=== PATIENT | female | born 1945 | race Caucasian/White ===

== ENCOUNTER → 2022-09-28 | Outpatient (CLI) | payer MEDICARE, MEDICAID ==
[2022-09-28 10:31] LABS: Basophils # (auto) 0 10 ^3/uL (0-0.2); Eosinophils # (auto) 0.2 10 ^3/uL (0-0.8); Eosinophils % (auto) 4.1 % (0.0-7.0); Hematocrit 36.9 % (36.0-46.0); Hemoglobin 12.2 g/dL (12.2-16.2); Lymphocytes # (auto) 1.6 10 ^3/uL (0.4-5.4); Lymphocytes % (auto) 33.6 % (10.0-50.0); Mean Corpuscular Hemoglobin 32.1 pg (28.0-32.0); Mean Corpuscular Volume 97.2 fL (80.0-100.0); Monocytes # (auto) 0.5 10 ^3/uL (0-1.3); Monocytes % (auto) 10.5 % (0.0-12.0); Neutrophils # (auto) 2.4 10 ^3/uL (1.6-8.6); Neutrophils % (auto) 50.8 % (37.0-80.0); Nucleated Red Blood Cells % 0.1 %; Red Cell Distribution Width 13.5 % (11.8-14.3); White Blood Cell 4.7 10^3/uL (4.4-10.8)
[2022-09-28 10:51] LABS: Urine Bacteria FEW /hpf (None Seen); Urine Blood Negative /uL (Negative); Urine Specific Gravity 1.021 (1.001-1.035); Urine WBC 10 /hpf (0 - 5)
[2022-09-28 11:02] LABS: Albumin 3.6 g/dL (3.4-5.0); Calcium 9.1 mg/dL (8.5-10.1); Potassium 3.6 mmol/L (3.5-5.1)
[2022-09-28 11:07] LABS: BUN/Creatinine Ratio 19.4 (10.0-20.0); Bilirubin, Total 0.4 mg/dL (0.2-1.0); Total Protein 7.6 g/dL (6.4-8.2)
== END | disposition home or self-care (01) ==
LOC: LAB 10:05
PROVIDERS: ATTEND Student in an Organized Health Care Education/Training Program
DX: I10 Essential (primary) hypertension (principal); E03.8 Other specified hypothyroidism; R06.02 Shortness of breath; Z79.899 Other long term (current) drug therapy
CPT/HCPCS: 36415; 80053; 80061; 81001; 83036; 83880; 84439; 84443; 85025

== ENCOUNTER 2023-05-27 17:38 | Inpatient (IN) | payer MEDICARE, MEDICAID ==
[~2023-05-27] VITALS: Ht 157.5 cm; Wt 69.2 kg
[2023-05-27 18:29] LABS: Basophils # (auto) 0 10 ^3/uL (0-0.2); Basophils % (auto) 0.1 % (0.0-2.0); Eosinophils # (auto) 0 10 ^3/uL (0-0.8); Hematocrit 35.3 % (36.0-46.0); Hemoglobin 11.7 g/dL (12.2-16.2); Lymphocytes # (auto) 0.9 10 ^3/uL (0.4-5.4); Lymphocytes % (auto) 12.2 % (10.0-50.0); Mean Corpuscular Hemoglobin 31.5 pg (28.0-32.0); Mean Corpuscular Hgb Conc. 33.1 g/dL (32.0-36.0); Monocytes # (auto) 0.7 10 ^3/uL (0-1.3); Monocytes % (auto) 9.4 % (0.0-12.0); Neutrophils % (auto) 78.3 % (37.0-80.0); Red Blood Cells 3.72 10^6/uL (4.0-5.20); White Blood Cell 7.6 10^3/uL (4.4-10.8)
[2023-05-27 18:30] VITALS: PULSE 110; RESP 15; O2SAT 94
[2023-05-27 18:43] LABS: Prothrombin Time 10.5 sec (9.3-11.8)
[2023-05-27 18:46] LABS: Alanine Aminotransferase 47 U/L (7-40); Albumin 3.9 g/dL (3.2-4.8); Alkaline Phosphatase 99 U/L (46-116); Anion Gap 12 (5-15); Aspartate Aminotransferase 66 U/L (13-40); BUN/Creatinine Ratio 17.7 (10.0-20.0); Blood Urea Nitrogen 11 mg/dL (9-23); Calcium 8.5 mg/dL (8.7-10.4); Carbon Dioxide 18 mmol/L (20-30); Chloride 106 mmol/L (98-107); Glucose 113 mg/dL (74-106); Magnesium 1.6 mg/dL (1.6-2.6); Potassium 3.3 mmol/L (3.5-5.1); Sodium 136 mmol/L (136-145)
[2023-05-27 18:47] LABS: Bilirubin, Total 0.7 mg/dL (0.2-1.0); Total Protein 6.6 g/dL (5.7-8.2)
[2023-05-27] MEDS ORDERED: MORPHINE SULFATE INJ 2 MG/ml SYRG IV ONE ×2 (19:30→20:00)
[2023-05-27] MEDS ORDERED: ONDANSETRON HCL 4 MG/2 ML VIAL IV ONE (19:30)
[2023-05-27] MEDS ORDERED: NITROGLYCERIN 0.4 MG SL TAB SL ONE (20:30)
[2023-05-27] MEDS ORDERED: ASPirin 81 mg TAB PO ONE (20:30)
[2023-05-27 21:25] LABS: Rapid Influenza A Negative (Negative); Rapid Influenza B Negative (Negative)
[2023-05-27 21:26] LABS: COVID19 ANTIGEN SOFIA FIA POSITIVE (NEGATIVE)
[2023-05-27 23:10] VITALS: PULSE 92; RESP 22; O2SAT 97
[2023-05-28] VITALS (9 sets, daily range): BP systolic 119–145; BP diastolic 72–95; PULSE 71–100; RESP 16–20; TEMP 36.9; O2SAT 96–99
[2023-05-28] MEDS ORDERED: ONDANSETRON HCL 4 MG/2 ML VIAL IV ONE (00:15)
[2023-05-28] MEDS ORDERED: NITROGLYCERIN 0.4 MG SL TAB SL ONE (00:15)
[2023-05-28] MEDS ORDERED: MORPHINE SULFATE INJ 2 MG/ml SYRG IV ONE (00:15)
[2023-05-28] MEDS ORDERED: LORazepam 2MG/ML-1ML VIAL IV ONE (01:45)
[2023-05-28] MEDS ORDERED: ENOXAPARIN SOD 60 MG/0.6 ML SYRINGE SC ONE (02:15)
[2023-05-28] MEDS ORDERED: PANTOPRAZOLE 40 MG/10 ML VIAL INJ IV ONE (02:15)
[2023-05-28] MEDS ORDERED: ACETAMINOPHEN 500 MG TAB PO PRN (02:15)
[2023-05-28] MEDS ORDERED: guaiFENesin-DM 100/10mg/5ml SYR PO ONE (02:15)
[2023-05-28] MEDS ORDERED: REMDESIVIR PER PHARMACY 0 ML IV SCH (02:15)
[2023-05-28] MEDS ORDERED: DOXYCYCLINE 100MG/250ML 250 ML IV SCH (02:19)
[2023-05-28 02:26] LABS: Base Excess -2.9 mmol/L (-2.0-2.0)
[2023-05-28] MEDS ORDERED: NITROGLYCERIN 0.4 MG SL TAB SL PRN (02:30)
[2023-05-28] MEDS ORDERED: ONDANSETRON HCL 4 MG/2 ML VIAL IV PRN (02:30)
[2023-05-28] MEDS ORDERED: MORPHINE SULFATE INJ 2 MG/ml SYRG IV PRN (02:30)
[2023-05-28] MEDS ORDERED: ENOXAPARIN SOD 80 MG/0.8ML SYRINGE SC ONE (02:45)
[2023-05-28] MEDS ORDERED: ENOXAPARIN SOD 80 MG/0.8ML SYRINGE SC SCH (03:00)
[2023-05-28 03:13] LABS: Magnesium 1.8 mg/dL (1.6-2.6)
[2023-05-28] MEDS: AZITHROMYCIN 500MG/ 250ML 250 ML IV SCH ×2 (03:36→22:28)
[2023-05-28 03:37] LABS: CRP High Sensitivity 11.98 mg/dL (<1.0)
[2023-05-28 03:40] LABS: Thyroid Stimulating Hormone 0.57 uIU/mL (0.358-3.74)
[2023-05-28] MEDS: IOHEXOL 350 MG/ML 100ML IJ ONE ×2 (03:53→06:11)
[2023-05-28 09:20] LABS: Urine Bacteria MOD /hpf (None Seen); Urine Blood 1+ /uL (Negative); Urine Clarity Clear (Clear); Urine Color Yellow (Yellow); Urine Mucus FEW (None Seen); Urine Protein, UAD 3+ (Negative); Urine WBC 11 /hpf (0 - 5); Urine pH 6.5 (5.0-8.0)
[2023-05-28 09:26] LABS: Urine Specific Gravity > 1.050 (1.001-1.035)
[2023-05-28] MEDS: DexAMETHasone SOD PHOS 10MG/1ML VIAL INJ IV SCH (09:36)
[2023-05-28] MEDS: ASCORBIC ACID 1,000 MG TAB PO SCH (09:37)
[2023-05-28] MEDS: CHOLECALCIFEROL (VITD3) 2,000 UNIT CAP/TAB PO SCH (09:37)
[2023-05-28] MEDS ORDERED: REMDESIVIR 200 MG in NS 210ml LOADING DOSE ADULT IV ONE (10:00)
[2023-05-28] MEDS ORDERED: ENOXAPARIN SOD 60 MG/0.6 ML SYRINGE SC SCH (10:00)
[2023-05-28 11:07] LABS: Basophils # (auto) 0 10 ^3/uL (0-0.2); Basophils % (auto) 0.2 % (0.0-2.0); Eosinophils # (auto) 0 10 ^3/uL (0-0.8); Eosinophils % (auto) 0.3 % (0.0-7.0); Hematocrit 33.7 % (36.0-46.0); Hemoglobin 10.8 g/dL (12.2-16.2); Lymphocytes # (auto) 0.5 10 ^3/uL (0.4-5.4); Mean Corpuscular Hemoglobin 31.3 pg (28.0-32.0); Mean Corpuscular Hgb Conc. 32.2 g/dL (32.0-36.0); Mean Corpuscular Volume 97.5 fL (80.0-100.0); Monocytes # (auto) 0.4 10 ^3/uL (0-1.3); Monocytes % (auto) 8.4 % (0.0-12.0); Neutrophils # (auto) 3.9 10 ^3/uL (1.6-8.6); Neutrophils % (auto) 80.1 % (37.0-80.0); Nucleated Red Blood Cells % 0.1 %; Red Blood Cells 3.45 10^6/uL (4.0-5.20); Red Cell Distribution Width 14.2 % (11.8-14.3); White Blood Cell 4.9 10^3/uL (4.4-10.8)
[2023-05-28] MEDS ORDERED: PRAV20TA3 PO (11:09)
[2023-05-28] MEDS ORDERED: LEVO-177 PO (11:09)
[2023-05-28] MEDS ORDERED: TOPI50TA53 PO (11:09)
[2023-05-28] MEDS ORDERED: PRIM50TA5 PO (11:09)
[2023-05-28] MEDS ORDERED: CELE1CAP8 PO (11:09)
[2023-05-28] MEDS ORDERED: CLON0.1T PO (11:09)
[2023-05-28] MEDS ORDERED: MIRA50TA PO (11:09)
[2023-05-28] MEDS ORDERED: SUL500T PO (11:09)
[2023-05-28] MEDS ORDERED: FLUT230A2 (11:09)
[2023-05-28] MEDS ORDERED: ISOS1TAB28 PO (11:09)
[2023-05-28] MEDS ORDERED: LABE200T6 PO (11:09)
[2023-05-28] MEDS ORDERED: LOSA100T58 PO (11:09)
[2023-05-28] MEDS: BUDESONIDE (INHALATION) 180 MCG IH IN SCH ×2 (11:10→22:30)
[2023-05-28 11:26] LABS: Alanine Aminotransferase 66 U/L (7-40); Albumin 3.7 g/dL (3.2-4.8); Alkaline Phosphatase 113 U/L (46-116); Anion Gap 10 (5-15); Aspartate Aminotransferase 84 U/L (13-40); BUN/Creatinine Ratio 16.1 (10.0-20.0); Blood Urea Nitrogen 10 mg/dL (9-23); Calcium 9.2 mg/dL (8.5-10.1); Carbon Dioxide 21 mmol/L (20-30); Chloride 108 mmol/L (98-107); Glucose 133 mg/dL (74-106); LDL Cholesterol 57 mg/dL (< 100); Potassium 3.2 mmol/L (3.5-5.1); Sodium 139 mmol/L (136-145); Triglycerides 144 mg/dL (< 150)
[2023-05-28 11:27] LABS: Bilirubin, Total 0.6 mg/dL (0.2-1.0); Cholesterol 121 mg/dL (< 200); HDL Cholesterol 43 mg/dL (40-59); Total Protein 6.6 g/dL (5.7-8.2)
[2023-05-28 11:47] LABS: Amphetamine Screen, Urine Neg (NEGATIVE); Barbiturate Scree,Urine Neg (NEGATIVE); Benzodiazephine Screen, Urine Neg (NEGATIVE); Cannabinoid Screen, Urine Neg (NEGATIVE); Cocaine Screen, Urine Neg (NEGATIVE); Opiate Scree,Urine Pos (NEGATIVE); Phencyclidine Screen, Urine Neg (NEGATIVE)
[2023-05-28] MEDS ORDERED: POTASSIUM CHL 20 Meq TABLET PO ONE (12:30)
[2023-05-28] MEDS ORDERED: BACL20TA PO (13:09)
[2023-05-28] MEDS ORDERED: ASPI81CH59 PO (13:09)
[2023-05-28] MEDS ORDERED: DENO60SO SC (13:09)
[2023-05-28] MEDS ORDERED: HYDR25TA5 GT (13:09)
[2023-05-28] MEDS ORDERED: ESOM20CA PO (13:09)
[2023-05-28] MEDS ORDERED: CALCTAB50 OR (13:09)
[2023-05-28] MEDS: PRIMIDONE 50 MG TAB PO SCH (22:27)
[2023-05-28] MEDS: LABETALOL HCL 200 MG TAB PO SCH (22:28)
[2023-05-28] MEDS: TOPIRAMATE 25 MG TAB PO SCH (22:28)
[2023-05-29] VITALS (11 sets, daily range): BP systolic 115–156; BP diastolic 55–95; PULSE 60–82; RESP 16–22; TEMP 97.5–98.4; O2SAT 95–99
[2023-05-29] MEDS: LEVOTHYROXINE SODIUM 88 MCG TAB PO SCH (05:51)
[2023-05-29 06:05] LABS: Basophils # (auto) 0 10 ^3/uL (0-0.2); Basophils % (auto) 0.2 % (0.0-2.0); Eosinophils # (auto) 0 10 ^3/uL (0-0.8); Hematocrit 33.6 % (36.0-46.0); Hemoglobin 11.1 g/dL (12.2-16.2); Lymphocytes # (auto) 0.5 10 ^3/uL (0.4-5.4); Lymphocytes % (auto) 15.1 % (10.0-50.0); Mean Corpuscular Hemoglobin 31.6 pg (28.0-32.0); Mean Corpuscular Volume 95.6 fL (80.0-100.0); Monocytes # (auto) 0.6 10 ^3/uL (0-1.3); Monocytes % (auto) 17.8 % (0.0-12.0); Neutrophils # (auto) 2.2 10 ^3/uL (1.6-8.6); Neutrophils % (auto) 66.9 % (37.0-80.0); Nucleated Red Blood Cells % 0.2 %; Red Blood Cells 3.51 10^6/uL (4.0-5.20); Red Cell Distribution Width 14.1 % (11.8-14.3); White Blood Cell 3.3 10^3/uL (4.4-10.8)
[2023-05-29 06:30] LABS: Alanine Aminotransferase 51 U/L (7-40); Albumin 3.8 g/dL (3.2-4.8); Alkaline Phosphatase 95 U/L (46-116); Anion Gap 7 (5-15); Aspartate Aminotransferase 53 U/L (13-40); BUN/Creatinine Ratio 21.9 (10.0-20.0); Blood Urea Nitrogen 14 mg/dL (9-23); Calcium 9.2 mg/dL (8.7-10.4); Carbon Dioxide 22 mmol/L (20-30); Chloride 111 mmol/L (98-107); Glucose 120 mg/dL (74-106); Magnesium 1.9 mg/dL (1.6-2.6); Potassium 4.2 mmol/L (3.5-5.1); Sodium 140 mmol/L (136-145)
[2023-05-29 06:31] LABS: Bilirubin, Total 0.4 mg/dL (0.2-1.0); Total Protein 6.8 g/dL (5.7-8.2)
[2023-05-29 07:15] LABS: CRP High Sensitivity 8.59 mg/dL (<1.0)
[2023-05-29] MEDS: BUDESONIDE (INHALATION) 180 MCG IH IN SCH ×2 (10:20→19:29)
[2023-05-29] MEDS: DexAMETHasone SOD PHOS 10MG/1ML VIAL INJ IV SCH (10:41)
[2023-05-29] MEDS: LABETALOL HCL 200 MG TAB PO SCH ×2 (10:41→20:44)
[2023-05-29] MEDS: hydroCHLOROthiazide 25 MG TAB PO SCH (10:42)
[2023-05-29] MEDS: TOPIRAMATE 25 MG TAB PO SCH ×2 (10:42→20:44)
[2023-05-29] MEDS: CHOLECALCIFEROL (VITD3) 2,000 UNIT CAP/TAB PO SCH (10:42)
[2023-05-29] MEDS: ASCORBIC ACID 1,000 MG TAB PO SCH (10:42)
[2023-05-29] MEDS: PRIMIDONE 50 MG TAB PO SCH ×2 (10:43→20:45)
[2023-05-29] MEDS: ENOXAPARIN SOD 40 MG/0.4 ML SYRINGE SC SCH (10:45)
[2023-05-29] MEDS: ALBUTEROL SULF HFA 90MCG INH 200DOSE IN PRN (12:03)
[2023-05-29] MEDS: ACETAMINOPHEN 325 MG TAB PO PRN (13:16)
[2023-05-29] MEDS: REMDESIVIR 100mg 100 MG in SODIUM CHL 0.9% 230 ML IV SCH (15:29)
[2023-05-29] MEDS: LEVALBUTEROL HCL 1.25 MG/3 ML NEB HHN SCH (19:28)
[2023-05-29] MEDS: AZITHROMYCIN 500MG/ 250ML 250 ML IV SCH (20:45)
[2023-05-29] MEDS ORDERED: ACETYLCYSTEINE 20%(200MG/ML) SOL 4ML NEB SCH (22:00)
[2023-05-30] VITALS (17 sets, daily range): BP systolic 103–157; BP diastolic 53–79; PULSE 62–90; RESP 18–20; TEMP 97.6–98.5; O2SAT 95–100
[2023-05-30] MEDS: ACETYLCYSTEINE 20%(200MG/ML) SOL 4ML NEB SCH ×4 (01:22→20:02)
[2023-05-30] MEDS: LEVALBUTEROL HCL 1.25 MG/3 ML NEB HHN SCH ×4 (01:22→20:02)
[2023-05-30] MEDS: LEVOTHYROXINE SODIUM 88 MCG TAB PO SCH (06:27)
[2023-05-30 06:50] LABS: Basophils # (auto) 0 10 ^3/uL (0-0.2); Basophils % (auto) 0.2 % (0.0-2.0); Eosinophils # (auto) 0 10 ^3/uL (0-0.8); Hematocrit 32.4 % (36.0-46.0); Hemoglobin 10.8 g/dL (12.2-16.2); Lymphocytes # (auto) 0.7 10 ^3/uL (0.4-5.4); Lymphocytes % (auto) 16.1 % (10.0-50.0); Mean Corpuscular Hemoglobin 31.6 pg (28.0-32.0); Mean Corpuscular Hgb Conc. 33.2 g/dL (32.0-36.0); Mean Corpuscular Volume 95.2 fL (80.0-100.0); Monocytes # (auto) 0.8 10 ^3/uL (0-1.3); Monocytes % (auto) 17.8 % (0.0-12.0); Neutrophils # (auto) 2.9 10 ^3/uL (1.6-8.6); Neutrophils % (auto) 65.9 % (37.0-80.0); Nucleated Red Blood Cells % 0.1 %; Red Cell Distribution Width 13.7 % (11.8-14.3); White Blood Cell 4.3 10^3/uL (4.4-10.8)
[2023-05-30 06:59] LABS: Alanine Aminotransferase 38 U/L (7-40); Alkaline Phosphatase 86 U/L (46-116); Anion Gap 7 (5-15); BUN/Creatinine Ratio 27.1 (10.0-20.0); Blood Urea Nitrogen 16 mg/dL (9-23); Calcium 9.1 mg/dL (8.7-10.4); Carbon Dioxide 24 mmol/L (20-30); Chloride 106 mmol/L (98-107); Glucose 107 mg/dL (74-106); Potassium 3.5 mmol/L (3.5-5.1); Sodium 137 mmol/L (136-145)
[2023-05-30 07:01] LABS: Albumin 3.7 g/dL (3.2-4.8); Aspartate Aminotransferase 27 U/L (13-40); Bilirubin, Total 0.4 mg/dL (0.2-1.0); Total Protein 6.6 g/dL (5.7-8.2)
[2023-05-30] MEDS: BUDESONIDE (INHALATION) 180 MCG IH IN SCH ×2 (07:55→20:03)
[2023-05-30] MEDS: CHOLECALCIFEROL (VITD3) 2,000 UNIT CAP/TAB PO SCH (08:40)
[2023-05-30] MEDS: hydroCHLOROthiazide 25 MG TAB PO SCH (08:40)
[2023-05-30] MEDS: ASCORBIC ACID 1,000 MG TAB PO SCH (08:40)
[2023-05-30] MEDS: PRIMIDONE 50 MG TAB PO SCH ×2 (08:40→22:21)
[2023-05-30] MEDS: DexAMETHasone SOD PHOS 10MG/1ML VIAL INJ IV SCH (08:40)
[2023-05-30] MEDS: TOPIRAMATE 25 MG TAB PO SCH ×2 (08:40→22:21)
[2023-05-30] MEDS: LABETALOL HCL 200 MG TAB PO SCH ×2 (08:41→22:25)
[2023-05-30] MEDS: ENOXAPARIN SOD 40 MG/0.4 ML SYRINGE SC SCH (08:41)
[2023-05-30] MEDS ORDERED: POTASSIUM EFFERVESENT TAB 25 MEQ PO ONE (08:45)
[2023-05-30 12:02] LABS: Bilirubin, Direct 0.2 mg/dL (<0.3)
[2023-05-30 12:10] LABS: CRP High Sensitivity 3.33 mg/dL (<1.0)
[2023-05-30] MEDS: REMDESIVIR 100mg 100 MG in SODIUM CHL 0.9% 230 ML IV SCH (16:00)
[2023-05-30] MEDS: ALBUTEROL SULF HFA 90MCG INH 200DOSE IN PRN (16:53)
[2023-05-30] MEDS: FUROSEMIDE 20 MG/2 ML VIAL IV SCH (18:02)
[2023-05-30] MEDS: AZITHROMYCIN 500MG/ 250ML 250 ML IV SCH (22:20)
[2023-05-30] MEDS: ACETAMINOPHEN 325 MG TAB PO PRN (22:21)
[2023-05-31] VITALS (17 sets, daily range): BP systolic 109–145; BP diastolic 44–85; PULSE 67–89; RESP 16–20; TEMP 97.6–98.7; O2SAT 94–100
[2023-05-31] MEDS: ACETYLCYSTEINE 20%(200MG/ML) SOL 4ML NEB SCH ×4 (00:50→18:00)
[2023-05-31] MEDS: LEVALBUTEROL HCL 1.25 MG/3 ML NEB HHN SCH ×4 (00:50→18:44)
[2023-05-31] MEDS: FUROSEMIDE 20 MG/2 ML VIAL IV SCH ×3 (05:56→18:06)
[2023-05-31] MEDS: LEVOTHYROXINE SODIUM 88 MCG TAB PO SCH (05:56)
[2023-05-31 06:55] LABS: Alanine Aminotransferase 33 U/L (7-40); Albumin 3.8 g/dL (3.2-4.8); Alkaline Phosphatase 79 U/L (46-116); Anion Gap 10 (5-15); Aspartate Aminotransferase 28 U/L (13-40); BUN/Creatinine Ratio 22.4 (10.0-20.0); Bilirubin, Direct 0.2 mg/dL (<0.3); Blood Urea Nitrogen 15 mg/dL (9-23); Calcium 9.5 mg/dL (8.5-10.1); Carbon Dioxide 25 mmol/L (20-30); Chloride 102 mmol/L (98-107); Glucose 88 mg/dL (74-106); Potassium 3.3 mmol/L (3.5-5.1); Sodium 137 mmol/L (136-145)
[2023-05-31 06:56] LABS: Bilirubin, Total 0.4 mg/dL (0.2-1.0); Hematocrit 33.4 % (36.0-46.0); Hemoglobin 11.3 g/dL (12.2-16.2); Mean Corpuscular Hgb Conc. 33.8 g/dL (32.0-36.0); Mean Corpuscular Volume 94.5 fL (80.0-100.0); Red Blood Cells 3.53 10^6/uL (4.0-5.20); Red Cell Distribution Width 13.8 % (11.8-14.3); Total Protein 6.8 g/dL (5.7-8.2); White Blood Cell 5.5 10^3/uL (4.4-10.8)
[2023-05-31 07:01] LABS: Band Neutrophils % (manual) 0; Basophils % (manual) 0 (0.0-2.0); Blast Cells 0; Eosinophils % (manual) 0 (0-7); Metamyelocytes % 0; Myelocytes % 0; Promyelocytes % 0; Reactive Lymphocytes 0
[2023-05-31 07:04] LABS: CRP High Sensitivity 1.72 mg/dL (<1.0)
[2023-05-31] MEDS: BUDESONIDE (INHALATION) 180 MCG IH IN SCH ×2 (07:37→18:44)
[2023-05-31] MEDS ORDERED: POTASSIUM CHLORIDE 20 MEQ, LIDOCAINE 1% (LOCAL ANESTH.) 2 ML in SODIUM CHL 0.9% 100 ML IV ONE (08:30)
[2023-05-31 09:40] LABS: Lymphocytes % (manual) 26 (10.0-50.0); Monocytes % (manual) 14 (0-12)
[2023-05-31] MEDS: CHOLECALCIFEROL (VITD3) 2,000 UNIT CAP/TAB PO SCH (09:40)
[2023-05-31] MEDS: hydroCHLOROthiazide 25 MG TAB PO SCH (09:40)
[2023-05-31] MEDS: ASCORBIC ACID 1,000 MG TAB PO SCH (09:40)
[2023-05-31] MEDS: LABETALOL HCL 200 MG TAB PO SCH ×2 (09:40→21:20)
[2023-05-31] MEDS: DexAMETHasone SOD PHOS 10MG/1ML VIAL INJ IV SCH (09:40)
[2023-05-31] MEDS: TOPIRAMATE 25 MG TAB PO SCH ×2 (09:40→21:06)
[2023-05-31 09:41] LABS: Platelet Estimate Adequate
[2023-05-31] MEDS: ENOXAPARIN SOD 40 MG/0.4 ML SYRINGE SC SCH (09:41)
[2023-05-31] MEDS: ENALAPRIL MALEATE 2.5 MG TAB PO SCH ×2 (09:41→21:20)
[2023-05-31] MEDS: PRIMIDONE 50 MG TAB PO SCH ×2 (09:41→21:06)
[2023-05-31] MEDS: REMDESIVIR 100mg 100 MG in SODIUM CHL 0.9% 230 ML IV SCH (16:40)
[2023-05-31] MEDS: AZITHROMYCIN 500MG/ 250ML 250 ML IV SCH (21:07)
[2023-06-01] VITALS (16 sets, daily range): BP systolic 99–164; BP diastolic 62–92; PULSE 70–89; RESP 16–20; TEMP 98.4–99.1; O2SAT 93–99
[2023-06-01] MEDS: LEVALBUTEROL HCL 1.25 MG/3 ML NEB HHN SCH ×4 (00:10→18:20)
[2023-06-01] MEDS: ACETYLCYSTEINE 20%(200MG/ML) SOL 4ML NEB SCH ×4 (00:11→18:20)
[2023-06-01 05:38] LABS: Hematocrit 33.3 % (36.0-46.0); Mean Corpuscular Hemoglobin 31.2 pg (28.0-32.0); Mean Corpuscular Hgb Conc. 33.1 g/dL (32.0-36.0); Mean Corpuscular Volume 94.2 fL (80.0-100.0); Red Blood Cells 3.54 10^6/uL (4.0-5.20); Red Cell Distribution Width 13.8 % (11.8-14.3); White Blood Cell 5.7 10^3/uL (4.4-10.8)
[2023-06-01 05:51] LABS: Basophils % (manual) 0 (0.0-2.0); Blast Cells 0; Metamyelocytes % 0; Myelocytes % 0; Promyelocytes % 0; Reactive Lymphocytes 0
[2023-06-01 05:58] LABS: Alanine Aminotransferase 35 U/L (7-40); Albumin 3.7 g/dL (3.2-4.8); Alkaline Phosphatase 75 U/L (46-116); Anion Gap 12 (5-15); Aspartate Aminotransferase 26 U/L (13-40); BUN/Creatinine Ratio 19.4 (10.0-20.0); Blood Urea Nitrogen 13 mg/dL (9-23); Calcium 9.3 mg/dL (8.5-10.1); Carbon Dioxide 23 mmol/L (20-30); Chloride 102 mmol/L (98-107); Glucose 91 mg/dL (74-106); Potassium 2.9 mmol/L (3.5-5.1); Sodium 137 mmol/L (136-145)
[2023-06-01 05:59] LABS: Bilirubin, Direct 0.2 mg/dL (<0.3); Bilirubin, Total 0.4 mg/dL (0.2-1.0); Total Protein 6.6 g/dL (5.7-8.2)
[2023-06-01 06:08] LABS: CRP High Sensitivity 2.37 mg/dL (<1.0)
[2023-06-01] MEDS: LEVOTHYROXINE SODIUM 88 MCG TAB PO SCH (06:09)
[2023-06-01] MEDS: FUROSEMIDE 20 MG/2 ML VIAL IV SCH (06:09)
[2023-06-01 06:45] LABS: Band Neutrophils % (manual) 1; Eosinophils % (manual) 1 (0-7); Lymphocytes % (manual) 21 (10.0-50.0); Monocytes % (manual) 17 (0-12); Platelet Estimate Adequate; RBC Morphology Normal
[2023-06-01] MEDS: BUDESONIDE (INHALATION) 180 MCG IH IN SCH ×2 (07:24→18:22)
[2023-06-01] MEDS ORDERED: POTASSIUM CHLORIDE 40 MEQ, LIDOCAINE 1% (LOCAL ANESTH.) 4 ML in SODIUM CHL 0.9% 250 ML IV ONE (08:45)
[2023-06-01 09:37] LABS: Base Excess 0.6 mmol/L (-2.0-2.0)
[2023-06-01] MEDS: TOPIRAMATE 25 MG TAB PO SCH ×2 (09:43→22:00)
[2023-06-01] MEDS: DexAMETHasone SOD PHOS 10MG/1ML VIAL INJ IV SCH (09:43)
[2023-06-01] MEDS: LABETALOL HCL 200 MG TAB PO SCH ×2 (09:44→21:59)
[2023-06-01] MEDS: ASCORBIC ACID 1,000 MG TAB PO SCH (09:44)
[2023-06-01] MEDS: PRIMIDONE 50 MG TAB PO SCH ×2 (09:44→21:59)
[2023-06-01] MEDS: CHOLECALCIFEROL (VITD3) 2,000 UNIT CAP/TAB PO SCH (09:45)
[2023-06-01] MEDS: ENOXAPARIN SOD 40 MG/0.4 ML SYRINGE SC SCH (09:45)
[2023-06-01] MEDS: ENALAPRIL MALEATE 2.5 MG TAB PO SCH ×2 (09:45→22:00)
[2023-06-01] MEDS ORDERED: FUROSEMIDE 20 MG/2 ML VIAL IV SCH (10:00)
[2023-06-01] MEDS: REMDESIVIR 100mg 100 MG in SODIUM CHL 0.9% 230 ML IV SCH (15:36)
[2023-06-02] VITALS (11 sets, daily range): BP systolic 103–133; BP diastolic 47–57; PULSE 69–89; RESP 18–21; TEMP 98.3–98.7; O2SAT 92–99
[2023-06-02] MEDS: LEVALBUTEROL HCL 1.25 MG/3 ML NEB HHN SCH ×3 (00:32→14:07)
[2023-06-02 05:46] LABS: Hematocrit 33.2 % (36.0-46.0); Hemoglobin 10.8 g/dL (12.2-16.2); Mean Corpuscular Hemoglobin 31.3 pg (28.0-32.0); Mean Corpuscular Hgb Conc. 32.6 g/dL (32.0-36.0); Mean Corpuscular Volume 95.9 fL (80.0-100.0); Red Blood Cells 3.46 10^6/uL (4.0-5.20); Red Cell Distribution Width 13.8 % (11.8-14.3); White Blood Cell 5.2 10^3/uL (4.4-10.8)
[2023-06-02 05:52] LABS: Basophils % (manual) 0 (0.0-2.0); Blast Cells 0; Eosinophils % (manual) 0 (0-7); Metamyelocytes % 0; Myelocytes % 0; Promyelocytes % 0
[2023-06-02 06:03] LABS: Alanine Aminotransferase 29 U/L (7-40); Albumin 3.6 g/dL (3.2-4.8); Alkaline Phosphatase 70 U/L (46-116); Anion Gap 10 (5-15); Aspartate Aminotransferase 20 U/L (13-40); BUN/Creatinine Ratio 31.7 (10.0-20.0); Bilirubin, Total 0.4 mg/dL (0.2-1.0); Blood Urea Nitrogen 20 mg/dL (9-23); Calcium 9.2 mg/dL (8.5-10.1); Carbon Dioxide 24 mmol/L (20-30); Chloride 104 mmol/L (98-107); Glucose 97 mg/dL (74-106); Potassium 3.1 mmol/L (3.5-5.1); Sodium 138 mmol/L (136-145); Total Protein 6.4 g/dL (5.7-8.2)
[2023-06-02 06:11] LABS: CRP High Sensitivity 2.57 mg/dL (<1.0)
[2023-06-02] MEDS: LEVOTHYROXINE SODIUM 88 MCG TAB PO SCH (06:28)
[2023-06-02] MEDS: ACETYLCYSTEINE 20%(200MG/ML) SOL 4ML NEB SCH ×3 (06:48→14:07)
[2023-06-02 07:04] LABS: Band Neutrophils % (manual) 2; Lymphocytes % (manual) 27 (10.0-50.0); Monocytes % (manual) 11 (0-12); Platelet Estimate Adequate; Reactive Lymphocytes 3
[2023-06-02] MEDS ORDERED: POTASSIUM EFFERVESENT TAB 25 MEQ PO ONE (09:00)
[2023-06-02] MEDS: TOPIRAMATE 25 MG TAB PO SCH (10:46)
[2023-06-02] MEDS: PRIMIDONE 50 MG TAB PO SCH (10:46)
[2023-06-02] MEDS: ASCORBIC ACID 1,000 MG TAB PO SCH (10:46)
[2023-06-02] MEDS: DexAMETHasone SOD PHOS 10MG/1ML VIAL INJ IV SCH (10:46)
[2023-06-02] MEDS: ENOXAPARIN SOD 40 MG/0.4 ML SYRINGE SC SCH (10:47)
[2023-06-02] MEDS: ENALAPRIL MALEATE 2.5 MG TAB PO SCH (10:47)
[2023-06-02] MEDS: CHOLECALCIFEROL (VITD3) 2,000 UNIT CAP/TAB PO SCH (10:47)
[2023-06-02] MEDS: LABETALOL HCL 200 MG TAB PO SCH (10:48)
[2023-06-02] MEDS ORDERED: DEX4T PO (11:32)
[2023-06-02] MEDS ORDERED: ALBU108A5 IN (11:32)
[2023-06-02] MEDS ORDERED: AZIT-74 PO (11:57)
== END 2023-06-02 16:25 | disposition home health service (06) | DRG 177 ==
LOC: ER 17:38 → EDBD 17:38 → TELE 05-28 02:28 → TELE-WESTW 05-28 11:34
PROVIDERS: ADMIT Internal Medicine; ATTEND Internal Medicine
PROC: XW033E5 Introduction of Remdesivir Anti-infective into Peripheral Vein, Percutaneous Approach, New Technology Group 5 (ICD-10-PCS; principal; 2023-05-28)
DX: U07.1 COVID-19 (principal); I21.A1 Myocardial infarction type 2; I50.33 Acute on chronic diastolic (congestive) heart failure; J12.82 Pneumonia due to coronavirus disease 2019; J96.01 Acute respiratory failure with hypoxia; J44.0 Chronic obstructive pulmonary disease with (acute) lower respiratory infection; I24.9 Acute ischemic heart disease, unspecified; D64.9 Anemia, unspecified; M06.9 Rheumatoid arthritis, unspecified; G89.29 Other chronic pain; I49.9 Cardiac arrhythmia, unspecified; R00.0 Tachycardia, unspecified; E78.5 Hyperlipidemia, unspecified; E87.6 Hypokalemia; C50.919 Malignant neoplasm of unspecified site of unspecified female breast; I48.0 Paroxysmal atrial fibrillation; I11.0 Hypertensive heart disease with heart failure; Z23 Encounter for immunization; Z91.199 Patient's noncompliance with other medical treatment and regimen due to unspecified reason; Z88.5 Allergy status to narcotic agent
CPT/HCPCS: 36415; 36600; 71045; 71275; 80053; 80061; 80076; 80307; 81001; 82248; 82306; 82607; 82728; 82805; 83036; 83605; 83615; 83735; 83880; 84443; 84484; 85007; 85025; 85027; 85379; 85610; 85730; 86141; 87040; 87070; 87205; 87426; 87804; 93005; 93306; 94640; 97163; 99291; C9113; G0378; J1100; J2001; J2405

== ENCOUNTER → 2024-01-03 | Outpatient (CLI) | payer MEDICARE, MEDICAID ==
[~2024-01-03] MED LIST: ALBU108A5 IN; ASPI81CH59 PO; AZIT-74 PO; BACL20TA PO; CALCTAB50 OR; CELE1CAP29 PO; CLON0.1T PO; DENO60SO SC; DEX4T PO; ESOM20CA PO; FLUT230A2; HYDR25TA5 GT; ISOS1TAB28 PO; LABE200T10 PO; LEVO-177 PO; LOSA-535 PO; MIRA50TA PO; PRAV20TA3 PO; PRIM50TA5 PO; SUL500T PO; TOPI50TA53 PO
== END | disposition home or self-care (01) ==
LOC: XYW 14:03
PROVIDERS: ATTEND Student in an Organized Health Care Education/Training Program
DX: I51.89 Other ill-defined heart diseases (principal); R07.9 Chest pain, unspecified
CPT/HCPCS: 93306

== ENCOUNTER 2024-02-26 11:27 | Emergency (ER) | payer MEDICARE, MEDICAID ==
[~2024-02-26] VITALS: Ht 157.5 cm; Wt 68.0 kg
[2024-02-26 12:00] LABS: Basophils # (auto) 0.1 10 ^3/uL (0-0.2); Basophils % (auto) 0.7 % (0.0-2.0); Eosinophils # (auto) 0.2 10 ^3/uL (0-0.8); Eosinophils % (auto) 2.6 % (0.0-7.0); Hematocrit 33.9 % (36.0-46.0); Hemoglobin 11.4 g/dL (12.2-16.2); Lymphocytes # (auto) 2.4 10 ^3/uL (0.4-5.4); Lymphocytes % (auto) 28.6 % (10.0-50.0); Mean Corpuscular Hemoglobin 32.9 pg (28.0-32.0); Mean Corpuscular Hgb Conc. 33.6 g/dL (32.0-36.0); Mean Corpuscular Volume 97.9 fL (80.0-100.0); Monocytes # (auto) 0.6 10 ^3/uL (0-1.3); Monocytes % (auto) 7.3 % (0.0-12.0); Neutrophils % (auto) 60.8 % (37.0-80.0); Platelet Count (auto) 195 10^3/uL (140-450); Red Blood Cells 3.46 10^6/uL (4.0-5.20); Red Cell Distribution Width 15.5 % (11.8-14.3); White Blood Cell 8.3 10^3/uL (4.4-10.8)
[2024-02-26] MEDS: ASPirin 325 MG TAB PO ONE (12:01)
[2024-02-26] MEDS: NITROGLYCERIN 0.4 MG SL TAB SL ONE (12:03)
[2024-02-26 12:19] LABS: Alanine Aminotransferase 21 U/L (7-40); Albumin 4.1 g/dL (3.2-4.8); Alkaline Phosphatase 69 U/L (46-116); Anion Gap 9 (5-15); Aspartate Aminotransferase 18 U/L (13-40); BUN/Creatinine Ratio 24.8 (10.0-20.0); Bilirubin, Total 0.3 mg/dL (0.2-1.0); Blood Urea Nitrogen 25 mg/dL (9-23); Calcium 9.5 mg/dL (8.7-10.4); Carbon Dioxide 20 mmol/L (20-30); Chloride 111 mmol/L (98-107); Glucose 101 mg/dL (74-106); Potassium 4.4 mmol/L (3.5-5.1); Sodium 140 mmol/L (136-145)
[2024-02-26 12:28] LABS: Prothrombin Time 10.8 sec (9.3-11.8)
[2024-02-26 13:31] LABS: Urine Bacteria FEW /hpf (None Seen); Urine Budding Yeast FEW /hpf (None Seen); Urine Mucus FEW (None Seen); Urine WBC 326 /hpf (0 - 5)
[2024-02-26 13:46] LABS: Urine Blood Normal /uL (Negative); Urine Clarity Turbid (Clear); Urine Color Yellow (Yellow); Urine Protein, UAD 1+ (Negative); Urine Specific Gravity 1.016 (1.001-1.035); Urine Urobilinogen Normal (Negative)
[2024-02-26] MEDS ORDERED: NITR-87 PO (16:42)
[2024-02-26] MEDS: cefTRIAXone 1GM/50ML D5W 50 ML IV ONE (17:10)
[2024-02-26 17:11] VITALS: BP 149/64; PULSE 66; RESP 16; TEMP 97.8; O2SAT 95
== END 2024-02-26 17:50 | disposition admitted as inpatient to this hospital (09) ==
LOC: ER 11:27
DX: R07.89 Other chest pain (principal); N39.0 Urinary tract infection, site not specified; I10 Essential (primary) hypertension; E78.5 Hyperlipidemia, unspecified; J45.909 Unspecified asthma, uncomplicated; Z85.9 Personal history of malignant neoplasm, unspecified; Z88.8 Allergy status to other drugs, medicaments and biological substances; Z79.899 Other long term (current) drug therapy
CPT/HCPCS: 36415; 71045; 80053; 81001; 83880; 84484; 85025; 85610; 85730; 93005; 96365; 99285; J0696

== ENCOUNTER → 2024-04-25 | Outpatient (CLI) | payer MEDICARE, MEDICAID ==
[~2024-04-25] MED LIST changes: +NITR-87 PO
[2024-04-25 13:16] LABS: Basophils # (auto) 0 10 ^3/uL (0-0.2); Basophils % (auto) 0.4 % (0.0-2.0); Eosinophils # (auto) 0.1 10 ^3/uL (0-0.8); Eosinophils % (auto) 2.1 % (0.0-7.0); Hematocrit 34.8 % (36.0-46.0); Hemoglobin 11.6 g/dL (12.2-16.2); Lymphocytes # (auto) 1.8 10 ^3/uL (0.4-5.4); Lymphocytes % (auto) 25.9 % (10.0-50.0); Mean Corpuscular Hemoglobin 32.8 pg (28.0-32.0); Mean Corpuscular Hgb Conc. 33.2 g/dL (32.0-36.0); Mean Corpuscular Volume 98.8 fL (80.0-100.0); Monocytes # (auto) 0.7 10 ^3/uL (0-1.3); Monocytes % (auto) 9.9 % (0.0-12.0); Neutrophils # (auto) 4.2 10 ^3/uL (1.6-8.6); Neutrophils % (auto) 61.7 % (37.0-80.0); Platelet Count (auto) 183 10^3/uL (140-450); Red Blood Cells 3.52 10^6/uL (4.0-5.20); Red Cell Distribution Width 15.2 % (11.8-14.3); White Blood Cell 6.8 10^3/uL (4.4-10.8)
[2024-04-25 13:34] LABS: Urine Bacteria MOD /hpf (None Seen); Urine Blood Negative /uL (Negative); Urine Clarity Turbid (Clear); Urine Color Yellow (Yellow); Urine Hyaline Cast FEW /lpf (0 - 2); Urine Mucus FEW (None Seen); Urine Protein, UAD 1+ (Negative); Urine Specific Gravity 1.025 (1.001-1.035); Urine Urobilinogen Normal (Negative); Urine WBC 111 /hpf (0 - 5)
[2024-04-25 13:36] LABS: Alanine Aminotransferase 15 U/L (7-40); Albumin 4.4 g/dL (3.2-4.8); Alkaline Phosphatase 81 U/L (46-116); Anion Gap 7 (5-15); Aspartate Aminotransferase 11 U/L (13-40); BUN/Creatinine Ratio 18.6 (10.0-20.0); Blood Urea Nitrogen 21 mg/dL (9-23); Calcium 10.1 mg/dL (8.7-10.4); Carbon Dioxide 25 mmol/L (20-31); Chloride 108 mmol/L (98-107); Glucose 99 mg/dL (74-106); Potassium 4.2 mmol/L (3.5-5.1); Sodium 140 mmol/L (136-145)
[2024-04-25 13:37] LABS: Bilirubin, Total 0.3 mg/dL (0.2-1.0); Total Protein 7.7 g/dL (5.7-8.2)
[2024-04-28 13:07] LABS: Saccharomyces cerevisiae IgA 77.6 Units (0.0-24.9)
== END | disposition home or self-care (01) ==
LOC: LAB 12:43
PROVIDERS: ATTEND Student in an Organized Health Care Education/Training Program
DX: I10 Essential (primary) hypertension (principal); E03.8 Other specified hypothyroidism; K92.1 Melena
CPT/HCPCS: 36415; 80053; 81001; 84439; 84443; 85025; 86256; 86671

== ENCOUNTER 2024-05-26 12:38 | Inpatient (IN) | payer MEDICARE, MEDICAID ==
[~2024-05-26] VITALS: Ht 157.5 cm; Wt 75.5 kg
--- NOTE | 2024-05-26 12:56 | ECG ---
[facility] Test Date: 2024-05-26 Test Time: 12:47:37 Pat Name: AMI DYE Department: er Room: 0231T Gender: F Financial Services Specialist: gp : 1945 Requested By: SAE ROGEL Order Number: [id number] Reading MD: Gavin Dougherty Measurements Intervals [place] Rate: 85 P: 49 GA: 165 QRS: 8 QRSD: 97 T: 33 QT: 398 QTc: 474 Interpretive Statements Sinus rhythm Supraventricular bigeminy Baseline wander in lead(s) V2 Electronically Signed On 05-28-2024 16:14:26 PST by Gavin Dougherty Please click the below link to view image of tracing.
[2024-05-26] MEDS: HYDROcodone-ACET 5/325MG TAB PO ONE (13:00)
[2024-05-26] MEDS: methylPREDNISolone SOD SUCC 125 MG/2 ML VL IV ONE (13:00)
--- NOTE | 2024-05-26 13:34 | ED.PDOC ---
SOB-HPI HPI Comments 78y F who presents to the ED via EMS for chief complaint of shortness of breath. Pt states she has been having shortness of breath for the past 10 days getting progressively worse. Pt states she has been having associated cough with headache and states despite using her asthma inhaler 3-5x daily, she has continued to have shortness of breath and called EMS. Pt states during this time period, she has also been having exacerbation of her shortness of breath when attempting to lie flat with pt having noted history of CHF. Pt states she lives by herself and states she has no recent sick contacts. Pt otherwise denies chest pain, diaphoresis, fever, chills, nausea , vomiting, diarrhea, dysuria, or hematuria. Pt in the ED, has noted stable vitals with 02 sat of 95% on room with all other vitals in normal range. Pt otherwise denies any other symptoms at this time. Chief Complaint: Shortness of Breath Time Seen by MD: 13:24 Reviewed notes: Service Desk Lead Notes, Allergies Information Source: Patient, Emergency Med Personnel Mode of Arrival: EMS Brought in by: EMS Past Medical History PAST MEDICAL HISTORY: AFIB, Asthma, CHF, COPD, HTN, Thyroid Surgical History: Unknown LOSS CONTROL CONSULTANT History: Denies all LOSS CONTROL CONSULTANT Hx Family History Family History: Unknown Social History Smoker: Non-Smoker Alcohol: Denies ETOH Use Drugs: Denies Drug Use Lives In: Home Constitutional: denies: chills, diaphoresis, fatigue, fever, malaise, sweats, weakness, others EENTM: denies: blurred vision, double vision, ear bleeding, ear discharge, ear drainage, ear pain, ear ringing, eye pain, eye redness, hearing loss, mouth pain, mouth swelling, nasal discharge, nose bleeding, nose congestion, nose pain, photophobia, tearing, throat pain, throat swelling, voice changes, others Respiratory: reports: cough, SOB at rest, shortness of breath, SOB with excertion, wheezing; denies: hemoptysis, orthopnea, stridor, others Cardiovascular: denies: chest pain, dizzy spells, diaphoresis, Dyspnea on exertion, edema, irregular heart beat, left arm pain, lightheadedness, palpitations, PND, syncope, others Gastrointestinal: denies: abdomen distended, abdominal pain, blood streaked bowels, constipated, diarrhea, dysphagia, difficulty swallowing, hematemesis, melena, nausea, poor appetite, poor fluid intake, rectal bleeding, rectal pain, vomiting, others Genitourinary: denies: abnormal vagina bleeding, burning, dyspareunia, dysuria, flank pain, frequency, hematuria, incontinence, pain, , vagina discharge, urgency, others Neurological: denies: dizziness, fainting, headache, left sided numbness, left sided weakness, numbness, paresthesia, pre-existing deficit, right sided numbness, right sided weakness, seizure, speech problems, tingling, tremors, weakness, others Musculoskeletal: denies: back pain, gout, joint pain, joint swelling, muscle pain, muscle stiffness, neck pain, others Integumetry: denies: bruises, change in color, change in hair/nails, dryness, laceration, lesions, lumps, rash, wounds, others Allergic/Immunocompromised: denies: Difficulty Healing, Frequent Infections, Hives, Itching, others Hematologic/Lymphatic: denies: anemia, blood clots, easy bleeding, easy bruising, swollen glands, others Endocrine: denies: excessive hunger, excessive sweating, excessive thirst, excessive urination, flushing, intolerance to cold, intolerance to heat, unexplained weight gain, unexplained weight loss, others Psychiatric: denies: anxiety, bipolar disorder, depression, hopeless, panic disorder, schizophrenia, sleepless, suicidal, others All Other Systems: Reviewed and Negative Physical Exam General Appearance: Mild Distress, Obese HEENT: Other (Pupils symmetric, no facial asymmetry, moist mucous membranes) Neck: Full Range of Motion, Normal Inspection Respiratory: Accessory Muscle Use, Decreased Breath Sounds, Respiratory Distre ss (Mild), Wheezing Cardiovascular: No Edema, No JVD, Regular Rate/Rhythm Breast Exam: Deferred Gastrointestinal: Non Tender, Soft Genitalia: Deferred Pelvic: Deferred Rectal: Deferred Extremities: Normal inspection, Normal range of motion, Non-tender, No pedal edema Neurologic: Alert (Oriented x4), Normal Affect, Normal Mood, Other (Moves all extremities. No gross focal deficit.) Cerebellar Function: NOT DONE Reflexes: NOT DONE Skin: Dry, Normal Color, Warm Lymphatic: NOT DONE Was a procedure done? Was a procedure done?: No Differential Dx Differential Diagnosis: Bronchitis, CHF, COPD, Pneumonia, Pulmonary Embolism, Respiratory Distress, Pharyngitis, URI Comments COVID, Influenza, among others X-Ray, Labs, Meds, VS Vital Signs Date Time Temp Pulse Resp B/P (MAP) Pulse Ox O2 Delivery O2 Flow Rate FiO2 05/26/24 15:41 98.1 89 14 123/66 (85) 96 98.1 05/26/24 13:37 18 93 Room Air* 0 21 05/26/24 13:26 98.8 86 20 123/73 (90) 94 05/26/24 13:11 20 95 Room Air* 0 21 05/26/24 12:47 85 Lab Test 05/26/24 14:29 05/26/24 13:23 Range/Units Troponin I High Sensitivity 6 7 </=34 ng/L Sodium Level 137 136-145 mmol/L Potassium Level 3.8 3.5-5.1 mmol/L Chloride Level 107 98-107 mmol/L Carbon Dioxide Level 20 20-31 mmol/L Anion Gap 10 5-15 Blood Urea Nitrogen 43 H 9-23 mg/dL Creatinine 1.28 H 0.550-1.02 mg/dL Glomerular Filtration Rate Calc 43 >90 mL/min BUN/Creatinine Ratio 33.6 H 10.0-20.0 Serum Glucose 107 H 74-106 mg/dL Lactic Acid Level 0.8 0.4-2.0 mmol/L Calcium Level 9.2 8.7-10.4 mg/dL Total Bilirubin 0.5 0.2-1.0 mg/dL Aspartate Amino Transferase (AST) 25 13-40 U/L Alanine Aminotransferase (ALT) 31 7-40 U/L Alkaline Phosphatase 120 H 46-116 U/L B-Type Natriuretic Peptide 170.27 0-100 pg/mL Total Protein 5.8 5.7-8.2 g/dL Albumin 3.2 3.2-4.8 g/dL Current Medications Medications (Trade) Dose Ordered Sig/Pat Route Start Time Stop Time Status Last Admin Albuterol (Ventolin Medneb) 5 mg ONCE ONCE NEB 05/26/24 13:00 05/26/24 13:02 DC 05/26/24 13:35 Ipratropium [place] (Atrovent Medneb) 0.5 mg ONCE ONCE NEB 05/26/24 13:00 05/26/24 13:02 DC 05/26/24 13:35 PROCEDURE(s): CXRP - CHEST PORTABLE REASON: sob ORDER NUMBER(s): [id number], ACCESSION NUMBER(s): [id number] EXAM: XR Chest, 1 View CLINICAL INDICATION: sob TECHNIQUE: Frontal view of the chest. COMPARISON: XY CHEST PORTABLE on DOS: 02/26/24, XY CHEST XRAY 1 VIEW on DOS: 05/30/23, XY CHEST PORTABLE on DOS: 05/27/23 FINDINGS: LUNGS AND PLEURAL SPACES: Unremarkable. No consolidation. No pneumothorax. HEART: Unremarkable. No cardiomegaly. MEDIASTINUM: Unremarkable. Normal mediastinal contour. BONES/JOINTS: Unremarkable. No acute fracture. OTHER FINDINGS: . . . IMPRESSION: No acute cardiopulmonary process. HS:Y X-Ray, Labs, Meds, VS Comment 78-year-old female with a history of asthma/COPD, CHF, hypertension and thyroid disease brought in by EMS from home complaining of cough, congestion, shortness a breath, and orthopnea without relief after using her inhalers at home Vitals remarkable for oxygen saturation 93% on room air Exam remarkable for audible wheezing, mild respiratory distress, productive sounding cough, diminished breath sounds at the bases Rhythm strip independently interpreted by me: Sinus rhythm, rate 85, no ectopy. Chest x-ray unremarkable CBC pending, CMP remarkable for BUN 43, creatinine 1.28 Lactate normal, 2 troponins negative, BNP 170 Patient treated with the following in the ED: Albuterol 5 mg/Atrovent 0.5 mg nebulized, Solu-Medrol 125 mg IV, [place] 5/325 mg p.o. On re-evaluation, patient is saturating normally on nasal cannula, but on room air her oxygen saturation drops to 93%. She is not in respiratory distress. Plan is to admit the patient for respiratory support as needed. Time of 1ST Reevaluation: 14:00 Reevaluation 1ST: Unchanged Time of 2ND Reevaluation: 16:05 Reevaluation 2ND: Improved Patient Education/Counseling: Diagnosis, Treatment Family Education/Counseling: No Family Present Departure 1 Departure Time of Disposition: 16:05 Impression: Primary Impression: Acute exacerbation of chronic obstructive pulmonary disease (COPD) Additional Impression: Hypoxia Disposition: 09 ADMITTED INPATIENT Admit to: Tele Condition: Guarded Critical Care Note Critical Care Time?: No Stability Stability form required: No Heart Score Heart Score: Heart Score Response (Comments) Value History Slightly Suspicious 0 EKG Repolarization Disturb 1 Age >65 2 Risk Factors 1 or 2 risk factors 1 Troponin Normal limit 0 Total 4 I personally scribed for SAE CONNER MD ([facility]) on 05/26/24 at 13:34. Electronically submitted by Shadi Navarro ([facility]). I personally scribed for SAE CONNER MD ([facility]) on 05/26/24 at 13:39. Electronically submitted by Shadi Navarro ([facility]). SAE CONNER MD May 26, 2024 13:34
[2024-05-26] MEDS: ALBUTEROL SULF 2.5 MG/0.5ML(0.5%) NEB SOLN NEB ONE (13:35)
[2024-05-26] MEDS: IPRATROPIUM BROM 0.5 MG/2.5ML INH SOL NEB ONE (13:35)
[2024-05-26 13:59] LABS: Alanine Aminotransferase 31 U/L (7-40); Albumin 3.2 g/dL (3.2-4.8); Alkaline Phosphatase 120 U/L (46-116); Anion Gap 10 (5-15); Aspartate Aminotransferase 25 U/L (13-40); BUN/Creatinine Ratio 33.6 (10.0-20.0); Bilirubin, Total 0.5 mg/dL (0.2-1.0); Blood Urea Nitrogen 43 mg/dL (9-23); Calcium 9.2 mg/dL (8.7-10.4); Carbon Dioxide 20 mmol/L (20-31); Chloride 107 mmol/L (98-107); Glucose 107 mg/dL (74-106); Potassium 3.8 mmol/L (3.5-5.1); Sodium 137 mmol/L (136-145); Total Protein 5.8 g/dL (5.7-8.2)
--- NOTE | 2024-05-26 16:56 | DVH ---
EXAM: XR Chest, 1 View CLINICAL INDICATION: sob TECHNIQUE: Frontal view of the chest. COMPARISON: XY CHEST PORTABLE on DOS: 02/26/24, XY CHEST XRAY 1 VIEW on DOS: 05/30/23, XY CHEST PORTAB LE on DOS: 05/27/23 FINDINGS: LUNGS AND PLEURAL SPACES: Unremarkable. No consolidation. No pneumothorax. HEART: Unremarkable. No cardiomegaly. MEDIASTINUM: Unremarkable. Normal mediastinal contour. BONES/JOINTS: Unremarkable. No acute fracture. OTHER FINDINGS: . . . IMPRESSION: No acute cardiopulmonary process. HS:Y
[2024-05-26] MEDS ORDERED: DOCUSATE SOD 100 MG CAP PO PRN (18:15)
[2024-05-26] MEDS ORDERED: HYDROcodone-ACET 5/325MG TAB PO PRN (18:15)
[2024-05-26] MEDS ORDERED: ALBUTEROL SULF 2.5 MG/0.5ML(0.5%) NEB SOLN NEB PRN (18:15)
[2024-05-26] MEDS ORDERED: ACETAMINOPHEN 325 MG TAB PO PRN (18:15)
[2024-05-26] MEDS ORDERED: ONDANSETRON HCL 4 MG/2 ML VIAL IV PRN (18:15)
--- NOTE | 2024-05-26 19:41 | DVHHP2 ---
History of Present Illness Reason for Visit: COPD with acute exacerbation History of Present Illness The patient is a 78-year-old female with past medical history of COPD, CHF, asthma, AFib, thyroid disease, and hypertension who presented to [facility] ED with complaint of shortness of breaths. Patient reports she has been having shortness of breaths for the past 10 days, associated cough, headache, exacerbated when ambulating, on exertion, wheezing, getting worse today that prompted this visit. Patient was seen and evaluated in the ED, laboratory data shows WBC 8.6, hemoglobin 10.4, hematocrit 32.3, platelets 202, sodium 137, potassium 3.8, BUN 43, creatinine 1.28, glucose 107, BNP 170.27, troponin 6. Chest x-ray show no acute cardiopulmonary disease. Patient was started on IV Solu-Medrol, please see medication orders section in the computer. On my assessment, patient denied chest pain, no headache, no dizziness, no diaphoresis, currently on oxygen, no diarrhea, no nausea, no vomiting, no fever, no chills. No other modifying factor or other associated signs and symptoms noted. Patient was admitted for further evaluation and medical management. Past Medical History AFIB, Asthma, CHF, COPD, HTN, Thyroid Past Surgical History No past surgical history on file Family History Reviewed, noncontributory to the management of this case. Past Social History The patient lives at home, denies smoking, alcohol or illicit drugs abuse. Review of Systems Constitutional: Yes: Weakness; No: Fever, Chills, Sweats, Malaise, Other Eyes: No: Pain, Vision change, Conjunctivae inflammation, Eyelid inflammation, Other, Redness ENT: No: Ear pain, Ear discharge, Nose pain, Nose discharge, Nose congestion, Mouth pain, Mouth swelling, Throat pain, Throat swelling, Other Respiratory: Shortness of breath, SOB with excertion, Wheezing, Other (SOB at rest); No: Cough, Dry, Hemoptysis, Pleuritic Pain, Sputum, Wheezing Cardiovascular: No: Chest Pain, Palpitations, Orthopnea, Paroxysmal Noc. Dyspnea, Edema, Lt Headedness, Other Gastrointestinal: No: Nausea, Vomiting, Abdominal Pain, Diarrhea, Constipation, Melena, Hematochezia, Other Genitourinary: No Dysuria, No Frequency, No Incontinence, No Hematuria, No Retention, No Other Musculoskeletal: No: other, neck pain, shoulder pain, arm pain, back pain, hand pain, leg pain, foot pain Skin: No: Rash, Lesions, Jaundice, Bruising, Other Neurological: No: Weakness, Numbness, Incoordination, Change in speech, Confusion, Seizures, Other Allergies: Coded Allergies: Nalbuphine (Verified Allergy, Unknown, 02/26/24) Morphine (Verified Adverse Reaction, Mild, 02/26/24) PER PT MAY HALLUCINATE BUT IS ABLE TO TAKE MEDICATION Medications Current Medications Medications Dose Ordered Sig/Pat Route Start Time Stop Time Status Last Admin Dose Admin Albuterol 2.5 mg Q4HPRN PRN NEB 05/26/24 18:15 Ipratropium [place] 0.5 mg Q4HPRN PRN NEB 05/26/24 18:15 Methylprednisolone Sodium Succinate 40 mg Q8HR IV 05/26/24 22:00 Famotidine 20 mg Q12HR IV 05/26/24 22:00 Aspirin 81 mg DAILY PO 05/27/24 10:00 Hydralazine HCl 10 mg Q6HP PRN IV 05/26/24 18:15 Levothyroxine Sodium 88 mcg QAM@0600 PO 05/27/24 06:00 Acetaminophen/ Hydrocodone Bitart 1 tab Q4HP PRN PO 05/26/24 18:15 Ondansetron HCl 4 mg Q4HP PRN IV 05/26/24 18:15 Docusate Sodium 100 mg BIDPRN PRN PO 05/26/24 18:15 Acetaminophen 650 mg Q6HP PRN PO 05/26/24 18:15 Exam Vital Signs Vital Signs Date Time Temp Pulse Resp B/P (MAP) Pulse Ox O2 Delivery O2 Flow Rate FiO2 05/26/24 15:41 98.1 89 14 123/66 (85) 96 98.1 05/26/24 13:37 Room Air* 0 21 General Appearance: Alert, Oriented X3, Cooperative, No acute distress HEENT: Atraumatic, PERRLA, EOMI, Mucous membr. moist/pink Respiratory: Normal air movement, Other (Wheezing) Cardiovascular: Regular rate, Normal S1, Normal S2, No murmurs Abdominal: Normal bowel sounds, Soft, No tenderness, No hepatospenomegaly, No masses Extremities: No clubbing, No cyanosis, No edema, Normal pulses, No tenderness/swelling Skin: No rashes, No breakdown, No significant lesion Neuro: Normal speech, Normal tone, Sensation intact, Cranial nerves 3-12 NL, Reflexes 2+, Other (Generalized weakness) Psych/Mental Status: Mental status NL, Mood NL Labs/Xrays Labs Test 05/26/24 14:29 05/26/24 13:23 Range/Units Troponin I High Sensitivity 6 </=34 ng/L Thyroid Stimulating Hormone (TSH) 0.85 0.55-4.78 uIU/mL Sodium Level 137 136-145 mmol/L Potassium Level 3.8 3.5-5.1 mmol/L Chloride Level 107 98-107 mmol/L Carbon Dioxide Level 20 20-31 mmol/L Anion Gap 10 5-15 Blood Urea Nitrogen 43 H 9-23 mg/dL Creatinine 1.28 H 0.550-1.02 mg/dL Glomerular Filtration Rate Calc 43 >90 mL/min BUN/Creatinine Ratio 33.6 H 10.0-20.0 Serum Glucose 107 H 74-106 mg/dL Lactic Acid Level 0.8 0.4-2.0 mmol/L Calcium Level 9.2 8.7-10.4 mg/dL Total Bilirubin 0.5 0.2-1.0 mg/dL Aspartate Amino Transferase (AST) 25 13-40 U/L Alanine Aminotransferase (ALT) 31 7-40 U/L Alkaline Phosphatase 120 H 46-116 U/L B-Type Natriuretic Peptide 170.27 0-100 pg/mL Total Protein 5.8 5.7-8.2 g/dL Albumin 3.2 3.2-4.8 g/dL PATIENT: AMI DYE ACCT: [id number] UNIT: [id number] : 1945 LOC: ER ROOM / BED: / AGE / SEX: 78 / F ADM STATUS: REG ER SERVICE [id number] ORDERING PHYSICIAN: SAE CONNER MD PROCEDURE(s): CXRP - CHEST PORTABLE REASON: sob ORDER NUMBER(s): [id number], ACCESSION NUMBER(s): [id number] EXAM: XR Chest, 1 View CLINICAL INDICATION: sob TECHNIQUE: Frontal view of the chest. COMPARISON: XY CHEST PORTABLE on DOS: 02/26/24, XY CHEST XRAY 1 VIEW on DOS: 05/30/23, XY CHEST PORTABLE on DOS: 05/27/23 FINDINGS: LUNGS AND PLEURAL SPACES: Unremarkable. No consolidation. No pneumothorax. HEART: Unremarkable. No cardiomegaly. MEDIASTINUM: Unremarkable. Normal mediastinal contour. BONES/JOINTS: Unremarkable. No acute fracture. OTHER FINDINGS: IMPRESSION: No acute cardiopulmonary process. Assessment/Plan Assessment/Plan COPD with acute exacerbation Generalized weakness Acute hypoxic respiratory failure Plan 1. Admit to telemetry unit 2. Breathing treatment 3. Pain control management 4. Management of fluids and electrolytes 5. Consultation for pulmonology 6. Diagnostic tests chest x-ray 7. DVT prophylaxis-on SCDs 8. Repeat labs CBC, CMP in a.m. 9. Continue with current medical management 10. Treatment plan discussed with patient and RN. Patient verbalized understanding. Plan discussed with: Patient, Other (RN) My Orders Orders - DEQUAN MINOR DNP Procedure Category Date Status Time Albuterol Medneb PHA 05/26/24 In Process (Ventolin Medneb) 18:15 Ipratropium Medneb PHA 05/26/24 In Process (Atrovent Medneb) 18:15 Methylprednisolone PHA 05/26/24 In Process Sod Succ (Solu Medrol 22:00 Famotidine Injection PHA 05/26/24 In Process (Pepcid Injection) 22:00 Aspirin Tablet PHA 05/27/24 In Process 10:00 Hydralazine Injection PHA 05/26/24 In Process (Apresoline Inject 18:15 Levothyroxine Tablet PHA 05/27/24 In Process (Synthroid Tablet) 06:00 Allergies [place] 05/26/24 In Process 18:11 Code Status CODE 05/26/24 Transmitted 18:11 Oxygen Per Hour RT 05/26/24 Transmitted 18:11 Hydrocodone-Acet PHA 05/26/24 In Process 5/325mg Tab ([place] 18:15 Ondansetron Hcl PHA 05/26/24 In Process (Zofran) 18:15 Docusate Sodium PHA 05/26/24 In Process Capsule ([place] 18:15 Complete Blood Count LAB 05/27/24 Verified 04:00 Comprehensive LAB 05/27/24 Verified Metabolic Panel 04:00 Cardiac DIET 05/26/24 Transmitted Diet-2gna,Lofat,Lochol Dinner Echo 2d Mode Cardiac US 05/26/24 Logged DOP 18:11 Condition: Serious [place] 05/26/24 In Process 18:11 Acetaminophen Tablet [facility] 05/26/24 In Process (Tylenol Tablet) 18:15 Bedrest With Bathroom [facility] 05/26/24 In Process Privileg 18:11 Sequential [facility] 05/26/24 In Process Compression Device *Consult CONS 05/26/24 Transmitted / 18:21 Admit ADMIT 05/26/24 Verified 19:40 Nitroglycerin [facility] 05/26/24 Verified Sublingual (Ntrostat 19:45 Morphine Sulfate [facility] 05/26/24 Verified Injection 19:45 Notify Md Of Changes [facility] 05/26/24 Verified From Base 19:40 Sales Enablement Manager For [facility] 05/26/24 Verified 24 Hours 19:40 Emergency Dysrhythmia [facility] 05/26/24 Verified Protocol 19:40 Rhythm Strips Once [facility] 05/26/24 Verified Every Shift 19:40 Oxygen By Nasal RT 05/26/24 Verified Cannula 19:40 Problem List: (1) COPD with acute exacerbation (2) Generalized weakness (3) Acute hypoxic respiratory failure Date of Service: May 26, 2024 Billing Provider: DEQUAN MINOR DNP Common Visit Codes: [id number] INP/OBS CARE (HIGH) DEQUAN MINOR DNP May 26, 2024 19:41
[2024-05-26] MEDS ORDERED: NITROGLYCERIN 0.4 MG SL TAB SL PRN (19:45)
[2024-05-26] MEDS ORDERED: MORPHINE SULFATE INJ 2 MG/ml SYRG IV PRN (19:45)
[2024-05-26 19:46] LABS: Basophils # (auto) 0 10 ^3/uL (0-0.2); Basophils % (auto) 0.2 % (0.0-2.0); Eosinophils # (auto) 0.3 10 ^3/uL (0-0.8); Eosinophils % (auto) 3.8 % (0.0-7.0); Hematocrit 32.3 % (36.0-46.0); Hemoglobin 10.4 g/dL (12.2-16.2); Lymphocytes # (auto) 1.1 10 ^3/uL (0.4-5.4); Lymphocytes % (auto) 12.9 % (10.0-50.0); Mean Corpuscular Hemoglobin 31.2 pg (28.0-32.0); Mean Corpuscular Hgb Conc. 32.2 g/dL (32.0-36.0); Mean Corpuscular Volume 96.8 fL (80.0-100.0); Monocytes # (auto) 1.1 10 ^3/uL (0-1.3); Monocytes % (auto) 13.1 % (0.0-12.0); Nucleated Red Blood Cells % 0.1 %; Platelet Count (auto) 202 10^3/uL (140-450); Red Blood Cells 3.33 10^6/uL (4.0-5.20); Red Cell Distribution Width 15.2 % (11.8-14.3); White Blood Cell 8.6 10^3/uL (4.4-10.8)
[2024-05-26 20:30] VITALS: O2SAT 98
[2024-05-26 20:44] VITALS: BP 123/69; PULSE 92; RESP 18; TEMP 97.5; O2SAT 98
[2024-05-26] MEDS: FAMOTIDINE (10MG/ML) 2ML VL IV SCH (23:11)
[2024-05-26] MEDS: methylPREDNISolone SOD SUCC 40 MG/ML VL IV SCH (23:11)
[2024-05-26 23:16] VITALS: PULSE 82; RESP 16; O2SAT 96
[2024-05-27] VITALS (16 sets, daily range): BP systolic 102–154; BP diastolic 46–74; PULSE 76–103; RESP 16–20; TEMP 97.7–99; O2SAT 92–99
[2024-05-27 01:55] LABS: Rapid Influenza A Negative (Negative); Rapid Influenza B Negative (Negative)
[2024-05-27 01:56] LABS: COVID19 ANTIGEN SOFIA FIA NEGATIVE (NEGATIVE)
[2024-05-27] MEDS: LEVOTHYROXINE SODIUM 88 MCG TAB PO SCH ×2 (05:52→09:24)
[2024-05-27 06:46] LABS: Basophils # (auto) 0 10 ^3/uL (0-0.2); Basophils % (auto) 0.5 % (0.0-2.0); Eosinophils # (auto) 0.3 10 ^3/uL (0-0.8); Eosinophils % (auto) 3.7 % (0.0-7.0); Hematocrit 27.9 % (36.0-46.0); Hemoglobin 9.2 g/dL (12.2-16.2); Lymphocytes # (auto) 1.3 10 ^3/uL (0.4-5.4); Lymphocytes % (auto) 15.4 % (10.0-50.0); Mean Corpuscular Hemoglobin 31.4 pg (28.0-32.0); Mean Corpuscular Volume 95.3 fL (80.0-100.0); Monocytes # (auto) 1.3 10 ^3/uL (0-1.3); Monocytes % (auto) 15.4 % (0.0-12.0); Neutrophils # (auto) 5.3 10 ^3/uL (1.6-8.6); Nucleated Red Blood Cells % 0.1 %; Platelet Count (auto) 210 10^3/uL (140-450); Red Blood Cells 2.93 10^6/uL (4.0-5.20); White Blood Cell 8.1 10^3/uL (4.4-10.8)
[2024-05-27 06:49] LABS: Alanine Aminotransferase 26 U/L (7-40); Albumin 3.4 g/dL (3.2-4.8); Alkaline Phosphatase 112 U/L (46-116); Anion Gap 13 (5-15); Aspartate Aminotransferase 18 U/L (13-40); BUN/Creatinine Ratio 31.9 (10.0-20.0); Blood Urea Nitrogen 37 mg/dL (9-23); Calcium 9.7 mg/dL (8.7-10.4); Carbon Dioxide 18 mmol/L (20-31); Chloride 107 mmol/L (98-107); Glucose 84 mg/dL (74-106); Potassium 3.2 mmol/L (3.5-5.1); Sodium 138 mmol/L (136-145)
[2024-05-27 06:50] LABS: Bilirubin, Total 0.3 mg/dL (0.2-1.0); Total Protein 6.5 g/dL (5.7-8.2)
[2024-05-27] MEDS ORDERED: PATIENTS OWN MEDICATION (Baclofen 1 TAB) PO SCH (08:45)
[2024-05-27] MEDS: LABETALOL HCL 200 MG TAB PO SCH (09:23)
[2024-05-27] MEDS: POTASSIUM EFFERVESENT TAB 25 MEQ PO ONE (09:23)
[2024-05-27] MEDS: LOSARTAN POTASSIUM 50 MG TAB PO SCH (09:24)
[2024-05-27] MEDS: PRAVASTATIN SODIUM 20 MG TAB PO SCH (09:24)
[2024-05-27] MEDS: ASPirin 81 mg TAB PO SCH (09:24)
[2024-05-27 09:28] LABS: Phosphorus 3.7 mg/dL (2.4-5.1)
[2024-05-27] MEDS: IPRATROPIUM BROM 0.5 MG/2.5ML INH SOL NEB PRN (09:36)
[2024-05-27] MEDS ORDERED: PATIENTS OWN MEDICATION (Isosorbide Mononitrate (Isosorbide Mononitrate Er) 1 TAB) PO SCH (10:00)
[2024-05-27] MEDS ORDERED: PATIENTS OWN MEDICATION (Losartan Potassium 1 TAB) PO SCH (10:00)
[2024-05-27] MEDS: sulfaSALAzine 500 MG TAB PO SCH (10:00)
[2024-05-27] MEDS ORDERED: TOPIRAMATE PO SCH (10:00)
[2024-05-27] MEDS ORDERED: MIRABEGRON BASE PO SCH (10:00)
[2024-05-27] MEDS: LEVALBUTEROL HCL 1.25 MG/3 ML NEB NEB SCH (12:57)
[2024-05-27] MEDS: DOXYCYCLINE 100MG/250ML 250 ML IV SCH (13:08)
[2024-05-27] MEDS ORDERED: FURO40TA4 PO (14:13)
[2024-05-27] MEDS ORDERED: MULTCAP7 OR (14:13)
[2024-05-27] MEDS ORDERED: INFL100I IV (14:13)
[2024-05-27] MEDS ORDERED: DOCU-265 PO (14:13)
[2024-05-27] MEDS ORDERED: OMEP-448 (14:13)
[2024-05-27] MEDS ORDERED: LIDO3CRE35 TOP (14:13)
[2024-05-27] MEDS ORDERED: NITR0.4S29 SL (14:13)
[2024-05-27] MEDS ORDERED: TRAM50TA2 PO (14:13)
[2024-05-27] MEDS ORDERED: TOLT1CAP29 PO (14:13)
--- NOTE | 2024-05-27 14:17 | DVHPNRES ---
Progress Note Date Seen: May 27, 2024 Resident Creating Document: FREDIS MARTINEZ RESIDENT Medical Necessity Reason Pt with a Central, PICC or Fol: No Subjective Review of Systems AMI DYE is a 78-year-old female with a PMH of asthma, hypertension, dyslipidemia, nonaffiliated arrhythmia, rheumatoid arthritis, ulcerative colitis, breast cancer, bone cancer, hypothyroidism, osteoporosis, chronic pain presented to the ED with the chief complaints of shortness of breaths since night. Patient reported she has been having occasional shortness of breath for fasting does associated with cough, headache. Patient initially thought that her asthma is getting worse, despite of using inhalers did not improved, but got aggravated, even with a mild exertion patient felt severe shortness of breath associated with wheezing but denies fever, chest pain, nausea, vomiting, chills and other associated symptoms. Patient reported no exposure to allergens or smoking or sick contacts or recent travel. PMH: asthma, hypertension, dyslipidemia, nonaffiliated arrhythmia, rheumatoid arthritis, ulcerative colitis, breast cancer, bone cancer, asthma, hypothyroidism, osteoporosis, chronic pain PSH: Denies Family history: Reviewed, noncontributory Social history: Patient lives at home. Denies smoking, alcohol and other drug abuse Patient seen and examined at the bedside. Patient reported minimal improvement in her shortness of breath, wheezing after oxygen but no new complaints. CXR showed no acute abnormality. Patient currently on 2 L oxygen NC, breathing comfortable and giving breathing treatments. Currently giving doxycycline and Solu-Medrol 40 mg IV. Supportive treatment and monitor continuously. Objective vital signs Vital Sign Date Time Temp Pulse Resp B/P (MAP) Pulse Ox O2 Delivery O2 Flow Rate FiO2 05/27/24 13:08 82 16 99 05/27/24 13:00 97.9 102/47 (65) 97.9 05/27/24 09:40 Nasal Cannula* 2 28 Total Intake and Output 05/26/24 05/26/24 05/27/24 15:00 23:00 07:00 Intake Total 125 ml Balance 125 ml medications Current Medications Medications Dose Ordered Sig/Pat Route Start Time Stop Time Status Last Admin Dose Admin Ipratropium [place] 0.5 mg Q4HPRN PRN NEB 05/26/24 18:15 05/27/24 09:36 0.5 MG Methylprednisolone Sodium Succinate 40 mg Q8HR IV 05/26/24 22:00 05/27/24 05:51 40 MG Famotidine 20 mg Q12HR IV 05/26/24 22:00 05/27/24 09:23 20 MG Aspirin 81 mg DAILY PO 05/27/24 10:00 05/27/24 09:24 81 MG Hydralazine HCl 10 mg Q6HP PRN IV 05/26/24 18:15 Levothyroxine Sodium 88 mcg QAM@0600 PO 05/27/24 06:00 05/27/24 05:52 88 MCG Acetaminophen/ Hydrocodone Bitart 1 tab Q4HP PRN PO 05/26/24 18:15 Ondansetron HCl 4 mg Q4HP PRN IV 05/26/24 18:15 Docusate Sodium 100 mg BIDPRN PRN PO 05/26/24 18:15 Acetaminophen 650 mg Q6HP PRN PO 05/26/24 18:15 Nitroglycerin 0.4 mg Q5MINP PRN SL 05/26/24 19:45 Morphine Sulfate 2 mg Q30M PRN IV 05/26/24 19:45 Labetalol HCl 400 mg BID PO 05/27/24 10:00 05/27/24 09:23 400 MG Levothyroxine Sodium 88 mcg DAILY PO 05/27/24 10:00 Pravastatin Sodium 20 mg DAILY PO 05/27/24 10:00 05/27/24 09:24 20 MG Losartan Potassium 100 mg DAILY PO 05/27/24 10:00 05/27/24 09:24 100 MG Primidone 50 mg BID PO 05/27/24 10:00 UNV Sulfasalazine 1,000 mg BID PO 05/27/24 10:00 UNV Patient Own Medication 1 tab PRN PO 05/27/24 08:45 UNV Patient Own Medication 1 tab DAILY PO 05/27/24 10:00 UNV Patient Own Medication 1 tab DAILY PO 05/27/24 10:00 UNV Patient Own Medication 1 tab BID PO 05/27/24 10:00 UNV Doxycycline Hyclate 250 ml @ 125 mls/hr Q12H IV 05/27/24 08:45 05/27/24 13:08 125 MLS/HR Levalbuterol HCl 0.625 mg Q6HR NEB 05/27/24 12:00 05/27/24 12:57 0.625 MG Enoxaparin Sodium 40 mg DAILY SC 05/27/24 10:00 UNV Examination Pt is lying on bed General Appearance: Alert, Oriented X3, Cooperative, Not in acute distress HEENT: Atraumatic, Mucous membranes moist/pink Respiratory: Wheezing in bilateral lower and mid lung castaneda Cardiovascular: Regular rate, Normal S1, Normal S2, No murmurs Abdominal: Active bowel sounds, Soft, no distention, no tenderness Extremities: 1+ edema, Normal pulses, No tenderness/swelling Skin: No Significant rash, except past surgical scars Neuro: Normal speech, sensorimotor deficits none Psych/Mental Status: Mental status NL, Mood NL Nurse was there as rjne during examination laboratory and microbiology Laboratory Tests 05/27/24 04:41 Test 05/27/24 04:41 Range/Units Serum Glucose 84 74-106 mg/dL Labs and/or images reviewed: Labs reviewed by me, Image(s) reviewed by me Problem List/Assessment/Plan Problem List/Assessment/Plan # COPD exacerbation # asthma exacerbation # acute hypoxic respiratory failure due to above - currently on 2 L oxygen NC & breathing treatments - Currently giving doxycycline and Solu-Medrol 40 mg IV - CXR negative for acute changes # Hypokalemia - Repleting - Monitor lab # JAKE likely VM - monitor lab for now # CHF not in exacerbation - continue home meds # rheumatoid arthritis - resume home meds # hypothyroidism - continue home meds Lovenox for now Famotodine Regular diet Goals of care discussed with the patient for more than 27 minutes: Full code status Case management discussed with Dr. Denson, patient and nurse Plan discussed with: Patient My Orders My Orders Orders - FREDIS MARTINEZ RESIDENT Procedure Category Date Status Time Labetalol Hcl Tablet PHA 05/27/24 In Process (Normodyne Tablet) 10:00 Levothyroxine Tablet PHA 05/27/24 In Process (Synthroid Tablet) 10:00 Pravastatin Sodium PHA 05/27/24 In Process Tablet (Pravachol Tab 10:00 Sputum Induction RT 05/27/24 Logged 14:10 Respiratory Culture JACIEL 05/27/24 Logged W/ Gs 14:10 Date of Service: May 27, 2024 Billing Provider: BERENICE DENSON MD Common Visit Codes: [id number] INP/OBS CARE(HIGH) Secondary Visit Codes: [id number] CARE PLAN 30 MINUTES FREDIS MARTINEZ May 27, 2024 14:17 BERENICE DENSON MD May 31, 2024 19:15
[2024-05-27] MEDS: PRIMIDONE 50 MG TAB PO SCH (14:50)
[2024-05-27] MEDS ORDERED: BACLOFEN 10 MG TAB PO SCH (15:45)
[2024-05-27] MEDS: ENOXAPARIN SOD 40 MG/0.4 ML SYRINGE SC SCH (18:18)
[2024-05-27] MEDS: ACETYLCYSTEINE 10 %(100MG/ML) SOL 4ML NEB SCH (19:05)
--- NOTE | 2024-05-27 20:33 | DVHINCON2 ---
Date of service: May 27, 2024 Referring Physician Beth Dey MD Reason for Consultation AE COPD, acute hypoxic respiratory failure. History of Present Illness A 78-year-old woman with past medical history of COPD, CHF, asthma, AFib, thyroid disease, and hypertension who presented to the ED on 05/26/24 with complaint of shortness of breath. Patient reported ongoing SOB for 10 days exacerbated with ambulation and exertion, with associated cough, headache, and wheezing worsening on day of presentation, prompting her to seek medical care. Workup in ED showed WBC 8.6, hemoglobin 10.4, hematocrit 32.3, platelets 202, sodium 137, potassium 3.8, BUN 43, creatinine 1.28, glucose 107, BNP 170.27, and troponin 6. Chest x-ray revealed no acute cardiopulmonary disease. Patient was admitted for further care and pulmonary consultation is requested for evaluation and management due to these findings. Review of Systems: 14-point review of systems negative unless otherwise noted above. Past Medical History: COPD, CHF, asthma, AFib, thyroid disease, and hypertension Past Surgical History: None. Medications: Reviewed. Allergies: Nalbuphine Morphine Family History: Heart disease and lung cancer. Social History: Nonsmoker. No alcohol or illicit drug use. Family History: Cardiovascular disease G8 FATHER FH: heart attack G8 FATHER FH: lung cancer G8 MOTHER Allergies: Coded Allergies: Nalbuphine (Verified Allergy, Unknown, 02/26/24) Morphine (Verified Adverse Reaction, Mild, 02/26/24) PER PT MAY HALLUCINATE BUT IS ABLE TO TAKE MEDICATION Home Meds Active Scripts Respiratory Therapy Supplies (Nebulizer Kit/Tubing/Mout) Kit, APPLIC XX BID PRN, #1 For nebulizing Prov:GERRI BALDWIN RESIDENT 05/28/24 Dextromethorphan Polistirex (Robitussin 12 Hour Cough) 30 Mg/5 Ml Dona, 30 MG PO BID for 10 Days, #120 ML Prov:GERRI BALDWIN 05/28/24 Prednisone (Prednisone) 20 Mg Tab, 20 MG PO DAILY for 4 Days, #4 MG Prov:GERRI BALDWIN 05/28/24 Doxycycline (Monohydrate) (DOXYCYCLINE) 150 Mg Cap, 150 MG PO BID for 7 Days, #14 CAP Prov:GERRI BALDWIN 05/28/24 Acetylcysteine (Mucomyst) 400 Mg/4 Ml So, 100 MG NEB Q6HR for 10 Days, #60 ML Prov:GERRI BALDWIN RESIDENT 05/28/24 Acetaminophen (Acetaminophen) 325 Mg Tab, 650 MG PO Q6HP PRN for 10 Days, #80 TAB Prov:GERRI BALDWIN RESIDENT 05/28/24 Albuterol Sulfate (Albuterol Sulfate Hfa) 108 Mcg/Act Aer, 108 MCG IN Q6HPRN PRN, #1 AER Prov:ZARINA LING MD 06/02/23 Reported Medications Infliximab (Remicade) 100 Mg Inj, 100 MG IV, INJ 05/27/24 Nitroglycerin (NTROSTAT SUBLINGUAL) 0.4 Mg Sl, 0.4 MG SL PRN, TAB *MAY REPEAT EVERY 5 MINUTES X 3 TOTAL IF NO RELIEF, INITIATE ANALGESIC THERAPY. NOTIFY PHYSICIAN *Do not crush. 05/27/24 Multiple Vitamins W/ Minerals (Eye Vitamins) Cap, 1 OR, CAP 05/27/24 Furosemide (Furosemide) 40 Mg Tab, 1 TAB PO DAILY, #30 TAB 5 Refills 05/27/24 Tolterodine Tartrate (Tolterodine Tartrate ER) 4 Mg Cap, 1 CAP PO DAILY 05/27/24 Lidocaine HCl (Lidocaine Hydrochloride) 3 % Cre, TOP PRN for NUMBING 05/27/24 Tramadol Hcl (Tramadol Hcl) 50 Mg Tab, 1 TAB PO DAILYPRN PRN for PAIN SCALE 7 THRU 10 05/27/24 Omeprazole (Omeprazole Dr) 40 Mg Cap 05/27/24 Docusate Sodium (Docusate Sodium) 100 Mg Cap, 1 CAP PO BID 05/27/24 Aspirin (Aspirin Low Dose) 81 Mg Chw, 81 MG PO, TAB.CHEW 05/28/23 Celecoxib (Celecoxib) 200 Mg Cap, 1 CAP PO DAILY 05/28/23 Mirabegron Base (MYRBETRIQ) 50 Mg Tab, 1 TAB PO DAILY 05/28/23 Levothyroxine Sodium (Levothyroxine Sodium) 88 Mcg Tab, 1 TAB PO DAILY 05/28/23 Losartan Potassium (Losartan Potassium) 100 Mg Tab, 1 TAB PO DAILY 05/28/23 Pravastatin Sodium (PRAVACHOL TABLET) 20 Mg Tb, 1 TAB PO DAILY 05/28/23 Sulfasalazine (Azulfidine) 500 Mg Tb, 2 TAB PO BID 05/28/23 Isosorbide Mononitrate (Isosorbide Mononitrate Er) 30 Mg Tab, 1 TAB PO DAILY 05/28/23 Primidone (MYSOLINE TABLET) 50 Mg Tb, 1 TAB PO BID 05/28/23 Labetalol HCl (Labetalol HCl) 200 Mg Tab, 2 TAB PO BID 05/28/23 Clonidine Hydrochloride (Clonidine Hcl) 0.1 Mg Tab, 1 TAB PO BID 05/28/23 Topiramate (Topiramate) 50 Mg Tab, 1 TAB PO BID 05/28/23 Discontinued Reported Medications Baclofen (Baclofen) 20 Mg Tab, 1 TAB PO PRN, #90 TAB 2 Refills 05/28/23 Current Medications Current Medications Medications (Trade) Dose Ordered Sig/Pat Route PRN Reason Start Time Stop Time Status Last Admin Methylprednisolone Sodium Succinate (Solu Medrol) 40 mg Q8HR IV 05/26/24 22:00 05/27/24 14:50 Famotidine (Pepcid Injection) 20 mg Q12HR IV 05/26/24 22:00 05/27/24 09:23 Aspirin 81 mg DAILY PO 05/27/24 10:00 05/27/24 09:24 Levothyroxine Sodium (Synthroid Tablet) 88 mcg QAM@0600 PO 05/27/24 06:00 05/27/24 05:52 Labetalol HCl (Normodyne Tablet) 400 mg BID PO 05/27/24 10:00 05/27/24 09:23 Levothyroxine Sodium (Synthroid Tablet) 88 mcg DAILY PO 05/27/24 10:00 05/27/24 15:04 DC Pravastatin Sodium (Pravachol Tablet) 20 mg DAILY PO 05/27/24 10:00 05/27/24 09:24 Patient Own Medication 1 tab DAILY PO 05/27/24 10:00 05/27/24 08:31 DC Losartan Potassium (Cozaar Tablet) 100 mg DAILY PO 05/27/24 10:00 05/27/24 09:24 Primidone (Mysoline Tablet) 50 mg BID PO 05/27/24 10:00 05/27/24 14:50 Sulfasalazine (Azulfidine) 1,000 mg BID PO 05/27/24 10:00 Patient Own Medication 1 tab PRN PO 05/27/24 08:45 05/27/24 15:38 DC Patient Own Medication 1 tab DAILY PO 05/27/24 10:00 05/27/24 15:01 DC Patient Own Medication 1 tab DAILY PO 05/27/24 10:00 Hold Patient Own Medication 1 tab BID PO 05/27/24 10:00 05/27/24 15:02 DC Doxycycline Hyclate 250 ml @ 125 mls/hr Q12H IV 05/27/24 08:45 05/27/24 13:08 Levalbuterol HCl (Xopenex Medneb) 0.625 mg Q6HR NEB 05/27/24 12:00 05/27/24 19:04 Enoxaparin Sodium (Lovenox) 40 mg DAILY SC 05/27/24 10:00 05/27/24 18:18 Acetylcysteine (Mucomyst Inahalation 10%) 100 mg Q6HR NEB 05/27/24 18:00 05/27/24 19:05 Isosorbide Mononitrate (Imdur Er Tablet) 30 mg DAILY PO 05/28/24 10:00 Topiramate (Topamax) 50 mg BID PO 05/27/24 22:00 Baclofen (Liorisal Tablet) 20 mg PRN PO 05/27/24 15:45 Hold Vital Signs Vital Signs Date Time Temp Pulse Resp B/P (MAP) Pulse Ox O2 Delivery O2 Flow Rate FiO2 05/27/24 19:15 79 18 99 05/27/24 19:05 Room Air 05/27/24 19:05 0 21 05/27/24 17:00 97.7 117/46 (69) 97.7 Physical Exam Gen.: Patient lying in bed in no apparent distress. On supplemental oxygen. Head: Normocephalic, atraumatic. Eyes: EOMI/PERRLA. Ears: Normal hearing. Normal anatomy. Neck/trachea: Trachea midline, supple. Nose: Normal external anatomy. Mouth: Moist mucous membranes. Chest: Decreased air entry bilaterally. No wheezing or rhonchi. Cardiovascular: Positive S1, positive S2. Regular rate and rhythm. Abdomen: Positive bowel sounds in all 4 quadrants. Soft, non-tender, non- distended. : Deferred. Rectal: Deferred. Skin: Warm, dry. Intact. Extremities: 2+ radial pulses bilaterally. No lower extremity edema. Neuro: Awake, alert, oriented x3. No gross motor or sensory deficits. Cranial nerves II through XII intact. Gait not assessed. Labs/Diagnostic Data Labs Test 05/27/24 20:10 05/27/24 04:41 05/27/24 00:20 05/26/24 14:29 Range/Units White Blood Count 8.1 4.4-10.8 10^3/uL Red Blood Count 2.93 L 4.0-5.20 10^6/uL Hemoglobin 9.2 L 12.2-16.2 g/dL Hematocrit 27.9 #L 36.0-46.0 % Mean Corpuscular Volume 95.3 80.0-100.0 fL Mean Corpuscular Hemoglobin 31.4 28.0-32.0 pg Mean Corpuscular Hemoglobin Concent 33.0 32.0-36.0 g/dL Red Cell Distribution Width 15.0 H 11.8-14.3 % Platelet Count 210 140-450 10^3/uL Mean Platelet Volume 7.1 6.9-10.8 fL Neutrophils (%) (Auto) 65.0 37.0-80.0 % Lymphocytes (%) (Auto) 15.4 10.0-50.0 % Monocytes (%) (Auto) 15.4 H 0.0-12.0 % Eosinophils (%) (Auto) 3.7 0.0-7.0 % Basophils (%) (Auto) 0.5 0.0-2.0 % Neutrophils # (Auto) 5.3 1.6-8.6 10 ^3/uL Lymphocytes # (Auto) 1.3 0.4-5.4 10 ^3/uL Monocytes # (Auto) 1.3 0-1.3 10 ^3/uL Eosinophils # (Auto) 0.3 0-0.8 10 ^3/uL Basophils # (Auto) 0 0-0.2 10 ^3/uL Nucleated Red Blood Cells 0.1 % Sodium Level 138 136-145 mmol/L Potassium Level 3.2 L 3.5-5.1 mmol/L Chloride Level 107 98-107 mmol/L Carbon Dioxide Level 18 L 20-31 mmol/L Anion Gap 13 5-15 Blood Urea Nitrogen 37 H 9-23 mg/dL Creatinine 1.16 H 0.550-1.02 mg/dL Glomerular Filtration Rate Calc 49 >90 mL/min BUN/Creatinine Ratio 31.9 H 10.0-20.0 Serum Glucose 84 74-106 mg/dL Calcium Level 9.7 8.7-10.4 mg/dL Phosphorus Level 3.7 2.4-5.1 mg/dL Magnesium Level 2.0 1.6-2.6 mg/dL Total Bilirubin 0.3 0.2-1.0 mg/dL Aspartate Amino Transferase (AST) 18 13-40 U/L Alanine Aminotransferase (ALT) 26 7-40 U/L Alkaline Phosphatase 112 46-116 U/L Total Protein 6.5 5.7-8.2 g/dL Albumin 3.4 3.2-4.8 g/dL Vitamin B12 Level 826 211-911 pg/mL Thyroid Stimulating Hormone (TSH) 0.72 0.55-4.78 uIU/mL Influenza Type A Antigen Negative Negative Influenza Type B Antigen Negative Negative SARS-CoV-2 Antigen (Rapid) Negative NEGATIVE Troponin I High Sensitivity 6 </=34 ng/L Test 05/26/24 13:23 Range/Units Lactic Acid Level 0.8 0.4-2.0 mmol/L B-Type Natriuretic Peptide 170.27 0-100 pg/mL Assessment Impression: AE COPD Acute hypoxic respiratory failure Wheezing Obesity Plan: Supplemental oxygen 2 LPM NC Titrate to keep O2 sats above 92%. Taper O2 as tolerated. Continue bronchodilators/Pulmicort. Mucomyst IV steroids Monitor renal function. Monitor electrolytes. Supplement as necessary. Monitor ins and outs. Diet and lifestyle modifications for weight reduction Obesity - complicates all care DVT prophylaxis. Prognosis: Poor given patient's multiple co-morbidities. Rest of plan per hospitalist and other consultants. Thank you Dr. Beth Dey MD, for allowing me to participate in this patient's care. Further recommendations will depend on the patient's clinical course. Please do not hesitate to contact me if you have any questions or concerns. This medical document was created using an electronic medical record system with [employer] system. Although these documentations are being carefully reviewed, there may still be some phonetic and typographical changes. The errors are purely typographical, due to imperfection on the software [employer], and do not reflect any compromise in the patient's medical care. Plan discussed with: Patient, Other (ELLIOT Espinoza, Tiburcio) JAIDEN LANDON MD May 27, 2024 20:33
[2024-05-27 20:48] LABS: Amphetamine Screen, Urine Neg (NEGATIVE); Barbiturate Scree,Urine Pos (NEGATIVE); Urine Bacteria FEW /hpf (None Seen); Urine Blood Negative /uL (Negative); Urine Clarity Turbid (Clear); Urine Color Yellow (Yellow); Urine Mucus FEW (None Seen); Urine Protein, UAD TRACE (Negative); Urine Specific Gravity 1.019 (1.001-1.035); Urine Urobilinogen Normal (Negative); Urine WBC 223 /hpf (0 - 5); Urine WBC Clumps PRESENT /hpf (None Seen); Urine pH 5.5 (5.0-9.0)
[2024-05-27 20:49] LABS: Benzodiazephine Screen, Urine Neg (NEGATIVE); Cannabinoid Screen, Urine Neg (NEGATIVE); Cocaine Screen, Urine Neg (NEGATIVE); Opiate Scree,Urine Neg (NEGATIVE); Phencyclidine Screen, Urine Neg (NEGATIVE)
[2024-05-27] MEDS: TOPIRAMATE 25 MG TAB PO SCH (21:37)
--- NOTE | 2024-05-27 22:01 | DVHSR ---
APPROVED REPORT EXAM: Two-dimensional and M-mode echocardiogram with Doppler and color Doppler. Blood Pressure: 145/72 mmHg INDICATION History of CHF RISK FACTORS Height: 62, Weight: 166 DIMENSIONS LVDd5.4 (3.8-5.7cm)LA (2D)5.5 (1.9-4.0cm)Aortic Root3.1 (2.0-3.7cm) LVDs3.6 (2.5-4.0cm)LA (MM) (1.9-4.0cm)Aortic Cusp Exc1.6 (1.5-2.0cm) EF (%) 62.0 (55-70%)Rt. Atrium (1.9-4.0cm)Asc. Aorta cm IVSd1.3 (0.7-1.1cm)RV (D) (1.8-2.4cm) PWd1.4 (0.7-1.1cm) Mitral Valve MitralMitral Stenosis E wave0.99m/sMV Mean GR.mmHg A wave1.09m/sMV Peak GR.129mmHg E/A ratio0.92D MVAcm2 DECEL [id number] 1/2 [id number] IVRTmsDop MVA2.79cm2 Aortic Valve Aortic ValveAortic Stenosis V11.41m/Ara Mean GR.9mmHg V22.05m/Ara Peak GR.17mmHg LVOT Diameter1.9 (1.8-2.4cm)Doppler AVA1.95cm2 Pulmonic Valve V21.04m/s Other Information Technically limited study due to body habitus. Conclusion Normal left ventricular size and dimension. Normal left ventricular systolic function with estimated ejection fraction 55%. There is a grade 1 diastolic dysfunction. Normal right ventricular size and dimension. Normal right ventricular systolic function. Normal biatrial size and dimension. Normal aortic valve structure and function. Normal mitral valve structure and function. Normal tricuspid valve structure and function. The pulmonary valve is grossly normal. No pericardial effusion.
[2024-05-28] VITALS (11 sets, daily range): BP systolic 127–155; BP diastolic 38–69; PULSE 62–79; RESP 16–20; TEMP 97.4–97.8; O2SAT 94–100
[2024-05-28 05:45] LABS: Potassium 4.8 mmol/L (3.5-5.1); Sodium 139 mmol/L (136-145)
[2024-05-28 05:46] LABS: Anion Gap 10 (5-15); Calcium 9.4 mg/dL (8.7-10.4)
[2024-05-28 05:51] LABS: BUN/Creatinine Ratio 31.2 (10.0-20.0)
[2024-05-28] MEDS: hydrALAZINE HCL 20 MG/ML VL IV PRN (05:58)
[2024-05-28 06:42] LABS: Blood Urea Nitrogen 39 mg/dL (9-23); Carbon Dioxide 19 mmol/L (20-31); Chloride 110 mmol/L (98-107); Glucose 159 mg/dL (74-106)
[2024-05-28 08:25] LABS: Basophils # (auto) 0 10 ^3/uL (0-0.2); Basophils % (auto) 0.1 % (0.0-2.0); Eosinophils # (auto) 0 10 ^3/uL (0-0.8); Hematocrit 29.6 % (36.0-46.0); Hemoglobin 9.9 g/dL (12.2-16.2); Lymphocytes # (auto) 0.7 10 ^3/uL (0.4-5.4); Lymphocytes % (auto) 9.6 % (10.0-50.0); Mean Corpuscular Hemoglobin 31.6 pg (28.0-32.0); Mean Corpuscular Hgb Conc. 33.3 g/dL (32.0-36.0); Monocytes # (auto) 0.5 10 ^3/uL (0-1.3); Neutrophils # (auto) 5.9 10 ^3/uL (1.6-8.6); Neutrophils % (auto) 83.3 % (37.0-80.0); Nucleated Red Blood Cells % 0.1 %; Platelet Count (auto) 298 10^3/uL (140-450); Red Blood Cells 3.12 10^6/uL (4.0-5.20); Red Cell Distribution Width 14.7 % (11.8-14.3); White Blood Cell 7.1 10^3/uL (4.4-10.8)
[2024-05-28] MEDS: ISOSORBIDE MONONITRATE ER 60 MG TAB PO SCH (10:00)
[2024-05-28] MEDS ORDERED: ISOSORBIDE MONONITRATE ER 60 MG TAB PO SCH (10:00)
[2024-05-28] MEDS ORDERED: DOXY150C6 PO (11:34)
[2024-05-28] MEDS ORDERED: ACET-1882 PO (11:34)
[2024-05-28] MEDS ORDERED: ACE104IS NEB (11:34)
[2024-05-28] MEDS ORDERED: PRED20TA2 PO (11:34)
[2024-05-28] MEDS ORDERED: DEXT1SUS PO (14:03)
--- NOTE | 2024-05-28 14:03 | DVHDSRES ---
Discharge Summary Date of Admission Resident Creating Document: FREDIS MARTINEZ RESIDENT May 26, 2024 at 19:40 Date of Discharge: May 28, 2024 Admitting Diagnosis Shortness of breaths Labs/Diagnostic Data: Laboratory Results Test 05/28/24 07:50 05/28/24 05:05 05/27/24 20:10 05/27/24 04:41 White Blood Count 7.1 10^3/uL (4.4-10.8) Red Blood Count 3.12 10^6/uL (4.0-5.20) Hemoglobin 9.9 g/dL (12.2-16.2) Hematocrit 29.6 % (36.0-46.0) Mean Corpuscular Volume 95.0 fL (80.0-100.0) Mean Corpuscular Hemoglobin 31.6 pg (28.0-32.0) Mean Corpuscular Hemoglobin Concent 33.3 g/dL (32.0-36.0) Red Cell Distribution Width 14.7 % (11.8-14.3) Platelet Count 298 10^3/uL (140-450) Mean Platelet Volume 7.1 fL (6.9-10.8) Neutrophils (%) (Auto) 83.3 % (37.0-80.0) Lymphocytes (%) (Auto) 9.6 % (10.0-50.0) Monocytes (%) (Auto) 7.0 % (0.0-12.0) Eosinophils (%) (Auto) 0.0 % (0.0-7.0) Basophils (%) (Auto) 0.1 % (0.0-2.0) Neutrophils # (Auto) 5.9 10 ^3/uL (1.6-8.6) Lymphocytes # (Auto) 0.7 10 ^3/uL (0.4-5.4) Monocytes # (Auto) 0.5 10 ^3/uL (0-1.3) Eosinophils # (Auto) 0 10 ^3/uL (0-0.8) Basophils # (Auto) 0 10 ^3/uL (0-0.2) Nucleated Red Blood Cells 0.1 % Sodium Level 139 mmol/L (136-145) Potassium Level 4.8 mmol/L (3.5-5.1) Chloride Level 110 mmol/L (98-107) Carbon Dioxide Level 19 mmol/L (20-31) Anion Gap 10 (5-15) Blood Urea Nitrogen 39 mg/dL (9-23) Creatinine 1.25 mg/dL (0.550-1.02) Glomerular Filtration Rate Calc 44 mL/min (>90) BUN/Creatinine Ratio 31.2 (10.0-20.0) Serum Glucose 159 mg/dL (74-106) Calcium Level 9.4 mg/dL (8.7-10.4) Urine Color Yellow (Yellow) Urine Clarity Turbid (Clear) Urine pH 5.5 (5.0-9.0) Urine Specific [place] 1.019 (1.001-1.035) Urine Protein Trace (Negative) Urine Ketones Negative (Negative) Urine Blood Negative /uL (Negative) Urine Nitrite Negative (Negative) Urine Bilirubin Negative (Negative) Urine Urobilinogen Normal mg/dL (Negative) Urine Leukocyte Esterase 3+ /uL (Negative) Urine RBC 9 /hpf (0 - 4) Urine WBC 223 /hpf (0 - 5) Urine WBC Clumps Present /hpf (None Seen) Urine Squamous Epithelial Cells Mod /hpf (<5) Urine Bacteria Few /hpf (None Seen) Urine Mucus Few (None Seen) Urine Glucose Normal mg/dL (Normal) Urine Opiates Screen Neg (NEGATIVE) Urine Fentanyl Screen Neg (NEGATIVE) Urine Barbiturates Screen Pos (NEGATIVE) Urine Phencyclidine Screen Neg (NEGATIVE) Urine Amphetamines Screen Neg (NEGATIVE) Urine Benzodiazepines Screen Neg (NEGATIVE) Urine Cocaine Screen Neg (NEGATIVE) Urine Cannabinoids Screen Neg (NEGATIVE) Phosphorus Level 3.7 mg/dL (2.4-5.1) Magnesium Level 2.0 mg/dL (1.6-2.6) Total Bilirubin 0.3 mg/dL (0.2-1.0) Aspartate Amino Transferase (AST) 18 U/L (13-40) Alanine Aminotransferase (ALT) 26 U/L (7-40) Alkaline Phosphatase 112 U/L (46-116) Total Protein 6.5 g/dL (5.7-8.2) Albumin 3.4 g/dL (3.2-4.8) Vitamin B12 Level 826 pg/mL (211-911) Vitamin D 25-Hydroxy 63.0 ng/mL (30.0-100) Thyroid Stimulating Hormone (TSH) 0.72 uIU/mL (0.55-4.78) Test 05/27/24 00:20 05/26/24 14:29 05/26/24 13:23 Influenza Type A Antigen Negative (Negative) Influenza Type B Antigen Negative (Negative) SARS-CoV-2 Antigen (Rapid) Negative (NEGATIVE) Troponin I High Sensitivity 6 ng/L (</=34) Lactic Acid Level 0.8 mmol/L (0.4-2.0) B-Type Natriuretic Peptide 170.27 pg/mL (0-100) Other Laboratory Tests 05/28/24 07:50 05/28/24 05:05 Brief Hx & Hospital Course: AMI DYE is a 78-year-old female with a PMH of asthma, hypertension, dyslipidemia, nonaffiliated arrhythmia, rheumatoid arthritis, ulcerative colitis, breast cancer, bone cancer, hypothyroidism, osteoporosis, chronic pain presented to the ED with the chief complaints of shortness of breaths since night. Patient reported she has been having occasional shortness of breath for fasting does associated with cough, headache. Patient initially thought that her asthma is getting worse, despite of using inhalers did not improved, but got aggravated, even with a mild exertion patient felt severe shortness of breath associated with wheezing but denies fever, chest pain, nausea, vomiting, chills and other associated symptoms. Patient reported no exposure to allergens or smoking or sick contacts or recent travel. Patient required hospital admission for further evaluation and management of acute respiratory distress. CXR showed no acute abnormality. Patient on 2-3 L oxygen NC, breathing comfortable and giving breathing treatments. Currently giving doxycycline and Solu-Medrol 40 mg IV. Supportive treatment and monitored continuously. Gradually weaned off from oxygen until patient is off from oxygen. echocardiogram showed normal LVEF with 55% with a grade 1 diastolic dysfunction. pulmonology cycle consultant evaluated the patient and advised to continue bronchodilators, Mucomyst and steroid. Patient condition was improved, hemodynamically stable and in condition to be discharged home with optimal medical treatment. Patient was advised about healthy lifestyle habits including diet and exercise and to follow up with PCP. Pt is lying on bed General Appearance: Alert, Oriented X3, Cooperative, Not in acute distress HEENT: Atraumatic, Mucous membranes moist/pink Respiratory: Minimal Wheezing in bilateral lower and mid lung castaneda Cardiovascular: Regular rate, Normal S1, Normal S2, No murmurs Abdominal: Active bowel sounds, Soft, no distention, no tenderness Extremities: 1+ edema, Normal pulses, No tenderness/swelling Skin: No Significant rash, except past surgical scars Neuro: Normal speech, sensorimotor deficits none Psych/Mental Status: Mental status NL, Mood NL Nurse was there as sharperone during examination Operations or Procedures Normal left ventricular size and dimension. Normal left ventricular systolic function with estimated ejection fraction 55%. There is a grade 1 diastolic dysfunction. Normal right ventricular size and dimension. Normal right ventricular systolic function. Condition at Discharge: Stable Final Diagnosis/Problems List # COPD exacerbation # asthma exacerbation # acute hypoxic respiratory failure due to above # Hypokalemia # JAKE likely VM # CHF not in exacerbation # rheumatoid arthritis # hypothyroidism Discharge Disposition: Home Discharge Instruct/Medications Diet: Consistent carbohydrate, Cardiac 2g Na,low cholest Diet comment: consistent carb cardiac diet Activity: No Restrictions, As Tolerated Follow Up/Referral: PCP Medications: per emr Discharge Statement: "Patient was advised to return to the ER or call 911 if any headaches, dizziness, shortness of breath, chest pain, abdominal pain, bleeding, fevers, or worsening of medical condition. Patient was counseled about treatment plan, medications, possible side effects, patientverbalized understanding. All questions were answered to the best of my ability. This discharge took greater then 30 minutes in planning, reviewing documentation, counseling the patient, and discussing with other team members." ASSESSMENT ASSESSMENT Assessment # COPD exacerbation # asthma exacerbation # acute hypoxic respiratory failure due to above Date of Service: May 28, 2024 Billing Provider: BERENICE HUMMEL MD Common Visit Codes: 20876-ISU/OBS DISCH DAY >30min FREDIS MARTINEZ RESIDENT May 28, 2024 14:03 BERENICE HUMMEL MD May 31, 2024 19:16
[2024-05-28] MEDS ORDERED: RESPKIT15 XX (14:44)
--- NOTE | 2024-05-28 21:01 | DVHPN2 ---
Progress Note - Dictate Date Seen: May 28, 2024 Medical Necessity Reason Pt with a Central, PICC or Fol: No Subjective Patient seen and examined at bedside. Breathing comfortably on room air. Overnight events reviewed. vital signs Vital Sign Date Time Temp Pulse Resp B/P (MAP) Pulse Ox O2 Delivery O2 Flow Rate FiO2 05/28/24 13:16 97.6 79 18 94 05/28/24 12:47 127/38 (67) 05/28/24 11:48 Room Air 0.0 05/28/24 11:48 21 Total Intake and Output 05/27/24 05/27/24 05/28/24 15:00 23:00 07:00 Intake Total 240 ml 450 ml Balance 240 ml 450 ml objective Gen.: Patient lying in bed in no apparent distress. Breathing on room air. Head: Normocephalic, atraumatic. Eyes: EOMI/PERRLA. Ears: Normal hearing. Normal anatomy. Neck/trachea: Trachea midline, supple. Nose: Normal external anatomy. Mouth: Moist mucous membranes. Chest: Decreased air entry bilaterally. No wheezing or rhonchi. Cardiovascular: Positive S1, positive S2. Regular rate and rhythm. Abdomen: Positive bowel sounds in all 4 quadrants. Soft, non-tender, non- distended. : Deferred. Rectal: Deferred. Skin: Warm, dry. Intact. Extremities: 2+ radial pulses bilaterally. No lower extremity edema. Neuro: Awake, alert, oriented x3. No gross motor or sensory deficits. Cranial nerves II through XII intact. Gait not assessed. laboratory and microbiology Laboratory Tests 05/28/24 07:50 05/28/24 05:05 Test 05/28/24 05:05 Range/Units Serum Glucose 159 H 74-106 mg/dL Assessment/Plan Impression: AE COPD Acute hypoxic respiratory failure Wheezing Obesity Events: Breathing on room air No respiratory distress. Continue antibiotics Incentive spirometry Antitussive for cough. Labs and imaging reviewed. Rest of plan as noted below. Plan: Supplemental oxygen PRN Titrate to keep O2 sats above 92%. Continue bronchodilators/Pulmicort. Mucomyst IV steroids Monitor renal function. Monitor electrolytes. Supplement as necessary. Monitor ins and outs. Diet and lifestyle modifications for weight reduction Obesity - complicates all care DVT prophylaxis. Prognosis: Poor given patient's multiple co-morbidities. Rest of plan per hospitalist and other consultants. Thank you Dr. Beth Dey MD, for allowing me to participate in this patient's care. Further recommendations will depend on the patient's clinical course. Please do not hesitate to contact me if you have any questions or concerns. This medical document was created using an electronic medical record system with [employer] dictation system. Although these documentations are being carefully reviewed, there may still be some phonetic and typographical changes. The errors are purely typographical, due to imperfection on the software program, and do not reflect any compromise in the patient's medical care. Plan discussed with: Patient, Other (ELLIOT Espinoza) JAIDEN LANDON MD May 28, 2024 21:01
== END 2024-05-28 15:15 | disposition home or self-care (01) | DRG 189 ==
LOC: ER 12:38 → EDBD 12:38 → TELE 19:40 → TELE-EAST 19:41
PROVIDERS: ADMIT Internal Medicine Geriatric Medicine; ATTEND Internal Medicine Geriatric Medicine
DX: J96.01 Acute respiratory failure with hypoxia (principal); N17.0 Acute kidney failure with tubular necrosis; J44.1 Chronic obstructive pulmonary disease with (acute) exacerbation; J45.901 Unspecified asthma with (acute) exacerbation; E66.9 Obesity, unspecified; I11.0 Hypertensive heart disease with heart failure; Z20.822 Contact with and (suspected) exposure to COVID-19; I50.9 Heart failure, unspecified; E87.6 Hypokalemia; M06.9 Rheumatoid arthritis, unspecified; E03.9 Hypothyroidism, unspecified; E78.5 Hyperlipidemia, unspecified; G89.29 Other chronic pain; M81.0 Age-related osteoporosis without current pathological fracture; I48.91 Unspecified atrial fibrillation; Z85.3 Personal history of malignant neoplasm of breast; Z82.49 Family history of ischemic heart disease and other diseases of the circulatory system; Z80.1 Family history of malignant neoplasm of trachea, bronchus and lung; Z68.30 Body mass index [BMI] 30.0-30.9, adult
CPT/HCPCS: 36415; 71045; 80048; 80053; 80307; 81001; 82306; 82607; 83605; 83735; 83880; 84100; 84443; 84484; 85025; 87426; 87804; 93005; 93306; 94640; G0378; J3490

== ENCOUNTER 2024-08-12 12:03 | Day surgery (SDC) | payer MEDICARE, MEDICAID ==
[2024-08-07 10:46] LABS: Basophils # (auto) 0.1 10 ^3/uL (0-0.2); Basophils % (auto) 0.9 % (0.0-2.0); Eosinophils # (auto) 0.2 10 ^3/uL (0-0.8); Eosinophils % (auto) 2.9 % (0.0-7.0); Hemoglobin 10.1 g/dL (12.2-16.2); Lymphocytes # (auto) 1.8 10 ^3/uL (0.4-5.4); Mean Corpuscular Hemoglobin 31.6 pg (28.0-32.0); Mean Corpuscular Hgb Conc. 32.8 g/dL (32.0-36.0); Mean Corpuscular Volume 96.5 fL (80.0-100.0); Monocytes # (auto) 0.6 10 ^3/uL (0-1.3); Monocytes % (auto) 10.1 % (0.0-12.0); Neutrophils # (auto) 3.2 10 ^3/uL (1.6-8.6); Neutrophils % (auto) 55.1 % (37.0-80.0); Nucleated Red Blood Cells % 0.1 %; Platelet Count (auto) 207 10^3/uL (140-450); Red Blood Cells 3.21 10^6/uL (4.0-5.20); Red Cell Distribution Width 19.9 % (11.8-14.3); White Blood Cell 5.9 10^3/uL (4.4-10.8)
[2024-08-07 11:08] LABS: INR 1.03 (0.9-1.15); Partial Thromboplastin Time 24.1 SEC (24.5-34.5); Prothrombin Time 10.9 sec (9.3-11.8)
[2024-08-07 11:27] LABS: Urine Bacteria MOD /hpf (None Seen); Urine Blood Negative /uL (Negative); Urine Clarity Ex.Turbid (Clear); Urine Color Yellow (Yellow); Urine Mucus FEW (None Seen); Urine Protein, UAD 2+ (Negative); Urine Specific Gravity 1.026 (1.001-1.035); Urine Squamous Epithelial Cell FEW /hpf (<5); Urine Urobilinogen 2 mg/dL (Negative); Urine WBC 691 /HPF (0-5); Urine WBC Clumps PRESENT /hpf (None Seen)
[2024-08-07 11:43] LABS: Alanine Aminotransferase 13 U/L (7-40); Albumin 4.6 g/dL (3.2-4.8); Alkaline Phosphatase 87 U/L (46-116); Anion Gap 10 (5-15); Aspartate Aminotransferase 15 U/L (13-40); BUN/Creatinine Ratio 10.2 (10.0-20.0); Blood Urea Nitrogen 14 mg/dL (9-23); Calcium 10.2 mg/dL (8.7-10.4); Carbon Dioxide 21 mmol/L (20-31); Glucose 102 mg/dL (74-106); Potassium 4.1 mmol/L (3.5-5.1); Sodium 140 mmol/L (136-145); Total Protein 7.7 g/dL (5.7-8.2)
[2024-08-07 11:50] LABS: Bilirubin, Total 0.3 mg/dL (0.2-1.0); Chloride 109 mmol/L (98-107)
[~2024-08-12] VITALS: Ht 157.5 cm; Wt 68.9 kg
[~2024-08-12 12:03] MED LIST changes: +ACE104IS NEB; +ACET-1882 PO; -AZIT-74 PO; -BACL20TA PO; -CALCTAB50 OR; -DENO60SO SC; -DEX4T PO; -ESOM20CA PO; -FLUT230A2; +FURO40TA4 PO; -HYDR25TA5 GT; +INFL100I IV; +LIDO3CRE35 TOP; +MULTCAP7 OR; -NITR-87 PO; +NITR0.4S29 SL; +OMEP-448; +PRED20TA2 PO; +RESPKIT15 XX; +TOLT1CAP29 PO; +TRAM50TA2 PO
[2024-08-12] MEDS ORDERED: fentaNYL CITRATE 100 MCG/2 ML VL ONE (13:35)
[2024-08-12] MEDS ORDERED: PROPOFOL 10 MG/ML 20 ML IV ONE (13:51)
[2024-08-12 13:55] VITALS: TEMP 98.1; O2SAT 94
[2024-08-12 14:15] VITALS: BP 160/71; PULSE 85; RESP 17; O2SAT 94
--- NOTE | 2024-08-12 15:30 | DVHOP2 ---
Operative Report DATE OF OPERATION: 08/12/24 PROCEDURE: Colonoscopy with cold biopsy polypectomy. PREOPERATIVE INDICATION: The patient is a 79 -year-old female undergoing colonoscopy for evaluation of rectal prolapse hemorrhoids POSTOPERATIVE DIAGNOSES: 1. Patient had 2+ congested internal external hemorrhoids with grade 1 prolapse of the hemorrhoids 2. Patient had some inflammatory granulation tissue at the anorectum from which biopsies were obtained 3. There was a 2 mm benign-appearing rectal polyp that was seen and removed completely via cold biopsy forceps 4. Otherwise essentially completely normal colonoscopy examination up to the cecum and terminal ileum PROCEDURE PERFORMED BY: Janna Key M.D. SCOPE: Olympus videocolonoscope. ASA CLASS: 3. PREOPERATIVE MEDICATIONS: Mac Dr. Katerin low PROCEDURE IN DETAIL: After obtaining an informed consent, the patient was placed on left lateral decubitus position. She was then sedated with the above medications. A rectal examination was performed that was normal. The colonoscope was then passed through the anus into the rectosigmoid and through the descending, transverse, and ascending colon up to the cecum with visualization of the appendiceal orifice, base of the cecum and the ileocecal valve. The colonoscope was then withdrawn. The distal 5-10 cm of the terminal ileum were normal No masses or colitis were seen. There was no clear-cut diverticular disease. Patient had a 2 mm benign-appearing rectal polyp that was seen and removed by cold biopsy forceps On retroflexion and straight on view the patient had 2+ internal external hemorrhoids with grade 1 prolapse of the hemorrhoids There was some granulation tissue at the anorectum likely related to recurrent prolapse that was friable and biopsies were obtained The patient tolerated the procedure well without difficulty. WITHDRAWAL TIME: 6 minutes QUALITY OF THE PREP: [place] Bowel Prep score: 9. COMPLICATIONS : None SPECIMENS: Anorectal granulation tissue biopsy Rectal polyp DISPOSITION: Stable D/C to home PLAN: 1. Repeat colonoscopy base on biopsy result likely in five years 2. Resume GI soft diet advance as tolerated 3. Local anorectal hemorrhoidal care 4. Proceed with hemorrhoidectomy 5. Outpatient follow up with me in 2-4 weeks to review results and discuss further management JANNA KEY MD Aug 12, 2024 15:30
== END 2024-08-12 14:30 | disposition home or self-care (01) ==
LOC: GI 12:03
PROVIDERS: ATTEND Internal Medicine Gastroenterology
DX: K62.3 Rectal prolapse (principal); K62.1 Rectal polyp; K64.4 Residual hemorrhoidal skin tags; K64.1 Second degree hemorrhoids; K62.89 Other specified diseases of anus and rectum; I11.0 Hypertensive heart disease with heart failure; I50.9 Heart failure, unspecified; J44.9 Chronic obstructive pulmonary disease, unspecified; E03.9 Hypothyroidism, unspecified; I42.9 Cardiomyopathy, unspecified; Z90.710 Acquired absence of both cervix and uterus; Z98.890 Other specified postprocedural states; Z79.899 Other long term (current) drug therapy; Z88.8 Allergy status to other drugs, medicaments and biological substances
CPT/HCPCS: 36415; 45380; 80053; 81001; 85025; 85610; 85730; 88305; 88342; J2704; J3010; J7030

== ENCOUNTER → 2024-08-27 | Outpatient (CLI) | payer MEDICARE, MEDICAID ==
[2024-08-27 11:11] LABS: Urine Bacteria MANY /hpf (None Seen); Urine Blood TRACE /uL (Negative); Urine Clarity Ex.Turbid (Clear); Urine Color Light-Orange (Yellow); Urine Mucus FEW (None Seen); Urine Protein, UAD 2+ (Negative); Urine Squamous Epithelial Cell FEW /hpf (<5); Urine Urobilinogen Normal (Negative); Urine WBC 1454 /HPF (0-5); Urine WBC Clumps PRESENT /hpf (None Seen)
== END | disposition home or self-care (01) ==
LOC: LAB 10:49
PROVIDERS: ATTEND Internal Medicine Gastroenterology
DX: N39.0 Urinary tract infection, site not specified (principal)
CPT/HCPCS: 81001; 87086

== ENCOUNTER 2024-08-31 19:50 | Inpatient (IN) | payer MEDICARE, MEDICAID ==
[~2024-08-31] VITALS: Ht 157.5 cm; Wt 67.2 kg
--- NOTE | 2024-08-31 20:03 | ECG ---
[facility] Test Date: 2024-08-31 Test Time: 19:54:08 Pat Name: AMI DYE Department: ed Room: 0278 Gender: F Division Superintendent: isamar : [id number] Requested By: EMERGENCY EMERGENCY Order Number: [id number] Reading MD: Gavin Dougherty Measurements Intervals [place] Rate: 87 P: 44 DE: 177 QRS: 25 QRSD: 97 T: 28 QT: 384 QTc: 462 Interpretive Statements Sinus rhythm Anteroseptal infarct, age indeterminate Electronically Signed On 09-05-2024 22:58:10 PDT by Gavin Dougherty Please click the below link to view image of tracing.
[2024-08-31 20:10] VITALS: PULSE 82; RESP 13; O2SAT 97
[2024-08-31 22:04] LABS: Basophils # (auto) 0 10 ^3/uL (0-0.2); Basophils % (auto) 0.1 % (0.0-2.0); Eosinophils # (auto) 0 10 ^3/uL (0-0.8); Eosinophils % (auto) 0.3 % (0.0-7.0); Hematocrit 28.6 % (36.0-46.0); Hemoglobin 9.8 g/dL (12.2-16.2); Lymphocytes % (auto) 9.4 % (10.0-50.0); Mean Corpuscular Hemoglobin 32.1 pg (28.0-32.0); Mean Corpuscular Hgb Conc. 34.2 g/dL (32.0-36.0); Mean Corpuscular Volume 93.8 fL (80.0-100.0); Monocytes # (auto) 1.2 10 ^3/uL (0-1.3); Monocytes % (auto) 11.5 % (0.0-12.0); Neutrophils % (auto) 78.7 % (37.0-80.0); Platelet Count (auto) 163 10^3/uL (140-450); Red Blood Cells 3.04 10^6/uL (4.0-5.20); Red Cell Distribution Width 16.7 % (11.8-14.3); White Blood Cell 10.2 10^3/uL (4.4-10.8)
[2024-08-31] MEDS: SODIUM CHLORIDE 0.9% 1,000 ML IV ONE (22:14)
[2024-08-31] MEDS: ACETAMINOPHEN 325 MG TAB PO ONE (22:14)
[2024-08-31] MEDS: ALPRAZolam 0.25 MG TAB PO ONE (22:14)
[2024-08-31 22:15] LABS: Alanine Aminotransferase 38 U/L (7-40); Albumin 3.9 g/dL (3.2-4.8); Alkaline Phosphatase 92 U/L (46-116); Anion Gap 10 (5-15); Calcium 9.4 mg/dL (8.7-10.4); Chloride 103 mmol/L (98-107); Glucose 95 mg/dL (74-106); Potassium 3.5 mmol/L (3.5-5.1); Total Protein 7.1 g/dL (5.7-8.2)
[2024-08-31 22:16] LABS: Aspartate Aminotransferase 64 U/L (13-40); Bilirubin, Total 0.3 mg/dL (0.2-1.0); Blood Urea Nitrogen 38 mg/dL (9-23); Carbon Dioxide 19 mmol/L (20-31); Sodium 132 mmol/L (136-145)
--- NOTE | 2024-08-31 22:45 | DVH ---
CT HEAD WITHOUT CONTRAST INDICATION: Fall, injury COMPARISON: None TECHNIQUE: CT of the head without intravenous contrast. RADIATION DOSE: CTDIvol: 55.7 mGy, DLP: 2385.95 mGy*cm FINDINGS: There is no evidence of intracranial hemorrhage, infarct, extra-axial collection, mass effect, midli ne shift, herniation or hydrocephalus. The ventricles, sulci and cisterns are normal. The chaparro-white differentiation is normal. Visualized paranasal sinuses and mastoid air cells are clear. Soft tissues and osseous structures are unremarkable. IMPRESSION: No hemorrhage or other intracranial abnormality.
--- NOTE | 2024-08-31 22:50 | DVH ---
EXAM: CT CERVICAL WITHOUT CONTRAST HISTORY: Fall, injury COMPARISON: None CTDIvol mGy, DLP mGy*cm. TECHNIQUE: Multiple axial CT images of the spine were obtained using bone algorithm. Axial and coron al reformatting was done. Bone and soft tissue windows were reviewed. FINDINGS: No prevertebral soft abnormality noted. Straightening of the normal cervical lordosis and minimal les s than 2 mm anterolisthesis of C6 on C7; the alignment is otherwise unremarkable. The cervical verteb ral bodies appear unremarkable with no evidence of fracture or dislocation. Visualized paraspinal sof t tissues are grossly unremarkable. Multilevel cervical spondylosis with mild spinal canal narrowing. IMPRESSION: No evidence of cervical spine fracture or dislocation.
--- NOTE | 2024-08-31 22:59 | DVH ---
EXAM: CT LS SPINE WO CONTRAST HISTORY: Fall, injury COMPARISON: None CTDIvol mGy, DLP mGy*cm. TECHNIQUE: Multiple axial CT images of the spine were obtained using bone algorithm. Axial and coron al reformatting was done. Bone and soft tissue windows were reviewed. FINDINGS: The alignment of the lumbar spine is with normal limits. Bones appear osteopenic. The heights of the lumbar vertebral bodies, T11 and T12 are normal with no evidence of a fracture. Visualized paraspinal soft tissues are grossly unremarkable. Multilevel lumbar spondylosis with [id number] spinal canal narrowing at L3-L4 and L4-L5. IMPRESSION: No evidence of fracture in the lumbar spine.
--- NOTE | 2024-08-31 23:10 | ED.PDOC ---
History of Present Illness HPI Comments 79-year-old female is brought in by ambulance for complaint of head, right shoulder, back, and bilateral knee pain status post mechanical fall, today. Patient is a poor historian endorses on injuring herself when she fell and landed face-first onto her bathroom tile floor, while attempting to get up and grab her walker after using the bathroom 2x days ago. She comments on recent having recent ailments of generalized weakness and raspy voice for the past several days prior to her incident and having a history of arthritis, asthma, HTN and hearing and walker aide use. She denies any LOC or sustaining any additional injuries then along with any vision or speech changes, numbness, tingling, fever, chills, or other associated symptoms at this time. Per [facility] medical record, patient has an additional reported PMH of asthma, hypertension, dyslipidemia, nonaffiliated arrhythmia, rheumatoid arthritis, ulcerative colitis, breast cancer, bone cancer, hypothyroidism, osteoporosis, and chronic pain. Chief Complaint: Fall Injury Time Seen by MD: 20:00 Primary Care Provider: none Reviewed Notes: Nurses Notes, Chronometer Assembler Notes, Medications, Allergies Allergies: Coded Allergies: Nalbuphine (Verified Allergy, Unknown, 02/26/24) Morphine (Verified Adverse Reaction, Mild, 02/26/24) PER PT MAY HALLUCINATE BUT IS ABLE TO TAKE MEDICATION Home Meds Active Scripts Respiratory Therapy Supplies (Nebulizer Kit/Tubing/Mout) Kit, APPLIC XX BID PRN, #1 For nebulizing Prov:GERRI BALDWIN RESIDENT 05/28/24 Prednisone (Prednisone) 20 Mg Tab, 20 MG PO DAILY for 4 Days, #4 MG Prov:GERRI BALDWIN RESIDENT 05/28/24 Acetylcysteine (Mucomyst) 400 Mg/4 Ml So, 100 MG NEB Q6HR for 10 Days, #60 ML Prov:GERRI BALDWIN 05/28/24 Acetaminophen (Acetaminophen) 325 Mg Tab, 650 MG PO Q6HP PRN for 10 Days, #80 TAB Prov:GERRI BALDWIN RESIDENT 05/28/24 Albuterol Sulfate (Albuterol Sulfate Hfa) 108 Mcg/Act Aer, 108 MCG IN Q6HPRN PRN, #1 AER Prov:ZARINA LING MD 06/02/23 Reported Medications Infliximab (Remicade) 100 Mg Inj, 100 MG IV, INJ 05/27/24 Nitroglycerin (NTROSTAT SUBLINGUAL) 0.4 Mg Sl, 0.4 MG SL PRN, TAB *MAY REPEAT EVERY 5 MINUTES X 3 TOTAL IF NO RELIEF, INITIATE ANALGESIC THERAPY. NOTIFY PHYSICIAN *Do not crush. 05/27/24 Multiple Vitamins W/ Minerals (Eye Vitamins) Cap, 1 OR, CAP 05/27/24 Furosemide (Furosemide) 40 Mg Tab, 1 TAB PO DAILY, #30 TAB 5 Refills 05/27/24 Tolterodine Tartrate (Tolterodine Tartrate ER) 4 Mg Cap, 1 CAP PO DAILY 05/27/24 Lidocaine HCl (Lidocaine Hydrochloride) 3 % Cre, TOP PRN for NUMBING 05/27/24 Tramadol Hcl (Tramadol Hcl) 50 Mg Tab, 1 TAB PO DAILYPRN PRN for PAIN SCALE 7 THRU 10 05/27/24 Omeprazole (Omeprazole Dr) 40 Mg Cap 05/27/24 Aspirin (Aspirin Low Dose) 81 Mg Chw, 81 MG PO, TAB.CHEW 05/28/23 Celecoxib (Celecoxib) 200 Mg Cap, 1 CAP PO DAILY 05/28/23 Mirabegron Base (MYRBETRIQ) 50 Mg Tab, 1 TAB PO DAILY 05/28/23 Levothyroxine Sodium (Levothyroxine Sodium) 88 Mcg Tab, 1 TAB PO DAILY 05/28/23 Losartan Potassium (Losartan Potassium) 100 Mg Tab, 1 TAB PO DAILY 05/28/23 Pravastatin Sodium (PRAVACHOL TABLET) 20 Mg Tb, 1 TAB PO DAILY 05/28/23 Sulfasalazine (Azulfidine) 500 Mg Tb, 2 TAB PO BID 05/28/23 Isosorbide Mononitrate (Isosorbide Mononitrate Er) 30 Mg Tab, 1 TAB PO DAILY 05/28/23 Primidone (MYSOLINE TABLET) 50 Mg Tb, 1 TAB PO BID 05/28/23 Labetalol HCl (Labetalol HCl) 200 Mg Tab, 2 TAB PO BID 05/28/23 Clonidine Hydrochloride (Clonidine Hcl) 0.1 Mg Tab, 1 TAB PO BID 05/28/23 Topiramate (Topiramate) 50 Mg Tab, 1 TAB PO BID 05/28/23 Information Source: Patient, Emergency Med Personnel, [facility] Medical Record Mode of Arrival: EMS Severity: Moderate Timing: Hours Review of Systems: REVIEW OF SYSTEMS: No fever, no chills, or fatigue HEENT: No sore throat, no earache, no congestion, no neck pain. Cardiac: No chest pain. No palpitations. Lungs: No shortness of breath, no cough. GI: No nausea, no vomiting, no diarrhea, no constipation, no abdominal pain : No dysuria, frequency, or urgency. No hematuria. Musculoskeletal: Right shoulder, back, and bilateral knee pain , no joint swelling, no extremity edema. Skin: No rash, no itching. Neuro: Headache, no dizziness, no weakness Vital Signs Vital Signs Date Time Temp Pulse Resp B/P (MAP) Pulse Ox O2 Delivery O2 Flow Rate FiO2 09/01/24 03:00 92 14 112/58 (76) 96 08/31/24 20:10 Room Air* 0 21 08/31/24 20:10 98.9 Physical Exam General: Awake, alert and oriented. No acute distress. Skin: Skin in warm, dry and intact. Appropriate color for ethnicity. HEENT: The head is normocephalic and atraumatic. Conjunctivae are clear without exudates or hemorrhage. Sclera is non-icteric. EOM are intact. No signs of nystagmus. Eyelids are normal in appearance without swelling or lesions. Oral mucosa is pink and moist Neck: The neck is supple with normal range of motion. No JVD. Cardiac: Heart rate and rhythm are normal. No murmurs, gallops, or rubs are auscultated. Respiratory: No signs of respiratory distress. Lung sounds are clear in all lobes bilaterally without rales, rhonchi, or wheezes. Abdominal: Abdomen is soft, non-tender without distention. Bowel sounds are present and normoactive in all four quadrants. Musculoskeletal: Lumbar spine tenderness Extremities: Right-shoulder tenderness to palpation. Decreased ROM to left shoulder. Upper and lower extremities are atraumatic in appearance without deformity or edema. Neurological: The patient is awake, alert and oriented to person, place, and time with normal speech. Speech is clear. There is no facial asymmetry. Coarse tremors Psychiatric: Appropriate mood and affect. Good judgement and insight. No visual or auditory hallucinations. Past Medical History PAST MEDICAL HISTORY: AFIB, Asthma, CHF, COPD, HTN, Thyroid Past Medical History (Other): PMH of asthma, hypertension, dyslipidemia, nonaffiliated arrhythmia, rheumatoid arthritis, ulcerative colitis, breast cancer, bone cancer, hypothyroidism, osteoporosis, chronic pain Surgical History: Denies all surgeries IT PROGRAM MANAGER History: Denies all IT PROGRAM MANAGER Hx Family History Family History: Unknown Social History Smoker: Non-Smoker Alcohol: Denies ETOH Use Drugs: Denies Drug Use Lives In: Home Was a procedure done? Was a procedure done?: No EKG EKG : Pulse Rate (adult): 87 [place]: Normal Cardiac Rhythm: NSR Block: None Hypertrophy: None ST: Normal Differential Dx Considerations may include: DDX includes MSK trauma, facial fractures, ICH or traumatic SAH, C-spine injury, other X-Ray, Labs, Meds, VS Vital Signs Date Time Temp Pulse Resp B/P (MAP) Pulse Ox O2 Delivery O2 Flow Rate FiO2 09/01/24 03:00 92 14 112/58 (76) 96 09/01/24 02:00 88 17 115/63 (80) 94 09/01/24 01:00 84 21 105/40 (61) 93 09/01/24 00:00 85 09/01/24 00:00 85 22 104/42 (62) 93 08/31/24 23:10 87 08/31/24 22:00 87 13 124/44 (70) 99 08/31/24 21:00 84 22 122/58 (79) 95 08/31/24 20:10 82 13 97 Room Air* 0 21 08/31/24 20:10 98.9 86 18 146/61 (89) 95 08/31/24 20:10 98.4 82 13 107/49 (68) 97 98.4 08/31/24 19:54 87 Lab Test 08/31/24 22:53 08/31/24 21:43 Range/Units Influenza Type A Antigen Negative Negative Influenza Type B Antigen Negative Negative SARS-CoV-2 Antigen (Rapid) Negative NEGATIVE White Blood Count 10.2 4.4-10.8 10^3/uL Red Blood Count 3.04 L 4.0-5.20 10^6/uL Hemoglobin 9.8 L 12.2-16.2 g/dL Hematocrit 28.6 L 36.0-46.0 % Mean Corpuscular Volume 93.8 80.0-100.0 fL Mean Corpuscular Hemoglobin 32.1 H 28.0-32.0 pg Mean Corpuscular Hemoglobin Concent 34.2 32.0-36.0 g/dL Red Cell Distribution Width 16.7 H 11.8-14.3 % Platelet Count 163 140-450 10^3/uL Mean Platelet Volume 7.2 6.9-10.8 fL Neutrophils (%) (Auto) 78.7 37.0-80.0 % Lymphocytes (%) (Auto) 9.4 L 10.0-50.0 % Monocytes (%) (Auto) 11.5 0.0-12.0 % Eosinophils (%) (Auto) 0.3 0.0-7.0 % Basophils (%) (Auto) 0.1 0.0-2.0 % Neutrophils # (Auto) 8.0 1.6-8.6 10 ^3/uL Lymphocytes # (Auto) 1.0 0.4-5.4 10 ^3/uL Monocytes # (Auto) 1.2 0-1.3 10 ^3/uL Eosinophils # (Auto) 0 0-0.8 10 ^3/uL Basophils # (Auto) 0 0-0.2 10 ^3/uL Nucleated Red Blood Cells 0.0 % Sodium Level 132 L 136-145 mmol/L Potassium Level 3.5 3.5-5.1 mmol/L Chloride Level 103 98-107 mmol/L Carbon Dioxide Level 19 L 20-31 mmol/L Anion Gap 10 5-15 Blood Urea Nitrogen 38 H 9-23 mg/dL Creatinine 1.73 H 0.550-1.02 mg/dL Glomerular Filtration Rate Calc 30 >90 mL/min BUN/Creatinine Ratio 22.0 H 10.0-20.0 Serum Glucose 95 74-106 mg/dL Calcium Level 9.4 8.7-10.4 mg/dL Total Bilirubin 0.3 0.2-1.0 mg/dL Aspartate Amino Transferase (AST) 64 H 13-40 U/L Alanine Aminotransferase (ALT) 38 7-40 U/L Alkaline Phosphatase 92 46-116 U/L Troponin I High Sensitivity 14 </=34 ng/L Total Protein 7.1 5.7-8.2 g/dL Albumin 3.9 3.2-4.8 g/dL Thyroid Stimulating Hormone (TSH) 0.20 L 0.55-4.78 uIU/mL Current Medications Medications (Trade) Dose Ordered Sig/Pat Route Start Time Stop Time Status Last Admin Sodium Chloride 1,000 ml @ 1,000 mls/hr Q1H ONCE IV 08/31/24 21:45 08/31/24 22:44 DC 08/31/24 22:14 Acetaminophen (Tylenol Tablet) 650 mg ONCE ONCE PO 08/31/24 21:45 08/31/24 21:46 DC 08/31/24 22:14 Alprazolam (Xanax Tablet) 0.25 mg ONCE ONCE PO 08/31/24 21:45 08/31/24 21:46 DC 08/31/24 22:14 Time of 1ST Reevaluation: 20:30 Reevaluation 1ST: Unchanged Patient Education/Counseling: Diagnosis, Treatment, Other (Need for admission) Family Education/Counseling: No Family Present Departure 1 Departure Time of Disposition: 00:22 Impression: Primary Impression: Generalized weakness Additional Impressions: Hyponatremia Fall Disposition: ADMITTED INPATIENT Condition: Stable Comments 79-year-old female who presents to the emergency department after fall injury, generalized weakness, difficulty ambulating using her normal walker. Workup reveals that patient has hyponatremia with a sodium of 132. Likely hypovolemic given elevated BUN and creatinine. Initial IV fluid bolus was administered. Imaging shows no acute fracture or other significant injury. Patient admitted for further treatment, evaluation and monitoring. Extensive evaluation was performed in attempt to identify or rule out: (See differential diagnosis section) The following tests were ordered, and results were reviewed by me: (See diagnostic results section) The following test were independently interpreted by me: N/A I reviewed and agreed with the following test results read by other providers: N/A I reviewed the following notes from the pt's past medical encounters: June 13, 2024 encounter for acute exacerbation of chronic obstructive pulmonary disease Additional information was gathered from interviewing the following independent historians: EMS personnel Discussion of management or test interpretation with external physician/other qualified health resident care aid: N/A Addressed an acute or chronic illness that poses a threat to life or bodily function: Hyponatremia Decision regarding hospitalization or escalation of hospital level of care: Risk and benefits of admission for further treatment of patient's condition was considered. Due to patient's current clinical condition, high risk of decline and poor outcome if discharged and need for further inpatient management and monitoring, patient will be admitted to the hospital. Drug therapy requiring intensive monitoring for toxicity: N/A Parenteral controlled substances: N/A Decision regarding elective major surgery with identified patient or procedure risk factors: N/A Decision regarding emergency major surgery: N/A Decision not to resuscitate or to de-escalate care because of poor prognosis: N/A Diagnosis or treatment significantly limited by social determinants of health: N/A Critical Care Note Critical Care Time?: No Stability Stability form required: No Heart Score Heart Score: Heart Score Response (Comments) Value History N/A 0 EKG N/A 0 Age N/A 0 Risk Factors N/A 0 Troponin N/A 0 Total 0 I personally scribed for SOURAV GONZALES MD ([email or web address]) on 08/31/24 at 23:10. Electronically submitted by Graeme Guidry ([email or web address]). SOURAV GONZALES MD Aug 31, 2024 23:10
[2024-08-31 23:18] LABS: COVID19 ANTIGEN SOFIA FIA NEGATIVE (NEGATIVE); Rapid Influenza A Negative (Negative); Rapid Influenza B Negative (Negative)
[2024-09-01] MEDS: ACETAMINOPHEN 325 MG TAB PO ONE (04:08)
[2024-09-01 08:20] VITALS: PULSE 90; RESP 20; O2SAT 97
[2024-09-01 09:13] LABS: Urine Bacteria FEW /hpf (None Seen); Urine Blood 2+ /uL (Negative); Urine Protein, UAD 1+ (Negative); Urine Squamous Epithelial Cell None Seen /hpf (<5); Urine Urobilinogen Normal (Negative); Urine WBC 3327 /HPF (0-5); Urine WBC Clumps PRESENT /hpf (None Seen)
[2024-09-01 09:14] LABS: Urine Clarity Cloudy (Clear); Urine Color Yellow (Yellow)
--- NOTE | 2024-09-01 09:56 | [facility] ---
CT ABDOMEN AND PELVIS WITHOUT CONTRAST CLINICAL HISTORY: left abdominal pain TECHNIQUE: Multiple contiguous axial images of the abdomen and pelvis without intravenous contrast. T he images were reformatted degenerate coronal and sagittal reconstructions. All CT scans at this medical facility are performed using dose modulation techniques as appropriate t o a performed exam including the following:Automated exposure control was utilized; adjustment of the MA and/or KV according to patient size; and use of iterative reconstruction technique. Radiation Dose Information: CT Dose: CTDI volume is 12 mGy. Dose-length product is 621 mGy*cm Comparison: None FINDINGS: Evaluation of the abdomen and pelvis is limited without intravenous contrast. There is a 7 mm calculus in the proximal left ureter with moderate left hydroureteronephrosis. There is a 2 mm calculus in the lower pole of the right kidney. There is no right renal hydronephrosis. The re is no right ureteral calculus or hydroureter. Gallbladder is surgically absent. The liver, gallbladder, pancreas, adrenal glands, and spleen cheryl ear within normal limits. There is no gross evidence of abdominal lymphadenopathy. There is no free fluid or free air. The stomach grossly appears unremarkable. The small and large bowel loops demonstrate normal caliber . There are multiple diverticula in the distal colon without evidence of acute diverticulitis. The abdominal aorta and IVC appear within normal limits. There is right total hip arthroplasty with moderate amount of streak artifact limiting evaluation of the pelvis. Visualized bladder grossly appears unremarkable for degree of distention. The pelvic orga n is not adequately visualized.. There is no gross evidence of a pelvic mass. There is no obvious fr ee fluid collection. There is scarring versus atelectasis in the left lung base. There is no acute osseous abnormality. IMPRESSION: 1. 7 mm calculus in the proximal left ureter with moderate left hydroureteronephrosis. 2. 2 mm nonobstructive right lower pole renal calculus. 3. Distal colon diverticulosis. HS:Y
[2024-09-01] MEDS ORDERED: ONDANSETRON HCL 4 MG/2 ML VIAL IV PRN (10:15)
--- NOTE | 2024-09-01 10:31 | DVHHP2 ---
History of Present Illness Reason for Visit: Left side abdominal pain History of Present Illness Jazmín Villalba is a 79-year-old female with past medical history of CHF, asthma, hypertension, A-fib, COPD, hyperlipidemia, and hypothyroidism, who came to the hospital S/P fall. Patient states she usually lives with her caregiver, however her caregiver is out of town for a few days and is staying with her brother. She states she got up to go to the bathroom without asking for help and fell landing on her left side prompting her to come to the ER. While in the ER she complained of left sided pain to her shoulder, knee, head, and abdomen. On assessment the greatest pain that she complains of is her left side of abdomen that radiates to left flank. CT of abdomen was ordered and showed bilateral renal calculi, with obstruction in her left ureter causing hydroureteronephrosis. Patient complains of difficulty urinating, and straining to urinate. Cardiovascular: CHF, HTN, hyperipidemia Pulmonary: Asthma, COPD Musculoskeletal: Osteoarthritis Endocrine: Hypothyroidism Past Surgical History: Mastectomy (left), Total hip replacement (right x 3), Tonsillectomy Smoke: No ALCOHOL: none Drugs: None Lives: Other (Caregiver) Domestic Violence: Neg Review of Systems Constitutional: No: Fever, Chills, Sweats, Weakness, Malaise, Other Eyes: No: Pain, Vision change, Conjunctivae inflammation, Eyelid inflammation, Other, Redness ENT: No: Ear pain, Ear discharge, Nose pain, Nose discharge, Nose congestion, Mouth pain, Mouth swelling, Throat pain, Throat swelling, Other Respiratory: No: Cough, Dry, Shortness of breath, SOB with excertion, Wheezing, Hemoptysis, Pleuritic Pain, Sputum, Wheezing, Other Cardiovascular: No: Chest Pain, Palpitations, Orthopnea, Paroxysmal Noc. Dyspnea, Edema, Lt Headedness, Other Gastrointestinal: Abdominal Pain; No: Nausea, Vomiting, Diarrhea, Constipation, Melena, Hematochezia, Other Genitourinary: Dysuria; No Frequency, No Incontinence, No Hematuria, No Retention; Other (Difficulty urinating) Musculoskeletal: No: other, neck pain, shoulder pain, arm pain, back pain, hand pain, leg pain, foot pain Skin: No: Rash, Lesions, Jaundice, Bruising, Other Neurological: No: Weakness, Numbness, Incoordination, Change in speech, Confusion, Seizures, Other Allergies: Coded Allergies: Nalbuphine (Verified Allergy, Unknown, 02/26/24) Morphine (Verified Adverse Reaction, Mild, 02/26/24) PER PT MAY HALLUCINATE BUT IS ABLE TO TAKE MEDICATION Exam Vital Signs Vital Signs Date Time Temp Pulse Resp B/P (MAP) Pulse Ox O2 Delivery O2 Flow Rate FiO2 09/01/24 08:20 90 20 97 Room Air* 0 21 09/01/24 08:00 98.2 136/57 (83) 98.2 General Appearance: Alert, Oriented X3, Cooperative, moderate distress HEENT: Atraumatic Respiratory: Clear to auscultation, Normal air movement Cardiovascular: Regular rate, Normal S1, Normal S2, No murmurs Abdominal: Normal bowel sounds, Soft, Other (C/O abdominal pain LUQ) Extremities: No clubbing Labs/Xrays Labs Test 09/01/24 08:33 08/31/24 22:53 08/31/24 21:43 Range/Units Urine Color Yellow Yellow Urine Clarity Cloudy H Clear Urine pH 6.0 5.0-9.0 Urine Specific [place] 1.010 1.001-1.035 Urine Protein 1+ H Negative Urine Ketones Negative Negative Urine Blood 2+ H Negative /uL Urine Nitrite 2+ H Negative Urine Bilirubin Negative Negative Urine Urobilinogen Normal Negative mg/dL Urine Leukocyte Esterase 3+ Negative /uL Urine RBC 24 0 - 4 /hpf Urine WBC Clumps Present None Seen /hpf Urine Microscopic WBC 3327 H 0-5 /HPF Urine Squamous Epithelial Cells None seen <5 /hpf Urine Bacteria Few H None Seen /hpf Urine Sodium 49 40-220 mmol/L Urine Glucose Normal Normal mg/dL Influenza Type A Antigen Negative Negative Influenza Type B Antigen Negative Negative SARS-CoV-2 Antigen (Rapid) Negative NEGATIVE White Blood Count 10.2 4.4-10.8 10^3/uL Red Blood Count 3.04 L 4.0-5.20 10^6/uL Hemoglobin 9.8 L 12.2-16.2 g/dL Hematocrit 28.6 L 36.0-46.0 % Mean Corpuscular Volume 93.8 80.0-100.0 fL Mean Corpuscular Hemoglobin 32.1 H 28.0-32.0 pg Mean Corpuscular Hemoglobin Concent 34.2 32.0-36.0 g/dL Red Cell Distribution Width 16.7 H 11.8-14.3 % Platelet Count 163 140-450 10^3/uL Mean Platelet Volume 7.2 6.9-10.8 fL Neutrophils (%) (Auto) 78.7 37.0-80.0 % Lymphocytes (%) (Auto) 9.4 L 10.0-50.0 % Monocytes (%) (Auto) 11.5 0.0-12.0 % Eosinophils (%) (Auto) 0.3 0.0-7.0 % Basophils (%) (Auto) 0.1 0.0-2.0 % Neutrophils # (Auto) 8.0 1.6-8.6 10 ^3/uL Lymphocytes # (Auto) 1.0 0.4-5.4 10 ^3/uL Monocytes # (Auto) 1.2 0-1.3 10 ^3/uL Eosinophils # (Auto) 0 0-0.8 10 ^3/uL Basophils # (Auto) 0 0-0.2 10 ^3/uL Nucleated Red Blood Cells 0.0 % Sodium Level 132 L 136-145 mmol/L Potassium Level 3.5 3.5-5.1 mmol/L Chloride Level 103 98-107 mmol/L Carbon Dioxide Level 19 L 20-31 mmol/L Anion Gap 10 5-15 Blood Urea Nitrogen 38 H 9-23 mg/dL Creatinine 1.73 H 0.550-1.02 mg/dL Glomerular Filtration Rate Calc 30 >90 mL/min BUN/Creatinine Ratio 22.0 H 10.0-20.0 Serum Glucose 95 74-106 mg/dL Calcium Level 9.4 8.7-10.4 mg/dL Total Bilirubin 0.3 0.2-1.0 mg/dL Aspartate Amino Transferase (AST) 64 H 13-40 U/L Alanine Aminotransferase (ALT) 38 7-40 U/L Alkaline Phosphatase 92 46-116 U/L Troponin I High Sensitivity 14 </=34 ng/L Total Protein 7.1 5.7-8.2 g/dL Albumin 3.9 3.2-4.8 g/dL Thyroid Stimulating Hormone (TSH) 0.20 L 0.55-4.78 uIU/mL CT ABDOMEN AND PELVIS WITHOUT CONTRAST FINDINGS: Evaluation of the abdomen and pelvis is limited without intravenous contrast. There is a 7 mm calculus in the proximal left ureter with moderate left hydroureteronephrosis. There is a 2 mm calculus in the lower pole of the right kidney. There is no right renal hydronephrosis. There is no right ureteral calculus or hydroureter. Gallbladder is surgically absent. The liver, gallbladder, pancreas, adrenal glands, and spleen appear within normal limits. There is no gross evidence of abdominal lymphadenopathy. There is no free fluid or free air. The stomach grossly appears unremarkable. The small and large bowel loops demonstrate normal caliber. There are multiple diverticula in the distal colon without evidence of acute diverticulitis. The abdominal aorta and IVC appear within normal limits. There is right total hip arthroplasty with moderate amount of streak artifact limiting evaluation of the pelvis. Visualized bladder grossly appears unremarkable for degree of distention. The pelvic organ is not adequately visualized.. There is no gross evidence of a pelvic mass. There is no obvious free fluid collection. There is scarring versus atelectasis in the left lung base. There is no acute osseous abnormality. IMPRESSION: 1. 7 mm calculus in the proximal left ureter with moderate left hydroureteronephrosis. 2. 2 mm nonobstructive right lower pole renal calculus. 3. Distal colon diverticulosis. Assessment/Plan Assessment/Plan Assessment: Renal calculus, bilateral, Left hydroureteronephrosis, UTI, Acute kidney injury, Urinary retention, Hypertension, COPD, Arthritis, Plan: Admit to Med-Surg, Urology consult, IV hydration, IV antibiotics, Flomax, Pain control, Place Michaud catheter, Home medications reconciled, Plan discussed with: Patient My Orders Orders - GABY SINGH Procedure Category Date Status Time Ct Ab Pel Wo Con-No CT 09/01/24 Resulted Oral Or Iv 07:54 Admit ADMIT 09/01/24 Verified 10:13 Code Status CODE 09/01/24 Verified 10:13 Hydrocodone-Acet PHA 09/01/24 Verified 5/325mg Tab ([place] 10:15 Ondansetron Hcl PHA 09/01/24 Verified (Zofran) 10:15 Docusate Sodium PHA 09/01/24 Verified Capsule (Colace 10:15 Fall Risk Precautions LORENA 09/01/[address] 10:13 Complete Blood Count LAB 09/02/24 Verified 04:00 Comprehensive LAB 09/02/24 Verified Metabolic Panel 04:00 Cardiac DIET 09/01/24 Verified Diet-2gna,Lofat,Lochol Lunch Condition: Serious LORENA 09/01/24 Verified 10:13 Acetaminophen Tablet PHA 09/01/24 Verified (Tylenol Tablet) 10:15 NS PHA 09/01/24 Verified 10:15 Tamsulosin PHA 09/01/24 Verified Hydrochloride (Flomax) 10:15 Tamsulosin PHA 09/01/24 Verified Hydrochloride (Flomax) 18:00 * Urology Consult CONS 09/01/24 Verified 10:13 Ketorolac Injection PHA 09/01/24 Verified (Toradol Injection) 10:15 Date of Service: Sep 01, 2024 Billing Provider: GABY SINGH Common Visit Codes: [id number] INP/OBS CARE (MOD) GABY SINGH Sep 01, 2024 10:31
[2024-09-01] MEDS: SODIUM CHLORIDE 0.9% 1,000 ML IV ONE (11:10)
[2024-09-01] MEDS: TAMSULOSIN HYDROCHLORIDE 0.4 MG CAP PO ONE (11:21)
[2024-09-01] MEDS: KETOROLAC TROMETH 30 MG/ML 1ML VIAL IV PRN (11:24)
--- NOTE | 2024-09-01 11:37 | DVHINCON2 ---
Date of service: Sep 01, 2024 Referring Physician Hospitalist - Edenilson JOHNSON Reason for Consultation proximal stone - Left History of Present Illness History Source: Patient, RN Notes, MD Notes Exam Limitations: No limitations HPI 79 yo female admitted for recent fall. C/o left flank pain and dysuria. CT showed a proximal 7 mm obstructing stone with moderate hydro. Creatinine is elevated from baseline. Denies fever, n/v/d. No chills. No hematuria. UA shows evidence of UTI. Home Meds Active Scripts Respiratory Therapy Supplies (Nebulizer Kit/Tubing/Mout) Kit, APPLIC XX BID PRN, #1 For nebulizing Prov:GERRI BALDWIN RESIDENT 05/28/24 Prednisone (Prednisone) 20 Mg Tab, 20 MG PO DAILY for 4 Days, #4 MG Prov:GERRI BALDWIN RESIDENT 05/28/24 Acetylcysteine (Mucomyst) 400 Mg/4 Ml So, 100 MG NEB Q6HR for 10 Days, #60 ML Prov:GERRI BALDWIN 05/28/24 Acetaminophen (Acetaminophen) 325 Mg Tab, 650 MG PO Q6HP PRN for 10 Days, #80 TAB Prov:GERRI BALDWIN 05/28/24 Albuterol Sulfate (Albuterol Sulfate Hfa) 108 Mcg/Act Aer, 108 MCG IN Q6HPRN PRN, #1 AER Prov:ZARINA LING MD 06/02/23 Reported Medications Infliximab (Remicade) 100 Mg Inj, 100 MG IV, INJ 05/27/24 Nitroglycerin (NTROSTAT SUBLINGUAL) 0.4 Mg Sl, 0.4 MG SL PRN, TAB *MAY REPEAT EVERY 5 MINUTES X 3 TOTAL IF NO RELIEF, INITIATE ANALGESIC THERAPY. NOTIFY PHYSICIAN *Do not crush. 05/27/24 Multiple Vitamins W/ Minerals (Eye Vitamins) Cap, 1 OR, CAP 05/27/24 Furosemide (Furosemide) 40 Mg Tab, 1 TAB PO DAILY, #30 TAB 5 Refills 05/27/24 Tolterodine Tartrate (Tolterodine Tartrate ER) 4 Mg Cap, 1 CAP PO DAILY 05/27/24 Lidocaine HCl (Lidocaine Hydrochloride) 3 % Cre, TOP PRN for NUMBING 05/27/24 Tramadol Hcl (Tramadol Hcl) 50 Mg Tab, 1 TAB PO DAILYPRN PRN for PAIN SCALE 7 THRU 10 05/27/24 Omeprazole (Omeprazole Dr) 40 Mg Cap 05/27/24 Aspirin (Aspirin Low Dose) 81 Mg Chw, 81 MG PO, TAB.CHEW 05/28/23 Celecoxib (Celecoxib) 200 Mg Cap, 1 CAP PO DAILY 05/28/23 Mirabegron Base (MYRBETRIQ) 50 Mg Tab, 1 TAB PO DAILY 05/28/23 Levothyroxine Sodium (Levothyroxine Sodium) 88 Mcg Tab, 1 TAB PO DAILY 05/28/23 Losartan Potassium (Losartan Potassium) 100 Mg Tab, 1 TAB PO DAILY 05/28/23 Pravastatin Sodium (PRAVACHOL TABLET) 20 Mg Tb, 1 TAB PO DAILY 05/28/23 Sulfasalazine (Azulfidine) 500 Mg Tb, 2 TAB PO BID 05/28/23 Isosorbide Mononitrate (Isosorbide Mononitrate Er) 30 Mg Tab, 1 TAB PO DAILY 05/28/23 Primidone (MYSOLINE TABLET) 50 Mg Tb, 1 TAB PO BID 05/28/23 Labetalol HCl (Labetalol HCl) 200 Mg Tab, 2 TAB PO BID 05/28/23 Clonidine Hydrochloride (Clonidine Hcl) 0.1 Mg Tab, 1 TAB PO BID 05/28/23 Topiramate (Topiramate) 50 Mg Tab, 1 TAB PO BID 05/28/23 Past Medical History Patient Family History: Cardiovascular disease G8 FATHER FH: heart attack G8 FATHER FH: lung cancer G8 MOTHER Review of Systems Gastrointestinal: Abdominal Pain Genitourinary: Dysuria, Pain H&P Exam Vital Signs Vital Signs Date Time Temp Pulse Resp B/P (MAP) Pulse Ox O2 Delivery O2 Flow Rate FiO2 09/01/24 08:20 90 20 97 Room Air* 0 21 09/01/24 08:00 98.2 136/57 (83) 98.2 Labs/Xrays [address] [address] Ph: [phone] DIAGNOSTIC IMAGING Diagnostic Imaging Report : [id number] Signed PATIENT: AMI DYE AACCT: [id number] UNIT: [id number] : 1945 LOC: ER ROOM / BED: / AGE / SEX: 79 / F ADM STATUS: REG ER SERVICE [id number] ORDERING PHYSICIAN: GABY SINGH SENIOR FIELD SERVICE ENGINEER PROCEDURE(s): ABPL - CT AB PEL WO CON-NO ORAL OR IV REASON: left abdominal pain ORDER NUMBER(s): [id number], ACCESSION NUMBER(s): [id number] CT ABDOMEN AND PELVIS WITHOUT CONTRAST CLINICAL HISTORY: left abdominal pain TECHNIQUE: Multiple contiguous axial images of the abdomen and pelvis without intravenous contrast. The images were reformatted degenerate coronal and sagittal reconstructions. All CT scans at this medical facility are performed using dose modulation techniques as appropriate to a performed exam including the following:Automated exposure control was utilized; adjustment of the MA and/or KV according to patient size; and use of iterative reconstruction technique. Radiation Dose Information: CT Dose: CTDI volume is 12 mGy. Dose-length product is 621 mGy*cm Comparison: None FINDINGS: Evaluation of the abdomen and pelvis is limited without intravenous contrast. There is a 7 mm calculus in the proximal left ureter with moderate left hydroureteronephrosis. There is a 2 mm calculus in the lower pole of the right kidney. There is no right renal hydronephrosis. There is no right ureteral calculus or hydroureter. Gallbladder is surgically absent. The liver, gallbladder, pancreas, adrenal glands, and spleen appear within normal limits. There is no gross evidence of abdominal lymphadenopathy. There is no free fluid or free air. The stomach grossly appears unremarkable. The small and large bowel loops demonstrate normal caliber. There are multiple diverticula in the distal colon without evidence of acute diverticulitis. The abdominal aorta and IVC appear within normal limits. There is right total hip arthroplasty with moderate amount of streak artifact limiting evaluation of the pelvis. Visualized bladder grossly appears unremarkable for degree of distention. The pelvic organ is not adequately visualized.. There is no gross evidence of a pelvic mass. There is no obvious free fluid collection. There is scarring versus atelectasis in the left lung base. There is no acute osseous abnormality. IMPRESSION: 1. 7 mm calculus in the proximal left ureter with moderate left hy droureteronephrosis. 2. 2 mm nonobstructive right lower pole renal calculus. 3. Distal colon diverticulosis. HS:Y ATED BY: CHRIS SWARTZ MD DICTATED DATE/TIME: 09/01/24952 SIGNED BY: CHRIS SWARTZ MD SIGNED DATE/TIME: 09/01/24952 CC: Labs Test 09/01/24 08:33 08/31/24 22:53 08/31/24 21:43 Range/Units Urine Color Yellow Yellow Urine Clarity Cloudy H Clear Urine pH 6.0 5.0-9.0 Urine Specific [place] 1.010 1.001-1.035 Urine Protein 1+ H Negative Urine Ketones Negative Negative Urine Blood 2+ H Negative /uL Urine Nitrite 2+ H Negative Urine Bilirubin Negative Negative Urine Urobilinogen Normal Negative mg/dL Urine Leukocyte Esterase 3+ Negative /uL Urine RBC 24 0 - 4 /hpf Urine WBC Clumps Present None Seen /hpf Urine Microscopic WBC 3327 H 0-5 /HPF Urine Squamous Epithelial Cells None seen <5 /hpf Urine Bacteria Few H None Seen /hpf Urine Sodium 49 40-220 mmol/L Urine Glucose Normal Normal mg/dL Influenza Type A Antigen Negative Negative Influenza Type B Antigen Negative Negative SARS-CoV-2 Antigen (Rapid) Negative NEGATIVE White Blood Count 10.2 4.4-10.8 10^3/uL Red Blood Count 3.04 L 4.0-5.20 10^6/uL Hemoglobin 9.8 L 12.2-16.2 g/dL Hematocrit 28.6 L 36.0-46.0 % Mean Corpuscular Volume 93.8 80.0-100.0 fL Mean Corpuscular Hemoglobin 32.1 H 28.0-32.0 pg Mean Corpuscular Hemoglobin Concent 34.2 32.0-36.0 g/dL Red Cell Distribution Width 16.7 H 11.8-14.3 % Platelet Count 163 140-450 10^3/uL Mean Platelet Volume 7.2 6.9-10.8 fL Neutrophils (%) (Auto) 78.7 37.0-80.0 % Lymphocytes (%) (Auto) 9.4 L 10.0-50.0 % Monocytes (%) (Auto) 11.5 0.0-12.0 % Eosinophils (%) (Auto) 0.3 0.0-7.0 % Basophils (%) (Auto) 0.1 0.0-2.0 % Neutrophils # (Auto) 8.0 1.6-8.6 10 ^3/uL Lymphocytes # (Auto) 1.0 0.4-5.4 10 ^3/uL Monocytes # (Auto) 1.2 0-1.3 10 ^3/uL Eosinophils # (Auto) 0 0-0.8 10 ^3/uL Basophils # (Auto) 0 0-0.2 10 ^3/uL Nucleated Red Blood Cells 0.0 % Sodium Level 132 L 136-145 mmol/L Potassium Level 3.5 3.5-5.1 mmol/L Chloride Level 103 98-107 mmol/L Carbon Dioxide Level 19 L 20-31 mmol/L Anion Gap 10 5-15 Blood Urea Nitrogen 38 H 9-23 mg/dL Creatinine 1.73 H 0.550-1.02 mg/dL Glomerular Filtration Rate Calc 30 >90 mL/min BUN/Creatinine Ratio 22.0 H 10.0-20.0 Serum Glucose 95 74-106 mg/dL Calcium Level 9.4 8.7-10.4 mg/dL Total Bilirubin 0.3 0.2-1.0 mg/dL Aspartate Amino Transferase (AST) 64 H 13-40 U/L Alanine Aminotransferase (ALT) 38 7-40 U/L Alkaline Phosphatase 92 46-116 U/L Troponin I High Sensitivity 14 </=34 ng/L Total Protein 7.1 5.7-8.2 g/dL Albumin 3.9 3.2-4.8 g/dL Thyroid Stimulating Hormone (TSH) 0.20 L 0.55-4.78 uIU/mL Assessment/Plan Problem List: (1) Hydronephrosis with renal and ureteral calculous obstruction (2) Renal colic on left side (3) JAKE (acute kidney injury) (4) Dysuria Plan pain meds prn monitor renal function garcia to gravity treat UTI renal US in the morning AFTER 24 hrs of garcia to reassess hydro, if moderate or greater proceed with placement of left PCN via IR service. Definitive stone treatment TBA after resolution of UTI follow up urology 1-2 weeks. Plan discussed with: Patient, Other JOSSIE HASSAN NP Sep 01, 2024 11:37
[2024-09-01] MEDS: cefTRIAXone 1GM/50ML D5W 50 ML IV ONE (12:26)
[2024-09-01 15:02] LABS: INR 1.06 (0.9-1.15); Prothrombin Time 11.2 sec (9.3-11.8)
[2024-09-01] MEDS ORDERED: TAMSULOSIN HYDROCHLORIDE 0.4 MG CAP PO SCH (18:00)
[2024-09-01 18:42] VITALS: PULSE 81; O2SAT 99
[2024-09-01 19:42] VITALS: PULSE 81; O2SAT 99
[2024-09-01] MEDS: HYDROcodone-ACET 5/325MG TAB PO PRN (22:02)
[2024-09-01] MEDS: cloNIDine HCL 0.1 MG TAB PO SCH (22:07)
[2024-09-01] MEDS: TOPIRAMATE 25 MG TAB PO SCH (22:08)
[2024-09-01] MEDS: LABETALOL HCL 200 MG TAB PO SCH (22:08)
[2024-09-02] VITALS (78 sets, daily range): BP systolic 74–130; BP diastolic 37–82; PULSE 77–101; RESP 15–34; TEMP 98.1–99.8; O2SAT 97–100
[2024-09-02] MEDS: ACETAMINOPHEN 325 MG TAB PO PRN (00:19)
[2024-09-02] MEDS: MORPHINE SULFATE INJ 2 MG/ml SYRG IV ONE ×2 (00:39→12:43)
[2024-09-02 07:00] LABS: Hematocrit 27.5 % (36.0-46.0); Hemoglobin 8.9 g/dL (12.2-16.2); Mean Corpuscular Hemoglobin 31.2 pg (28.0-32.0); Mean Corpuscular Hgb Conc. 32.5 g/dL (32.0-36.0); Mean Corpuscular Volume 95.9 fL (80.0-100.0); Platelet Count (auto) 154 10^3/uL (140-450); Red Blood Cells 2.86 10^6/uL (4.0-5.20); Red Cell Distribution Width 17.8 % (11.8-14.3); White Blood Cell 18.7 10^3/uL (4.4-10.8)
[2024-09-02 07:06] LABS: Albumin 3.2 g/dL (3.2-4.8); Anion Gap 18 (5-15); BUN/Creatinine Ratio 18.8 (10.0-20.0); Calcium 9.6 mg/dL (8.7-10.4); Chloride 107 mmol/L (98-107); Glucose 86 mg/dL (74-106); Sodium 137 mmol/L (136-145); Total Protein 5.9 g/dL (5.7-8.2)
[2024-09-02 07:07] LABS: Bilirubin, Total 0.4 mg/dL (0.2-1.0)
[2024-09-02 07:12] LABS: Alanine Aminotransferase 60 U/L (7-40); Alkaline Phosphatase 159 U/L (46-116); Aspartate Aminotransferase 83 U/L (13-40); Blood Urea Nitrogen 31 mg/dL (9-23); Carbon Dioxide 12 mmol/L (20-31); Potassium 3.3 mmol/L (3.5-5.1)
[2024-09-02 07:25] LABS: Basophils % (manual) 0 (0.0-2.0); Blast Cells 0; Eosinophils % (manual) 0 (0-7); Metamyelocytes % 0; Myelocytes % 0; Promyelocytes % 0; Reactive Lymphocytes 0
[2024-09-02] MEDS: cefTRIAXone 1GM/50ML D5W 50 ML IV SCH (08:04)
[2024-09-02 08:23] LABS: Band Neutrophils % (manual) 17; Lymphocytes % (manual) 8 (10.0-50.0); Monocytes % (manual) 3 (0-12)
[2024-09-02 08:24] LABS: Platelet Estimate Adequate
[2024-09-02] MEDS: LIDOCAINE 2%HCL (LOCAL ANESTH.) INJ 20ML MDV ONE (08:40)
[2024-09-02] MEDS: SODIUM CHLORIDE 0.9% 500 ML IV ONE ×2 (08:40→09:40)
[2024-09-02] MEDS: IODIXANOL 320MG/ML 100ML BTL IV ONE (09:14)
[2024-09-02] MEDS ORDERED: FUROSEMIDE 40 MG TAB PO SCH (10:00)
[2024-09-02] MEDS ORDERED: CELECOXIB 100 MG CAP PO SCH (10:00)
[2024-09-02] MEDS ORDERED: LOSARTAN POTASSIUM 50 MG TAB PO SCH (10:00)
--- NOTE | 2024-09-02 11:26 | DVH ---
XY PERCUTANEOUS NEPHROSTOMY, HISTORY: Nephrostomy tube insertion for a septic left kidney stone with hydronephrosis. PROCEDURE: Informed consent was obtained. The patient was placed on the fluoroscopic table in a prone position and IV sedation administered. The left flank was prepped with chlorhexidine which was allow ed to dry and draped in the usual sterile fashion. Time out was performed. and the soft tissues infil trated with 1% lidocaine local anesthetic. Utilizing ultrasound guidance, a 21 gauge Accu Stick needl e was advanced from a posterolateral approach into an middle pole calyx, and a small amount of contra st was injected under fluoroscopy to confirm positioning. Over a mandril wire, exchange was made to a non-vascular access set, through which was advanced an 0.035 wire. Following serial dilation, an 8.5 [place] multipurpose nephrostomy catheter was placed with tip pigtailed within the renal pelvis. Posi tion was confirmed with antegrade nephrostogram. The catheter was secured in place and connected to g ravity drainage. A sterile dressing was applied. No immediate complication was identified. DAP 281 FLUOROSCOPY TIME: 2.2 minutes. CONTRAST USED: 10 mL Isovue 300. FINDINGS: Dilated left renal collecting system with contrast obstructed at the proximal ureter. New 8 .5 [place] nephrostomy tube via a posterior middle pole calyceal access, with loop coiled within the r enal pelvis. IMPRESSION: Left hydronephrosis due to septic left kidney stone, status post placement of 8.5 [place] left percuta neous nephrostomy catheter. PLAN: Routine catheter care.
--- NOTE | 2024-09-02 11:26 | DVH ---
EXAM: XY CHEST PORTABLE Indication: SOB Technique: Single frontal view of the chest was obtained Comparison: XY CHEST PORTABLE on DOS: 05/26/24, XY CHEST PORTABLE on DOS: 02/26/24, XY CHEST XRAY 1 VIEW on DOS: 05/30/23, XY CHEST PORTABLE on DOS: 05/27/23 FINDINGS: Lines and Tubes: None Lungs: No focal consolidation. Pleura: No effusion. No pneumothorax. Cardiomediastinal contours: Cardiomegaly. Atherosclerotic vascular calcifications of the thoracic aor ta are noted. Bones: No acute osseous abnormality. IMPRESSION: Cardiomegaly. No acute cardiopulmonary disease.
--- NOTE | 2024-09-02 11:26 | DVH ---
XY PERCUTANEOUS NEPHROSTOMY, HISTORY: Nephrostomy tube insertion for a septic left kidney stone with hydronephrosis. PROCEDURE: Informed consent was obtained. The patient was placed on the fluoroscopic table in a prone position and IV sedation administered. The left flank was prepped with chlorhexidine which was allow ed to dry and draped in the usual sterile fashion. Time out was performed. and the soft tissues infil trated with 1% lidocaine local anesthetic. Utilizing ultrasound guidance, a 21 gauge Accu Stick needl e was advanced from a posterolateral approach into an middle pole calyx, and a small amount of contra st was injected under fluoroscopy to confirm positioning. Over a mandril wire, exchange was made to a non-vascular access set, through which was advanced an 0.035 wire. Following serial dilation, an 8.5 [place] multipurpose nephrostomy catheter was placed with tip pigtailed within the renal pelvis. Posi tion was confirmed with antegrade nephrostogram. The catheter was secured in place and connected to g ravity drainage. A sterile dressing was applied. No immediate complication was identified. DAP 281 FLUOROSCOPY TIME: 2.2 minutes. CONTRAST USED: 10 mL Isovue 300. FINDINGS: Dilated left renal collecting system with contrast obstructed at the proximal ureter. New 8 .5 [place] nephrostomy tube via a posterior middle pole calyceal access, with loop coiled within the r enal pelvis. IMPRESSION: Left hydronephrosis due to septic left kidney stone, status post placement of 8.5 [place] left percuta neous nephrostomy catheter. PLAN: Routine catheter care.
[2024-09-02] MEDS: NOREPINEPHRINE 8 MG/250ML KIT 250 ML IV SCH (11:40)
[2024-09-02] MEDS: SODIUM CHLORIDE 0.9% 1,000 ML IV ONE (11:40)
--- NOTE | 2024-09-02 13:36 | DVH ---
EXAM: XY CHEST PORTABLE Indication: s/p central line placement Technique: Single frontal view of the chest was obtained Comparison: XY CHEST PORTABLE on DOS: 09/02/24, XY CHEST PORTABLE on DOS: 05/26/24, XY CHEST PORTABLE o n DOS: 02/26/24, XY CHEST XRAY 1 VIEW on DOS: 05/30/23, XY CHEST PORTABLE on DOS: 05/27/23 FINDINGS: Lines and Tubes: Right internal jugular central venous catheter tip projects over the cavoatrial junc tion. Lungs: No focal consolidation. Pleura: No effusion. No pneumothorax. Cardiomediastinal contours: Cardiomegaly. Atherosclerotic vascular calcifications of the thoracic aor ta are noted. Bones: No acute osseous abnormality. IMPRESSION: Right central venous catheter in appropriate position.
[2024-09-02] MEDS ORDERED: POTASSIUM CHL 20MEQ/100ML 100 ML IV SCH (13:45)
--- NOTE | 2024-09-02 13:59 | DVHPN2 ---
Subjective Patient was seen his to have left flank pain. Noted pustulant drainage from nephrostomy tube Reviewed: Care Plan, H&P, Labs, Medications, Previous Orders Changes from previous H/P or p: No Changes General: Per HPI Eyes: No Pain, No Vision change, No Conjunctivae inflammation, No Eyelid inflammation, No Other, No Redness ENT: No Ear pain, No Ear discharge, No Nose pain, No Nose discharge, No Nose congestion, No Mouth pain, No Mouth swelling, No Throat pain, No Throat swelling, No Other Cardiovascular: No Chest Pain, No Palpitations, No Orthopnea, No Paroxysmal Noc. Dyspnea, No Edema, No Lt Headedness, No Other Respiratory: No Cough, No Dry, No Shortness of breath, No SOB with excertion, No Wheezing, No Hemoptysis, No Pleuritic Pain, No Sputum, No Other Gastrointestinal: No Nausea, No Vomiting; Abdominal Pain; No Diarrhea, No Constipation, No Melena, No Hematochezia, No Other Genitourinary: Dysuria; No Frequency, No Incontinence, No Hematuria, No Retention; Other (Difficulty urinating) Musculoskeletal: No other, No neck pain, No shoulder pain, No arm pain, No back pain, No hand pain, No leg pain, No foot pain Skin: No Rash, No Lesions, No Jaundice, No Bruising, No Other Objective Vitals Vital Signs Date Time Temp Pulse Resp B/P (MAP) Pulse Ox O2 Delivery O2 Flow Rate FiO2 09/02/24 12:43 83 14 105/37 09/02/24 09:52 99 09/02/24 08:53 99.8 99.8 09/01/24 19:42 Room Air* 0 21 Intake/Output Intake and Output 09/02/24 07:00 Intake Total 1050 ml Output Total 300 ml Balance 750 ml Intake IV Total 1050 ml Output Urine Total 300 ml General Appearance: Alert, Oriented X3, Cooperative Cardiovascular: Normal S1, Normal S2 Abdomen: Normal bowel sounds, Soft, No tenderness Musculoskeletal: Normal sensory function, Normal motor function Skin: Dry, Intact Psych/Mental Status: Mental status NL, Mood NL Medications Current Medications Medications Dose Ordered Sig/Pat Route Start Time Stop Time Status Last Admin Dose Admin Acetaminophen/ Hydrocodone Bitart 1 tab Q4HP PRN PO 09/01/24 10:15 09/01/24 22:02 1 TAB Ondansetron HCl 4 mg Q4HP PRN IV 09/01/24 10:15 Docusate Sodium 100 mg BIDPRN PRN PO 09/01/24 10:15 Acetaminophen 650 mg Q6HP PRN PO 09/01/24 10:15 09/02/24 00:19 650 MG Tamsulosin HCl 0.4 mg QPM PO 09/02/24 18:00 Levothyroxine Sodium 88 mcg DAILY PO 09/02/24 10:00 Pravastatin Sodium 20 mg DAILY PO 09/02/24 10:00 Celecoxib 200 mg DAILY PO 09/02/24 10:00 Hold Topiramate 50 mg BID PO 09/01/24 22:00 09/01/24 22:08 50 MG Ipratropium [place] 0.5 mg Q4HPRN PRN NEB 09/02/24 09:30 Albuterol 2.5 mg Q4HPRN PRN NEB 09/02/24 09:30 Norepinephrine Bitartrate 250 ml @ 3.75 mls/hr Q24H IV 09/02/24 10:00 09/02/24 11:40 3.75 MLS/HR Meropenem 50 ml @ 17 mls/hr Q8HR IV 09/02/24 14:00 Sodium Bicarbonate 150 ml/Dextrose 1,150 ml @ 100 mls/hr [id number] IV 09/02/24 13:15 Laboratory Results Laboratory Tests 09/02/24 06:25 Chemistry Test 09/02/24 06:25 Albumin 3.2 g/dL (3.2-4.8) Calcium Level 9.6 mg/dL (8.7-10.4) Total Protein 5.9 g/dL (5.7-8.2) Coagulation Test 09/01/24 14:28 Prothrombin Time 11.2 sec (9.3-11.8) Prothrombin Time INR 1.06 (0.9-1.15) LFT Test 09/02/24 06:25 Alanine Aminotransferase (ALT) 60 U/L (7-40) H Alkaline Phosphatase 159 U/L (46-116) H Aspartate Amino Transferase (AST) 83 U/L (13-40) H Total Bilirubin 0.4 mg/dL (0.2-1.0) Urinalysis Test 09/01/24 08:33 Urine Color Yellow (Yellow) Urine Clarity Cloudy (Clear) H Urine pH 6.0 (5.0-9.0) Urine Specific [place] 1.010 (1.001-1.035) Urine Protein 1+ (Negative) H Urine Ketones Negative (Negative) Urine Blood 2+ /uL (Negative) H Urine Nitrite 2+ (Negative) H Urine Bilirubin Negative (Negative) Urine Urobilinogen Normal mg/dL (Negative) Urine Leukocyte Esterase 3+ /uL (Negative) Urine RBC 24 /hpf (0 - 4) Urine WBC Clumps Present /hpf (None Seen) Urine Microscopic WBC 3327 /HPF (0-5) H Urine Squamous Epithelial Cells None seen /hpf (<5) Urine Bacteria Few /hpf (None Seen) H Urine Sodium 49 mmol/L (40-220) Urine Glucose Normal mg/dL (Normal) Blood Gas Results Test 09/02/24 12:56 FiO2 % 32.0 Labs and/or images reviewed: Labs reviewed by me, Image(s) reviewed by me Assessment/Plan Assessment/Plan Impression: -septic shock -complicated cystitis -hypothyroidism -chronic systolic heart failure -acute hypoxic respiratory failure -questionable renal abscess -primary hypertension -acute kidney injury, vasomotor nephropathy Plan: -patient had worsening hypotension despite fluid resuscitation. Patient was assessed in medical laboratory specialist recovery area after having left nephrostomy tube placed. Patient was on norepinephrine at 6 micrograms/minute. Central line was placed by myself. Noted pustulant drainage from nephrostomy tube. -change IV antibiotics to Meropenem -blood in urine culture -CVP reading -VBG reveals metabolic acidosis, start sodium bicarbonate drip -PUD, DVT prophylaxis -echocardiogram -repeat labs and chest x-ray in a.m. Critical care time spent with patient discussing and formulating plan of care: 90 minutes. This does not include time spent performing procedures. This medical document was created using an electronic medical record system with [employer] dictation system. Although this document has been carefully reviewed, there may still be some phonetic and typographical errors. These areas are purely typographical due to imperfections of the software programs, and do not reflect any compromise in the patient's medical care. Plan discussed with: Patient, Other (RN) My Orders Orders - CJ HOUGH NP Procedure Category Date Status Time Venous Blood Gas RT 09/02/24 Logged 12:06 Meropenem 1gm Ivpb PHA 09/02/24 In Process (Merrem 1gm/ Ns) 14:00 Blood Culture JACIEL 09/02/24 Logged 12:06 Transfer Orders XFER 09/02/24 Transmitted 12:22 Chest Portable XY 09/02/24 Resulted 12:54 D5w 5% (Dextrose 5%) PHA 09/02/24 In Process W/Sodium Bicarb 50m 13:15 Cvp Monitoring ED NURSING 09/02/24 Transmitted Comprehensive LAB 09/03/24 Verified Metabolic Panel 04:00 Complete Blood Count LAB 09/03/24 Verified 04:00 Chest Portable XY 09/03/24 Logged 04:00 Potassium Chl Kee PHA 09/02/24 Verified KCL 13:45 Date of Service: Sep 02, 2024 Billing Provider: CJ HOUGH NP Common Visit Codes: 41213-[id number] CARE 30-74 MIN, 13011-[id number] CARE-EACH +30MIN CJ HOUGH NP Sep 02, 2024 13:59
--- NOTE | 2024-09-02 14:04 | DVHNC2 ---
Central Line Recorder of insertion practice: Sample Cutter Occupation of community health education coordinator: Name of community health education coordinator (Carrington Hough NP) Indication: Hypotension, CVP monitoring Room prepared for procedure: Yes Sample Cutter performed hand hygien: Yes Maximal sterile barrier precau: Mask/Eye shield, Sterile gown, Cap, Sterlie gloves, Large sterlie drape Skin Preparation: Chlorhexidine gluconate Skin preparation completely dr: Yes Insertion site: Right, Internal jugular Central line catheter type: [id number] dialysis Number of lumens: 3 Central line exchanged over a: No Antiseptic ointment applied to: No Post Assessment: Chest X-Ray, Proper placement, No Pneumothorax Informed consent obtained: Yes Risks/benefits/alt described: Yes Notes Ultrasound guidance used. Estimated blood loss: 5 mL Chest x-ray reviewed by myself. Ultrasound guidance CPT code: 68880 Date of Service: Sep 02, 2024 Billing Provider: CJ HOUGH NP Cardiology Common Codes: PROCEDURE ONLY CJ HOUGH NP Sep 02, 2024 14:04
[2024-09-02] MEDS: SODIUM BICARB 50mEq/50ml Vial 150 ML in D5W 5% 1,000 ML IV SCH (14:05)
[2024-09-02] MEDS: MEROPENEM 1GM IVPB 50 ML IV SCH (14:50)
[2024-09-02] MEDS: PRAVASTATIN SODIUM 20 MG TAB PO SCH (15:11)
[2024-09-02] MEDS: LEVOTHYROXINE SODIUM 88 MCG TAB PO SCH (15:12)
[2024-09-02] MEDS: TOPIRAMATE 25 MG TAB PO ONE (16:30)
[2024-09-02] MEDS: ALBUTEROL SULF 2.5 MG/0.5ML(0.5%) NEB SOLN NEB PRN (16:32)
[2024-09-02] MEDS: IPRATROPIUM BROM 0.5 MG/2.5ML INH SOL NEB PRN (16:33)
[2024-09-02] MEDS: POTASSIUM CHL 20MEQ/50ML 50 ML IV SCH (16:35)
[2024-09-02] MEDS: TAMSULOSIN HYDROCHLORIDE 0.4 MG CAP PO SCH (18:00)
--- NOTE | 2024-09-02 18:02 | DVHPN2 ---
Progress Note - Dictate Date Seen: Sep 02, 2024 Has the PT tested + for MRSA If YES, has PT been informed?: No Medical Necessity Reason Pt with a Central, PICC or Fol: Yes The following are medically ne: Central Line, Garcia Catheter (s) Reason for garcia catheter: Bladder Retention/Obstruc vital signs Vital Sign Date Time Temp Pulse Resp B/P (MAP) Pulse Ox O2 Delivery O2 Flow Rate FiO2 09/02/24 17:00 87 23 109/60 (76) 97 09/02/24 16:34 Nasal Cannula* 3 32 09/02/24 14:03 99.8 99.8 Total Intake and Output 09/01/24 09/01/24 09/02/24 15:00 23:00 07:00 Intake Total 1050 ml Output Total 300 ml Balance 1050 ml -300 ml medications Current Medications Medications Dose Ordered Sig/Pat Route Start Time Stop Time Status Last Admin Dose Admin Acetaminophen/ Hydrocodone Bitart 1 tab Q4HP PRN PO 09/01/24 10:15 09/02/24 15:16 1 TAB Ondansetron HCl 4 mg Q4HP PRN IV 09/01/24 10:15 Docusate Sodium 100 mg BIDPRN PRN PO 09/01/24 10:15 Acetaminophen 650 mg Q6HP PRN PO 09/01/24 10:15 09/02/24 00:19 650 MG Tamsulosin HCl 0.4 mg QPM PO 09/02/24 18:00 Levothyroxine Sodium 88 mcg DAILY PO 09/02/24 10:00 09/02/24 15:12 88 MCG Pravastatin Sodium 20 mg DAILY PO 09/02/24 10:00 09/02/24 15:11 20 MG Celecoxib 200 mg DAILY PO 09/02/24 10:00 Hold Topiramate 50 mg BID PO 09/01/24 22:00 09/01/24 22:08 50 MG Ipratropium [place] 0.5 mg Q4HPRN PRN NEB 09/02/24 09:30 09/02/24 16:33 0.5 MG Albuterol 2.5 mg Q4HPRN PRN NEB 09/02/24 09:30 09/02/24 16:32 2.5 MG Norepinephrine Bitartrate 250 ml @ 3.75 mls/hr Q24H IV 09/02/24 10:00 09/02/24 11:40 3.75 MLS/HR Meropenem 50 ml @ 17 mls/hr Q8HR IV 09/02/24 14:00 09/02/24 14:50 17 MLS/HR Sodium Bicarbonate 150 ml/Dextrose 1,150 ml @ 100 mls/hr [id number] IV 09/02/24 13:15 09/02/24 14:05 100 MLS/HR Potassium Chloride 50 ml @ 25 mls/hr Q2H IV 09/02/24 15:30 09/02/24 19:29 09/02/24 16:35 25 MLS/HR laboratory and microbiology Laboratory Tests 09/02/24 06:25 Test 09/02/24 06:25 Range/Units Serum Glucose 86 74-106 mg/dL Assessment/Plan continue medical management stone treatment TBA when medically stabilized. Problems(with codes): (1) Nephrostomy status (2) Hydronephrosis with renal and ureteral calculous obstruction (3) UTI (urinary tract infection) (4) COPD (chronic obstructive pulmonary disease) (5) Breast cancer (6) JAKE (acute kidney injury) Prognosis fair Plan discussed with: Patient, Other Total Time (mins): 20 JOSSIE HASSAN NP Sep 02, 2024 18:02
[2024-09-03] VITALS (80 sets, daily range): BP systolic 92–152; BP diastolic 39–92; PULSE 84–104; RESP 13–33; TEMP 97.7–99.6; O2SAT 96–100
[2024-09-03 03:52] LABS: Basophils # (auto) 0 10 ^3/uL (0-0.2); Basophils % (auto) 0.1 % (0.0-2.0); Eosinophils # (auto) 0.1 10 ^3/uL (0-0.8); Eosinophils % (auto) 0.6 % (0.0-7.0); Lymphocytes # (auto) 0.8 10 ^3/uL (0.4-5.4); Neutrophils # (auto) 14.6 10 ^3/uL (1.6-8.6); White Blood Cell 16.4 10^3/uL (4.4-10.8)
[2024-09-03 03:54] LABS: Hematocrit 24.8 % (36.0-46.0); Hemoglobin 8.1 g/dL (12.2-16.2); Mean Corpuscular Hemoglobin 30.3 pg (28.0-32.0); Mean Corpuscular Hgb Conc. 32.6 g/dL (32.0-36.0); Mean Corpuscular Volume 92.8 fL (80.0-100.0); Monocytes # (auto) 0.8 10 ^3/uL (0-1.3); Monocytes % (auto) 4.9 % (0.0-12.0); Neutrophils % (auto) 89.4 % (37.0-80.0); Platelet Count (auto) 169 10^3/uL (140-450); Red Blood Cells 2.68 10^6/uL (4.0-5.20); Red Cell Distribution Width 17.3 % (11.8-14.3)
[2024-09-03 04:06] LABS: Anion Gap 10 (5-15); BUN/Creatinine Ratio 21.5 (10.0-20.0); Carbon Dioxide 21 mmol/L (20-31); Chloride 104 mmol/L (98-107)
[2024-09-03 04:26] LABS: Alanine Aminotransferase 42 U/L (7-40); Albumin 3.1 g/dL (3.2-4.8); Alkaline Phosphatase 148 U/L (46-116); Bilirubin, Total 0.3 mg/dL (0.2-1.0); Blood Urea Nitrogen 31 mg/dL (9-23); Calcium 8.4 mg/dL (8.7-10.4); Glucose 158 mg/dL (74-106); Potassium 3.3 mmol/L (3.5-5.1); Sodium 135 mmol/L (136-145); Total Protein 5.6 g/dL (5.7-8.2)
[2024-09-03 04:41] LABS: Aspartate Aminotransferase 28 U/L (13-40)
[2024-09-03] MEDS: POTASSIUM CHL 20MEQ/50ML 50 ML IV ONE (05:06)
--- NOTE | 2024-09-03 05:13 | DVH ---
EXAM: XR Chest, 1 View CLINICAL INDICATION: chf TECHNIQUE: Frontal view of the chest. COMPARISON: XY CHEST PORTABLE on DOS: 09/02/24, XY CHEST PORTABLE on DOS: 09/02/24, XY CHEST PORTABLE on DOS: 05/26/24, XY CHEST PORTABLE on DOS: 02/26/24, XY CHEST XRAY 1 VIEW on DOS: 05/30/23 FINDINGS: LUNGS AND PLEURAL SPACES: Mild congestive heart failure. No consolidation. No pneumothorax. HEART: Unremarkable. No cardiomegaly. MEDIASTINUM: Unremarkable. Normal mediastinal contour. BONES/JOINTS: Unremarkable. No acute fracture. TUBES, LINES AND DEVICES: Right internal jugular central venous catheter tip in the superior vena c lacie. OTHER FINDINGS: . . IMPRESSION: Mild congestive heart failure.
[2024-09-03] MEDS: POTASSIUM CHL 20MEQ/100ML 100 ML IV ONE (05:45)
--- NOTE | 2024-09-03 10:12 | DVHPN2 ---
Subjective Patient reporting generalized body aches as well as subjective dyspnea with conversation. Reviewed: Care Plan, H&P, Labs, Medications, Previous Orders Changes from previous H/P or p: Changes General: Per HPI Eyes: No Pain, No Vision change, No Conjunctivae inflammation, No Eyelid inflammation, No Other, No Redness ENT: No Ear pain, No Ear discharge, No Nose pain, No Nose discharge, No Nose congestion, No Mouth pain, No Mouth swelling, No Throat pain, No Throat swelling, No Other Cardiovascular: No Chest Pain, No Palpitations, No Orthopnea, No Paroxysmal Noc. Dyspnea, No Edema, No Lt Headedness, No Other Respiratory: No Cough, No Dry, No Shortness of breath, No SOB with excertion, No Wheezing, No Hemoptysis, No Pleuritic Pain, No Sputum, No Other Gastrointestinal: No Nausea, No Vomiting; Abdominal Pain; No Diarrhea, No Constipation, No Melena, No Hematochezia, No Other Genitourinary: Dysuria; No Frequency, No Incontinence, No Hematuria, No Retention; Other (Difficulty urinating) Musculoskeletal: No other, No neck pain, No shoulder pain, No arm pain, No back pain, No hand pain, No leg pain, No foot pain Skin: No Rash, No Lesions, No Jaundice, No Bruising, No Other Objective Vitals Vital Signs Date Time Temp Pulse Resp B/P (MAP) Pulse Ox O2 Delivery O2 Flow Rate FiO2 09/03/24 07:06 88 20 100 09/03/24 07:00 Room Air 09/03/24 07:00 0 21 09/03/24 06:30 124/53 (76) 09/03/24 04:00 98.3 98.3 Intake/Output Intake and Output 09/03/24 07:00 Intake Total 2132.90 ml Output Total 735 ml Balance 1397.90 ml Intake Oral 530 ml IV Total 1602.90 ml Output Urine Total 735 ml General Appearance: Alert, Oriented X3, Cooperative, mild distress Cardiovascular: Normal S1, Normal S2 Abdomen: Normal bowel sounds, Soft, No tenderness Musculoskeletal: Normal sensory function, Normal motor function Neuro: Sensation intact, Cranial nerves 3-12 NL Skin: Dry, Intact, Warm Psych/Mental Status: Mental status NL, Mood NL Medications Current Medications Medications Dose Ordered Sig/Pat Route Start Time Stop Time Status Last Admin Dose Admin Acetaminophen/ Hydrocodone Bitart 1 tab Q4HP PRN PO 09/01/24 10:15 09/02/24 22:46 1 TAB Ondansetron HCl 4 mg Q4HP PRN IV 09/01/24 10:15 Docusate Sodium 100 mg BIDPRN PRN PO 09/01/24 10:15 Acetaminophen 650 mg Q6HP PRN PO 09/01/24 10:15 09/02/24 00:19 650 MG Tamsulosin HCl 0.4 mg QPM PO 09/02/24 18:00 Levothyroxine Sodium 88 mcg DAILY PO 09/02/24 10:00 09/02/24 15:12 88 MCG Pravastatin Sodium 20 mg DAILY PO 09/02/24 10:00 09/02/24 15:11 20 MG Celecoxib 200 mg DAILY PO 09/02/24 10:00 Hold Topiramate 50 mg BID PO 09/01/24 22:00 09/01/24 22:08 50 MG Ipratropium [place] 0.5 mg Q4HPRN PRN NEB 09/02/24 09:30 09/03/24 07:00 0.5 MG Albuterol 2.5 mg Q4HPRN PRN NEB 09/02/24 09:30 09/03/24 07:00 2.5 MG Norepinephrine Bitartrate 250 ml @ 3.75 mls/hr Q24H IV 09/02/24 10:00 09/02/24 11:40 3.75 MLS/HR Meropenem 50 ml @ 17 mls/hr Q8HR IV 09/02/24 14:00 09/03/24 05:40 17 MLS/HR Sodium Bicarbonate 150 ml/Dextrose 1,150 ml @ 100 mls/hr [id number] IV 09/02/24 13:15 09/03/24 01:10 100 MLS/HR Morphine Sulfate 2 mg Q4HPRN PRN IV 09/03/24 09:30 UNV Laboratory Results Laboratory Tests 09/03/24 03:00 Chemistry Test 09/03/24 03:00 Albumin 3.1 g/dL (3.2-4.8) L Calcium Level 8.4 mg/dL (8.7-10.4) L Total Protein 5.6 g/dL (5.7-8.2) L LFT Test 09/03/24 03:00 Alanine Aminotransferase (ALT) 42 U/L (7-40) H Alkaline Phosphatase 148 U/L (46-116) H Aspartate Amino Transferase (AST) 28 U/L (13-40) Total Bilirubin 0.3 mg/dL (0.2-1.0) Urinalysis Test 09/01/24 08:33 Urine Color Yellow (Yellow) Urine Clarity Cloudy (Clear) H Urine pH 6.0 (5.0-9.0) Urine Specific [place] 1.010 (1.001-1.035) Urine Protein 1+ (Negative) H Urine Ketones Negative (Negative) Urine Blood 2+ /uL (Negative) H Urine Nitrite 2+ (Negative) H Urine Bilirubin Negative (Negative) Urine Urobilinogen Normal mg/dL (Negative) Urine Leukocyte Esterase 3+ /uL (Negative) Urine RBC 24 /hpf (0 - 4) Urine WBC Clumps Present /hpf (None Seen) Urine Microscopic WBC 3327 /HPF (0-5) H Urine Squamous Epithelial Cells None seen /hpf (<5) Urine Bacteria Few /hpf (None Seen) H Urine Sodium 49 mmol/L (40-220) Urine Glucose Normal mg/dL (Normal) Blood Gas Results Test 09/02/24 12:56 09/03/24 09:20 FiO2 % 32.0 32.0 Microbiology Microbiology Date/Time Source Procedure Growth Status 09/02/24 18:55 Urine - [place] Urine Culture - Preliminary Resulted Labs and/or images reviewed: Labs reviewed by me, Image(s) reviewed by me Assessment/Plan Assessment/Plan Impression: -septic shock -complicated cystitis -hypothyroidism -chronic systolic heart failure -acute hypoxic respiratory failure -questionable renal abscess -primary hypertension -acute kidney injury, vasomotor nephropathy Plan: -events: CVP six. VBG reveals improvement with acidosis. Hypokalemic. Patient noted to be in sinus tach with frequent unifocal PVCs. Off Levophed drip. Chest x-ray with pulmonary vascular congestion. -change IV antibiotics to Meropenem -repeat urine culture, blood culture pending -CVP reading -stop sodium bicarbonate drip -gentle diuresis -PUD, DVT prophylaxis -echocardiogram results pending -repeat labs and chest x-ray in a.m. Critical care time spent with patient discussing and formulating plan of care: 90 minutes. This does not include time spent performing procedures. This medical document was created using an electronic medical record system with [employer] dictation system. Although this document has been carefully reviewed, there may still be some phonetic and typographical errors. These areas are purely typographical due to imperfections of the software programs, and do not reflect any compromise in the patient's medical care. Plan discussed with: Patient, Other (RN) My Orders Orders - CJ HOUGH NP Procedure Category Date Status Time Venous Blood Gas RT 09/02/24 Logged 12:06 Meropenem 1gm Ivpb PHA 09/02/24 In Process (Merrem 1gm/ Ns) 14:00 Blood Culture JACIEL 09/02/24 In Process 12:06 Transfer Orders XFER 09/02/24 Transmitted 12:22 Chest Portable XY 09/02/24 Resulted 12:54 D5w 5% (Dextrose 5%) PHA 09/02/24 In Process W/Sodium Bicarb 50m 13:15 Cvp Monitoring ED NURSING 09/02/24 Transmitted Chest Portable XY 09/03/24 Resulted 04:00 Urine Bacterial JACIEL 09/02/24 In Process Culture 15:42 Venous Blood Gas RT 09/03/24 Logged 09:05 Basic Metabolic Panel LAB 09/04/24 Verified 05:00 Basic Metabolic Panel LAB 09/05/24 Verified 05:00 Basic Metabolic Panel LAB 09/06/24 Verified 05:00 Complete Blood Count LAB 09/04/24 Verified 05:00 Complete Blood Count LAB 09/05/24 Verified 05:00 Complete Blood Count LAB 09/06/24 Verified 05:00 Morphine Sulfate PHA 09/03/24 Logged Injection 09:30 Date of Service: Sep 03, 2024 Billing Provider: CJ HOUGH NP Common Visit Codes: [id number] CARE 30-74 MIN CJ HOUGH NP Sep 03, 2024 10:12
[2024-09-03] MEDS: FUROSEMIDE 20 MG TAB PO ONE (10:36)
[2024-09-03] MEDS: MAGNESIUM SULFATE 1GM/100ML 100 ML IV ONE (10:37)
[2024-09-03] MEDS: MORPHINE SULFATE INJ 2 MG/ml SYRG IV PRN (10:38)
[2024-09-04] VITALS (53 sets, daily range): BP systolic 122–178; BP diastolic 54–102; PULSE 7–100; RESP 13–28; TEMP 98.1–99; O2SAT 98–100
[2024-09-04] MEDS: MEROPENEM 1GM IVPB 50 ML IV SCH (01:28)
[2024-09-04 04:10] LABS: Basophils # (auto) 0 10 ^3/uL (0-0.2); Basophils % (auto) 0.2 % (0.0-2.0); Monocytes # (auto) 0.7 10 ^3/uL (0-1.3); Neutrophils # (auto) 10.6 10 ^3/uL (1.6-8.6); White Blood Cell 12.6 10^3/uL (4.4-10.8)
[2024-09-04 04:12] LABS: Eosinophils # (auto) 0.2 10 ^3/uL (0-0.8); Hematocrit 24.7 % (36.0-46.0); Lymphocytes % (auto) 8.2 % (10.0-50.0); Mean Corpuscular Hemoglobin 30.2 pg (28.0-32.0); Mean Corpuscular Hgb Conc. 32.4 g/dL (32.0-36.0); Mean Corpuscular Volume 93.2 fL (80.0-100.0); Monocytes % (auto) 5.8 % (0.0-12.0); Neutrophils % (auto) 83.8 % (37.0-80.0); Nucleated Red Blood Cells % 0.1 %; Platelet Count (auto) 182 10^3/uL (140-450); Red Blood Cells 2.65 10^6/uL (4.0-5.20); Red Cell Distribution Width 17.4 % (11.8-14.3)
[2024-09-04 04:36] LABS: Anion Gap 7 (5-15); Carbon Dioxide 25 mmol/L (20-31); Chloride 106 mmol/L (98-107); Potassium 3.7 mmol/L (3.5-5.1); Sodium 138 mmol/L (136-145)
[2024-09-04 04:37] LABS: Calcium 8.8 mg/dL (8.7-10.4)
[2024-09-04 04:42] LABS: BUN/Creatinine Ratio 25.5 (10.0-20.0)
[2024-09-04 04:44] LABS: Blood Urea Nitrogen 25 mg/dL (9-23); Glucose 107 mg/dL (74-106)
--- NOTE | 2024-09-04 05:46 | DVH ---
EXAM: XR Chest, 1 View CLINICAL INDICATION: CHF TECHNIQUE: Frontal view of the chest. COMPARISON: XY CHEST PORTABLE on DOS: 09/03/24, XY CHEST PORTABLE on DOS: 09/02/24, XY CHEST PORTABLE on DOS: 09/02/24, XY CHEST PORTABLE on DOS: 05/26/24, XY CHEST PORTABLE on DOS: 02/26/24 FINDINGS: LUNGS AND PLEURAL SPACES: Mild congestive heart failure. No consolidation. No pneumothorax. HEART: Unremarkable. No cardiomegaly. MEDIASTINUM: Unremarkable. Normal mediastinal contour. BONES/JOINTS: Unremarkable. No acute fracture. TUBES, LINES AND DEVICES: Right internal jugular central venous catheter tip in the superior vena c lacie. OTHER FINDINGS: . IMPRESSION: Mild congestive heart failure.
--- NOTE | 2024-09-04 09:11 | DVHPN2 ---
Subjective Patient was states that she was feeling better. Continues to have left flank pain. Reviewed: Care Plan, H&P, Labs, Medications, Previous Orders Changes from previous H/P or p: Changes General: Per HPI Eyes: No Pain, No Vision change, No Conjunctivae inflammation, No Eyelid inflammation, No Other, No Redness ENT: No Ear pain, No Ear discharge, No Nose pain, No Nose discharge, No Nose congestion, No Mouth pain, No Mouth swelling, No Throat pain, No Throat swelling, No Other Cardiovascular: No Chest Pain, No Palpitations, No Orthopnea, No Paroxysmal Noc. Dyspnea, No Edema, No Lt Headedness, No Other Respiratory: No Cough, No Dry, No Shortness of breath, No SOB with excertion, No Wheezing, No Hemoptysis, No Pleuritic Pain, No Sputum, No Other Gastrointestinal: No Nausea, No Vomiting; Abdominal Pain; No Diarrhea, No Constipation, No Melena, No Hematochezia, No Other Genitourinary: Dysuria; No Frequency, No Incontinence, No Hematuria, No Retention; Other (Difficulty urinating) Musculoskeletal: No other, No neck pain, No shoulder pain, No arm pain, No back pain, No hand pain, No leg pain, No foot pain Skin: No Rash, No Lesions, No Jaundice, No Bruising, No Other Objective Vitals Vital Signs Date Time Temp Pulse Resp B/P (MAP) Pulse Ox O2 Delivery O2 Flow Rate FiO2 09/04/24 06:45 87 19 150/73 (98) 100 09/04/24 06:00 Nasal Cannula* 2 28 09/04/24 04:15 98.3 98.3 Intake/Output Intake and Output 09/04/24 07:00 Intake Total 1201 ml Output Total 2750 ml Balance -1549 ml Intake Oral 600 ml IV Total 601 ml Output Urine Total 2250 ml Other 500 ml General Appearance: Alert, Oriented X3, Cooperative, mild distress HEENT: Atraumatic, PERRLA Cardiovascular: Normal S1, Normal S2 Abdomen: Normal bowel sounds, Soft, No tenderness Genitourinary: Other (Left nephrostomy tube now with pink tinged urine.) Musculoskeletal: Normal sensory function, Normal motor function Neuro: Sensation intact, Cranial nerves 3-12 NL Skin: Dry, Intact, Warm Psych/Mental Status: Mental status NL, Mood NL Medications Current Medications Medications Dose Ordered Sig/Pat Route Start Time Stop Time Status Last Admin Dose Admin Acetaminophen/ Hydrocodone Bitart 1 tab Q4HP PRN PO 09/01/24 10:15 09/04/24 00:55 1 TAB Ondansetron HCl 4 mg Q4HP PRN IV 09/01/24 10:15 Docusate Sodium 100 mg BIDPRN PRN PO 09/01/24 10:15 Acetaminophen 650 mg Q6HP PRN PO 09/01/24 10:15 09/02/24 00:19 650 MG Tamsulosin HCl 0.4 mg QPM PO 09/02/24 18:00 09/03/24 19:20 0.4 MG Levothyroxine Sodium 88 mcg DAILY PO 09/02/24 10:00 09/03/24 10:15 88 MCG Pravastatin Sodium 20 mg DAILY PO 09/02/24 10:00 09/03/24 10:15 20 MG Celecoxib 200 mg DAILY PO 09/02/24 10:00 Hold Topiramate 50 mg BID PO 09/01/24 22:00 09/03/24 21:17 50 MG Ipratropium [place] 0.5 mg Q4HPRN PRN NEB 09/02/24 09:30 09/03/24 14:24 0.5 MG Albuterol 2.5 mg Q4HPRN PRN NEB 09/02/24 09:30 09/03/24 14:24 2.5 MG Norepinephrine Bitartrate 250 ml @ 3.75 mls/hr Q24H IV 09/02/24 10:00 09/02/24 11:40 3.75 MLS/HR Morphine Sulfate 2 mg Q4HPRN PRN IV 09/03/24 09:30 09/03/24 21:15 2 MG Meropenem 50 ml @ 17 mls/hr Q12H IV 09/04/24 02:00 09/04/24 01:28 17 MLS/HR Laboratory Results Laboratory Tests 09/04/24 03:00 Chemistry Test 09/04/24 03:00 Calcium Level 8.8 mg/dL (8.7-10.4) Urinalysis Test 09/01/24 08:33 Urine Color Yellow (Yellow) Urine Clarity Cloudy (Clear) H Urine pH 6.0 (5.0-9.0) Urine Specific [place] 1.010 (1.001-1.035) Urine Protein 1+ (Negative) H Urine Ketones Negative (Negative) Urine Blood 2+ /uL (Negative) H Urine Nitrite 2+ (Negative) H Urine Bilirubin Negative (Negative) Urine Urobilinogen Normal mg/dL (Negative) Urine Leukocyte Esterase 3+ /uL (Negative) Urine RBC 24 /hpf (0 - 4) Urine WBC Clumps Present /hpf (None Seen) Urine Microscopic WBC 3327 /HPF (0-5) H Urine Squamous Epithelial Cells None seen /hpf (<5) Urine Bacteria Few /hpf (None Seen) H Urine Sodium 49 mmol/L (40-220) Urine Glucose Normal mg/dL (Normal) Blood Gas Results Test 09/03/24 09:20 FiO2 % 32.0 Microbiology Microbiology Date/Time Source Procedure Growth Status 09/03/24 16:38 Urine - [place] Urine Culture - Preliminary Resulted 09/02/24 22:32 Nose MRSA Screen - Final Complete 09/02/24 18:50 Blood Blood Culture - Preliminary NO GROWTH AFTER 24 HOURS OF INCUBATION. Resulted 09/02/24 10:25 Aspirate Gram Stain - Final Resulted 09/02/24 10:25 Aspirate Body Fluid Culture - Preliminary Resulted Labs and/or images reviewed: Labs reviewed by me, Image(s) reviewed by me Assessment/Plan Assessment/Plan Impression: -septic shock -complicated cystitis -hypothyroidism -chronic systolic heart failure -acute hypoxic respiratory failure -questionable renal abscess -primary hypertension -acute kidney injury, vasomotor nephropathy Plan: -events: Renal function improving. White blood cell count improving. Patient now hypertensive. -start labetalol 100 mg p.o. b.i.d. -continue Merrem panel -cultures pending -gentle diuresis -PUD, DVT prophylaxis -echocardiogram results pending -repeat labs and chest x-ray in a.m. -transfer to Medical/Surgical unit Total time spent with patient discussing and formulating plan of care: 35 minutes. This medical document was created using an electronic medical record system with [employer] dictation system. Although this document has been carefully reviewed, there may still be some phonetic and typographical errors. These areas are purely typographical due to imperfections of the software programs, and do not reflect any compromise in the patient's medical care. Plan discussed with: Patient, Other (RN) My Orders Orders - CJ HOUGH NP Procedure Category Date Status Time Morphine Sulfate PHA 09/03/24 In Process Injection 09:30 Communication Order ORDERS 09/03/24 Transmitted 10:06 Urine Bacterial JACIEL 09/03/24 In Process Culture 10:06 Meropenem 1gm Ivpb PHA 09/04/24 In Process (Merrem 1gm/ Ns) 02:00 Pt Request For Service PT 09/04/24 Logged 09:01 Transfer Orders XFER 09/04/24 Transmitted 09:01 Enoxaparin Sodium PHA 09/04/24 Logged (Lovenox) 09:15 Date of Service: Sep 04, 2024 Billing Provider: CJ HOUGH NP Common Visit Codes: [id number] INP/OBS CARE(HIGH) CJ HOUGH NP Sep 04, 2024 09:11
[2024-09-04] MEDS: FUROSEMIDE 20 MG TAB PO ONE (09:56)
[2024-09-04] MEDS: ENOXAPARIN SOD 40 MG/0.4 ML SYRINGE SC ONE (09:56)
[2024-09-04] MEDS: DOCUSATE SOD 100 MG CAP PO PRN (09:57)
[2024-09-04] MEDS: LABETALOL HCL 200 MG TAB PO SCH (12:19)
[2024-09-04] MEDS ORDERED: ALBUTEROL SULF HFA 90MCG INH 200DOSE IN PRN (18:15)
[2024-09-05] VITALS (14 sets, daily range): BP systolic 131–152; BP diastolic 61–76; PULSE 80–88; RESP 15–22; TEMP 97.8–98.5; O2SAT 97–100
[2024-09-05 05:29] LABS: Basophils # (auto) 0 10 ^3/uL (0-0.2); Basophils % (auto) 0.3 % (0.0-2.0); Eosinophils # (auto) 0.2 10 ^3/uL (0-0.8); Eosinophils % (auto) 3.4 % (0.0-7.0); Hematocrit 27.5 % (36.0-46.0); Lymphocytes # (auto) 1.2 10 ^3/uL (0.4-5.4); Lymphocytes % (auto) 18.6 % (10.0-50.0); Mean Corpuscular Hemoglobin 30.7 pg (28.0-32.0); Mean Corpuscular Hgb Conc. 32.8 g/dL (32.0-36.0); Mean Corpuscular Volume 93.5 fL (80.0-100.0); Monocytes # (auto) 0.5 10 ^3/uL (0-1.3); Monocytes % (auto) 7.2 % (0.0-12.0); Neutrophils # (auto) 4.5 10 ^3/uL (1.6-8.6); Neutrophils % (auto) 70.5 % (37.0-80.0); Nucleated Red Blood Cells % 0.1 %; Platelet Count (auto) 213 10^3/uL (140-450); Red Blood Cells 2.94 10^6/uL (4.0-5.20); Red Cell Distribution Width 17.6 % (11.8-14.3); White Blood Cell 6.5 10^3/uL (4.4-10.8)
[2024-09-05 05:36] LABS: Chloride 105 mmol/L (98-107); Sodium 137 mmol/L (136-145)
[2024-09-05 05:37] LABS: Anion Gap 8 (5-15); Calcium 9.4 mg/dL (8.7-10.4); Carbon Dioxide 24 mmol/L (20-31)
[2024-09-05 05:42] LABS: BUN/Creatinine Ratio 24.2 (10.0-20.0); Blood Urea Nitrogen 22 mg/dL (9-23); Glucose 96 mg/dL (74-106)
--- NOTE | 2024-09-05 14:53 | DVHSR ---
APPROVED REPORT EXAM: Two-dimensional and M-mode echocardiogram with Doppler and color Doppler. Blood Pressure: 105/37 mmHg INDICATION Shock RISK FACTORS Height: 5'2", Weight: 148 DIMENSIONS LVDd5.4 (3.8-5.7cm)LA (2D)4.1 (1.9-4.0cm)Aortic Root2.9 (2.0-3.7cm) LVDs3.4 (2.5-4.0cm)LA (MM) (1.9-4.0cm)Aortic Cusp Exc1.6 (1.5-2.0cm) EF (%) 66.0 (55-70%)Rt. Atrium3.5 (1.9-4.0cm)Asc. Aorta3.0 cm IVSd1.0 (0.7-1.1cm)RV (D) (1.8-2.4cm) PWd1.0 (0.7-1.1cm) Mitral Valve MitralMitral Stenosis E wave0.98m/sMV Mean GR.mmHg A wave0.85m/sMV Peak GR.mmHg E/A ratio1.22D MVAcm2 DECEL [id number] 1/2 [place] Aortic Valve Aortic ValveAortic Stenosis V11.12m/Ara Mean GR.9mmHg V22.08m/Ara Peak GR.17mmHg LVOT Diameter2.0 (1.8-2.4cm)Doppler AVA1.69cm2 Pulmonic Valve V21.05m/s Tricuspid Valve TR Velocity2.73m/s [id number] Other Information Quality : Technically LimitedRhythm : Technically limited study due to body habitus. Conclusion Sinus rhythm. Left atrial enlargement. Mild concentric LVH. Valves are normal. EF of 60% with normal RV function. Moderate mitral insufficiency. Mild tricuspid regurgitation. No pericardial effusion masses or vegetations.
--- NOTE | 2024-09-05 15:35 | DVHPN2 ---
Subjective Denies any new symptoms Reviewed: Care Plan, H&P, Labs, Medications, Previous Orders Changes from previous H/P or p: Changes General: Per HPI Eyes: No Pain, No Vision change, No Conjunctivae inflammation, No Eyelid inflammation, No Other, No Redness ENT: No Ear pain, No Ear discharge, No Nose pain, No Nose discharge, No Nose congestion, No Mouth pain, No Mouth swelling, No Throat pain, No Throat swelling, No Other Cardiovascular: No Chest Pain, No Palpitations, No Orthopnea, No Paroxysmal Noc. Dyspnea, No Edema, No Lt Headedness, No Other Respiratory: No Cough, No Dry, No Shortness of breath, No SOB with excertion, No Wheezing, No Hemoptysis, No Pleuritic Pain, No Sputum, No Other Gastrointestinal: No Nausea, No Vomiting; Abdominal Pain; No Diarrhea, No Constipation, No Melena, No Hematochezia, No Other Genitourinary: Dysuria; No Frequency, No Incontinence, No Hematuria, No Retention; Other (Difficulty urinating) Musculoskeletal: No other, No neck pain, No shoulder pain, No arm pain, No back pain, No hand pain, No leg pain, No foot pain Skin: No Rash, No Lesions, No Jaundice, No Bruising, No Other Objective Vitals Vital Signs Date Time Temp Pulse Resp B/P (MAP) Pulse Ox O2 Delivery O2 Flow Rate FiO2 09/05/24 13:34 82 16 144/76 97 3.0 32 09/05/24 13:00 98.4 98.4 09/05/24 10:04 Nasal Cannula Intake/Output Intake and Output 09/05/24 07:00 Intake Total 1100 ml Output Total 200 ml Balance 900 ml Intake Oral 1000 ml IV Total 100 ml Output Urine Total 200 ml Stool Total 0 ml General Appearance: Alert, Oriented X3, Cooperative, mild distress HEENT: Atraumatic, PERRLA Cardiovascular: Normal S1, Normal S2 Abdomen: Normal bowel sounds, Soft, No tenderness Genitourinary: Other (Left nephrostomy tube now with pink tinged urine.) Musculoskeletal: Normal sensory function, Normal motor function Neuro: Sensation intact, Cranial nerves 3-12 NL Skin: Dry, Intact, Warm Psych/Mental Status: Mental status NL, Mood NL Medications Current Medications Medications Dose Ordered Sig/Pat Route Start Time Stop Time Status Last Admin Dose Admin Acetaminophen/ Hydrocodone Bitart 1 tab Q4HP PRN PO 09/01/24 10:15 09/05/24 09:05 1 TAB Ondansetron HCl 4 mg Q4HP PRN IV 09/01/24 10:15 Docusate Sodium 100 mg BIDPRN PRN PO 09/01/24 10:15 09/04/24 09:57 100 MG Acetaminophen 650 mg Q6HP PRN PO 09/01/24 10:15 09/02/24 00:19 650 MG Tamsulosin HCl 0.4 mg QPM PO 09/02/24 18:00 09/04/24 17:47 0.4 MG Levothyroxine Sodium 88 mcg DAILY PO 09/02/24 10:00 09/05/24 09:03 88 MCG Pravastatin Sodium 20 mg DAILY PO 09/02/24 10:00 09/05/24 09:06 20 MG Celecoxib 200 mg DAILY PO 09/02/24 10:00 Hold Topiramate 50 mg BID PO 09/01/24 22:00 09/05/24 09:05 50 MG Ipratropium [place] 0.5 mg Q4HPRN PRN NEB 09/02/24 09:30 09/05/24 06:03 0.5 MG Albuterol 2.5 mg Q4HPRN PRN NEB 09/02/24 09:30 09/05/24 06:03 2.5 MG Morphine Sulfate 2 mg Q4HPRN PRN IV 09/03/24 09:30 09/04/24 12:56 2 MG Meropenem 50 ml @ 17 mls/hr Q12H IV 09/04/24 02:00 09/05/24 13:47 17 MLS/HR Labetalol HCl 100 mg Q12HR PO 09/04/24 10:00 09/05/24 09:04 100 MG Albuterol 180 mcg Q6HP PRN IN 09/04/24 18:15 Cancel Laboratory Results Laboratory Tests 09/05/24 05:03 Chemistry Test 09/05/24 05:03 Calcium Level 9.4 mg/dL (8.7-10.4) Urinalysis Test 09/01/24 08:33 Urine Color Yellow (Yellow) Urine Clarity Cloudy (Clear) H Urine pH 6.0 (5.0-9.0) Urine Specific [place] 1.010 (1.001-1.035) Urine Protein 1+ (Negative) H Urine Ketones Negative (Negative) Urine Blood 2+ /uL (Negative) H Urine Nitrite 2+ (Negative) H Urine Bilirubin Negative (Negative) Urine Urobilinogen Normal mg/dL (Negative) Urine Leukocyte Esterase 3+ /uL (Negative) Urine RBC 24 /hpf (0 - 4) Urine WBC Clumps Present /hpf (None Seen) Urine Microscopic WBC 3327 /HPF (0-5) H Urine Squamous Epithelial Cells None seen /hpf (<5) Urine Bacteria Few /hpf (None Seen) H Urine Sodium 49 mmol/L (40-220) Urine Glucose Normal mg/dL (Normal) Microbiology Microbiology Date/Time Source Procedure Growth Status 09/03/24 16:38 Urine - [place] Urine Culture - Preliminary Resulted 09/02/24 22:32 Nose MRSA Screen - Final Complete 09/02/24 18:50 Blood Blood Culture - Preliminary NO GROWTH AFTER 48 HOURS OF INCUBATION. Resulted 09/02/24 10:25 Aspirate Gram Stain - Final Complete 09/02/24 10:25 Body Fluid Culture - Final Escherichia coli Complete Labs and/or images reviewed: Labs reviewed by me, Image(s) reviewed by me Assessment/Plan Assessment/Plan Impression: -septic shock -complicated cystitis -hypothyroidism -chronic systolic heart failure -acute hypoxic respiratory failure -questionable renal abscess -primary hypertension -acute kidney injury, vasomotor nephropathy Plan: -events: Renal function improving. White blood cell count normal. Ambulating 25ft. -start labetalol 100 mg p.o. b.i.d. -Urine with e coli. De-escalate abx. -Urology consult: ? lithotripsy as in patient -Physical therapy -Pain management -Repeat CT scan Total time spent with patient discussing and formulating plan of care: 35 minutes. This medical document was created using an electronic medical record system with [employer] dictation system. Although this document has been carefully reviewed, there may still be some phonetic and typographical errors. These areas are purely typographical due to imperfections of the software programs, and do not reflect any compromise in the patient's medical care. Plan discussed with: Patient, Other (RN ) Date of Service: Sep 05, 2024 Billing Provider: CJ HOUGH NP Common Visit Codes: [id number] INP/OBS CARE(HIGH) CJ HOUGH CAD SPECIALIST Sep 05, 2024 15:35
--- NOTE | 2024-09-05 16:43 | DVH ---
Exam: CT CT AB PEL WO CON-NO ORAL OR IV History: Reassess Left hydro, renal calculi Comparison Study: 09/01/2024 TECHNIQUE: Multidetector CT of the abdomen and pelvis without contrast. Axial, coronal and sagittal m ultiplanar reformats were obtained from the axial data set by the technologist. Radiation Dose Information: CT Dose: CTDI volume is 13.48 mGy. Dose-length product is 637.39 mGy*cm FINDINGS: Trace bilateral pleural effusion with bibasilar atelectasis. Partially visualized heart is normal in size. Trace pericardial effusion. Status post cholecystectomy. Liver, spleen, pancreas and adrenal glands unremarkable. Interval placement of a left-sided percutaneous nephrostomy stent terminating over the lower pole of the left kidney. Interval resolution of the left-sided hydronephrosis. 0.5 x 0.4 cm obstructing calcu yoan within the left proximal ureter. Redemonstration of 2 mm nonobstructing right renal lower pole calculus. Mild right pelviectasis. Mild nonspecific bilateral perirenal fat stranding. Urinary bladder is decompressed with [place] catheter i n place. Focus of air within the nondependent portion of the urinary bladder which is most likely iat rogenic. Small hiatal hernia. Stomach is unremarkable. Small bowel loops are unremarkable. Appendix is unremar kable. Two 8 mm hyperdensities are noted within the cecum which may represent ingested material with fecaliths not excluded. Colonic diverticulosis without diverticulitis. Moderate to large amount of f ecal material within the colon. No evidence of intraperitoneal free air or free fluid. No evidence of aortic aneurysm. Moderate atherosclerotic calcification of the aorta. Slightly prominent left-sided para-aortic lymph node at the level of the left kidney measuring up to 1 cm which may be reactive. Calcified granulomas of the right gluteal region with nonspecific calcifications of the right lateral hip soft tissues. Mild soft tissue edema. Left-sided small fat containing periumbilical hernia. Prio r Postsurgical changes of the ventral mid to lower abdomen. Streak artifact from right total hip repl acement limits evaluation of the adjacent structures. Diffuse demineralization. [id number] dege nerative changes of the lumbar spine. Chronic fracture deformity of the right iliac bone. IMPRESSION: Interval placement of a left-sided percutaneous nephrostomy tube which is looped over the ureteropelv ic junction with the tip projected over the lower pole of the left kidney. Interval resolution of the left-sided hydronephrosis. 5 x 4 mm obstructing calculus over the left proximal ureter ; relatively unchanged in position from p rior imaging. Additional findings as above.
[2024-09-06] VITALS (15 sets, daily range): BP systolic 132–151; BP diastolic 49–74; PULSE 73–91; RESP 16–20; TEMP 97.9–99.1; O2SAT 96–99
[2024-09-06 00:09] LABS: Urine Bacteria FEW /hpf (None Seen); Urine Blood 3+ /uL (Negative); Urine Clarity Clear (Clear); Urine Color Colorless (Yellow); Urine Protein, UAD 1+ (Negative); Urine Specific Gravity 1.004 (1.001-1.035); Urine Squamous Epithelial Cell None Seen /hpf (<5); Urine Urobilinogen Normal (Negative); Urine WBC 8 /HPF (0-5)
[2024-09-06 07:43] LABS: Basophils # (auto) 0 10 ^3/uL (0-0.2); Basophils % (auto) 0.4 % (0.0-2.0); Eosinophils # (auto) 0.3 10 ^3/uL (0-0.8); Eosinophils % (auto) 3.6 % (0.0-7.0); Hematocrit 27.8 % (36.0-46.0); Hemoglobin 9.3 g/dL (12.2-16.2); Lymphocytes # (auto) 1.6 10 ^3/uL (0.4-5.4); Lymphocytes % (auto) 21.8 % (10.0-50.0); Mean Corpuscular Hemoglobin 30.9 pg (28.0-32.0); Mean Corpuscular Hgb Conc. 33.3 g/dL (32.0-36.0); Mean Corpuscular Volume 92.7 fL (80.0-100.0); Monocytes # (auto) 0.7 10 ^3/uL (0-1.3); Monocytes % (auto) 10.2 % (0.0-12.0); Neutrophils # (auto) 4.6 10 ^3/uL (1.6-8.6); Nucleated Red Blood Cells % 0.2 %; Platelet Count (auto) 255 10^3/uL (140-450); Red Cell Distribution Width 17.6 % (11.8-14.3); White Blood Cell 7.2 10^3/uL (4.4-10.8)
[2024-09-06 07:57] LABS: Anion Gap 9 (5-15); Carbon Dioxide 24 mmol/L (20-31); Chloride 103 mmol/L (98-107); Potassium 4.1 mmol/L (3.5-5.1)
[2024-09-06 07:58] LABS: Sodium 136 mmol/L (136-145)
[2024-09-06 07:59] LABS: Calcium 9.4 mg/dL (8.7-10.4)
[2024-09-06 08:03] LABS: Glucose 93 mg/dL (74-106)
[2024-09-06 08:04] LABS: BUN/Creatinine Ratio 21.3 (10.0-20.0); Blood Urea Nitrogen 20 mg/dL (9-23)
--- NOTE | 2024-09-06 16:21 | DVHDS2 ---
Discharge Summary Date of Admission Sep 01, 2024 at 10:13 Date of Discharge: Sep 06, 2024 Admitting Diagnosis Obstructive uropathy Labs/Diagnostic Data: Laboratory Results Test 09/06/24 06:13 09/05/24 10:50 09/03/24 17:55 09/03/24 09:20 White Blood Count 7.2 10^3/uL (4.4-10.8) Red Blood Count 3.00 10^6/uL (4.0-5.20) Hemoglobin 9.3 g/dL (12.2-16.2) Hematocrit 27.8 % (36.0-46.0) Mean Corpuscular Volume 92.7 fL (80.0-100.0) Mean Corpuscular Hemoglobin 30.9 pg (28.0-32.0) Mean Corpuscular Hemoglobin Concent 33.3 g/dL (32.0-36.0) Red Cell Distribution Width 17.6 % (11.8-14.3) Platelet Count 255 10^3/uL (140-450) Mean Platelet Volume 7.3 fL (6.9-10.8) Neutrophils (%) (Auto) 64.0 % (37.0-80.0) Lymphocytes (%) (Auto) 21.8 % (10.0-50.0) Monocytes (%) (Auto) 10.2 % (0.0-12.0) Eosinophils (%) (Auto) 3.6 % (0.0-7.0) Basophils (%) (Auto) 0.4 % (0.0-2.0) Neutrophils # (Auto) 4.6 10 ^3/uL (1.6-8.6) Lymphocytes # (Auto) 1.6 10 ^3/uL (0.4-5.4) Monocytes # (Auto) 0.7 10 ^3/uL (0-1.3) Eosinophils # (Auto) 0.3 10 ^3/uL (0-0.8) Basophils # (Auto) 0 10 ^3/uL (0-0.2) Nucleated Red Blood Cells 0.2 % Sodium Level 136 mmol/L (136-145) Potassium Level 4.1 mmol/L (3.5-5.1) Chloride Level 103 mmol/L (98-107) Carbon Dioxide Level 24 mmol/L (20-31) Anion Gap 9 (5-15) Blood Urea Nitrogen 20 mg/dL (9-23) Creatinine 0.94 mg/dL (0.550-1.02) Glomerular Filtration Rate Calc 62 mL/min (>90) BUN/Creatinine Ratio 21.3 (10.0-20.0) Serum Glucose 93 mg/dL (74-106) Calcium Level 9.4 mg/dL (8.7-10.4) Urine Color Colorless (Yellow) Urine Clarity Clear (Clear) Urine pH 7.0 (5.0-9.0) Urine Specific [place] 1.004 (1.001-1.035) Urine Protein 1+ (Negative) Urine Ketones Negative (Negative) Urine Blood 3+ /uL (Negative) Urine Nitrite Negative (Negative) Urine Bilirubin Negative (Negative) Urine Urobilinogen Normal mg/dL (Negative) Urine Leukocyte Esterase 3+ /uL (Negative) Urine RBC 20 /hpf (0 - 4) Urine Microscopic WBC 8 /HPF (0-5) Urine Squamous Epithelial Cells None seen /hpf (<5) Urine Bacteria Few /hpf (None Seen) Urine Glucose Normal mg/dL (Normal) POC Glucose 122 mg/dl (70-106) Blood Gas Specimen Type Venous Blood Gas Sample Site Vbg - n/a Blood Gas Patient Temperature 37.0 Arterial Blood Date Drawn [id number] [place] Test N/a Venous Blood pH 7.458 (7.320-7.430) Venous Blood pCO2 at Patient Temp 32.3 mmHg (38.0-54.0) Venous Blood pO2 at Patient Temp < 36.5 mmHg (23.0-48.0) Venous Blood HCO3 22.4 mmol/L (22.0-29.0) Venous Blood Base Excess -0.6 mmol/L (-2.0-3.0) Blood Gas Liter Flow 3.00 Blood Gas Modality Nasal cannula FiO2 % 32.0 Test 09/03/24 03:00 09/02/24 06:25 09/01/24 14:28 09/01/24 08:33 Total Bilirubin 0.3 mg/dL (0.2-1.0) Aspartate Amino Transferase (AST) 28 U/L (13-40) Alanine Aminotransferase (ALT) 42 U/L (7-40) Alkaline Phosphatase 148 U/L (46-116) Total Protein 5.6 g/dL (5.7-8.2) Albumin 3.1 g/dL (3.2-4.8) Differential Total Cells Counted 100.0 (100) Neutrophils % (Manual) 72 (37.0-80.0) Band Neutrophils % (Manual) 17 Lymphocytes % (Manual) 8 (10.0-50.0) Monocytes % (Manual) 3 (0-12) Eosinophils % (Manual) 0 (0-7) Basophils % (Manual) 0 (0.0-2.0) Metamyelocytes % (manual) 0 Myelocytes % (Manual) 0 Promyelocytes % (Manual) 0 Blast Cells % (Manual) 0 Reactive Lymphocytes 0 Platelet Estimate Adequate Prothrombin Time 11.2 sec (9.3-11.8) Prothrombin Time INR 1.06 (0.9-1.15) Urine WBC Clumps Present /hpf (None Seen) Urine Sodium 49 mmol/L (40-220) Test 08/31/24 22:53 08/31/24 21:43 Influenza Type A Antigen Negative (Negative) Influenza Type B Antigen Negative (Negative) SARS-CoV-2 Antigen (Rapid) Negative (NEGATIVE) Troponin I High Sensitivity 14 ng/L (</=34) Thyroid Stimulating Hormone (TSH) 0.20 uIU/mL (0.55-4.78) Other Laboratory Tests 09/06/24 06:13 Brief Hx & Hospital Course: History of Present Illness Jazmín Villalba is a 79-year-old female with past medical history of CHF, asthma, hypertension, A-fib, COPD, hyperlipidemia, and hypothyroidism, who came to the hospital S/P fall. Patient states she usually lives with her caregiver, however her caregiver is out of town for a few days and is staying with her brother. She states she got up to go to the bathroom without asking for help and fell landing on her left side prompting her to come to the ER. While in the ER she complained of left sided pain to her shoulder, knee, head, and abdomen. On assessment the greatest pain that she complains of is her left side of abdomen that radiates to left flank. CT of abdomen was ordered and showed bilateral renal calculi, with obstruction in her left ureter causing hydroureteronephrosis. Patient complains of difficulty urinating, and straining to urinate. Course of hospitalization: Urology consultation was placed. Patient was started on empiric IV antibiotic therapy. Patient went to [facility] for interventional radiology placement of a nephrostomy tube. Patient had pustulant drainage noted. Patient had worsening shock despite appropriate IV resuscitation. Patient had central line placed as well as initiation of norepinephrine drip. Patient's shock has improved. Urine is positive for E coli. Discussion was made with urology regarding persistent obstructive uropathy as noted on repeat CT scan. Plans for lithotripsy later next week for complete treatment of complicated cystitis. Patient continues to have deconditioning. Patient was agreeable to be transferred to [facility]acute [facility] for IV antibiotic therapy as well as physical therapy. At a later time, patient will be brought back for procedure. Physical examination General: Alert and Oriented x3. No acute distress. Well-nourished. Eyes: EOMI. Anicteric. HENT: Moist mucous membranes. Lungs: Clear to auscultation bilaterally. No accessory muscle use. Cardiovascular: Regular rate and rhythm. No murmur. No JVD. Abdomen: Soft, non-tender and non-distended. No palpable masses. Extremities: No edema. Non-tender. Skin: No rashes or lesions. Warm. Neurologic: No focal neurological deficits. CN II-XII grossly intact, but not individually tested. Psychiatric: Cooperative. Appropriate mood and affect. Total time spent with patient discussing and formulating plan of care: 35 minutes. This medical document was created using an electronic medical record system with [employer] dictation system. Although this document has been carefully reviewed, there may still be some phonetic and typographical errors. These areas are purely typographical due to imperfections of the software programs, and do not reflect any compromise in the patient's medical care. Condition at Discharge: Guarded Final Diagnosis/Problems List Septic shock secondary to complicated cystitis Secondary diagnosis: -septic shock -complicated cystitis -hypothyroidism -chronic systolic heart failure -acute hypoxic respiratory failure -questionable renal abscess -primary hypertension -acute kidney injury, vasomotor nephropathy Discharge Disposition: Assisted Facility Discharge Instruct/Medications Diet: Regular Activity: No Restrictions, As Tolerated Follow Up/Referral: Follow up with Urology for lithotripsy Medications: Refer to medication reconciliation form 36 Discharge Statement: "Patient was advised to return to the ER or call 911 if any headaches, dizziness, shortness of breath, chest pain, abdominal pain, bleeding, fevers, or worsening of medical condition. Patient was counseled about treatment plan, medications, possible side effects, patientverbalized understanding. All questions were answered to the best of my ability. This discharge took greater then 30 minutes in planning, reviewing documentation, counseling the patient, and discussing with other team members." ASSESSMENT ASSESSMENT Assessment Septic shock secondary to complicated cystitis Date of Service: Sep 06, 2024 Billing Provider: CJ HOUGH NP Common Visit Codes: [id number] DISCH DAY >30min CJ HOUGH NP Sep 06, 2024 16:21
[2024-09-06] MEDS: CALCIUM CARB 500 MG CHEW TAB PO SCH (17:32)
[2024-09-06] MEDS: PANTOPRAZOLE 40 MG TAB PO SCH (17:32)
[2024-09-07] VITALS (12 sets, daily range): BP systolic 118–146; BP diastolic 51–83; PULSE 66–89; RESP 12–18; TEMP 97.8–98.9; O2SAT 98–100
--- NOTE | 2024-09-07 13:08 | DVHPN2 ---
Subjective Denies any new symptoms Reviewed: Care Plan, H&P, Labs, Medications, Previous Orders Changes from previous H/P or p: No Changes General: Per HPI Eyes: No Pain, No Vision change, No Conjunctivae inflammation, No Eyelid inflammation, No Other, No Redness ENT: No Ear pain, No Ear discharge, No Nose pain, No Nose discharge, No Nose congestion, No Mouth pain, No Mouth swelling, No Throat pain, No Throat swelling, No Other Cardiovascular: No Chest Pain, No Palpitations, No Orthopnea, No Paroxysmal Noc. Dyspnea, No Edema, No Lt Headedness, No Other Respiratory: No Cough, No Dry, No Shortness of breath, No SOB with excertion, No Wheezing, No Hemoptysis, No Pleuritic Pain, No Sputum, No Other Gastrointestinal: No Nausea, No Vomiting; Abdominal Pain; No Diarrhea, No Constipation, No Melena, No Hematochezia, No Other Genitourinary: Dysuria; No Frequency, No Incontinence, No Hematuria, No Retention; Other (Difficulty urinating) Musculoskeletal: No other, No neck pain, No shoulder pain, No arm pain, No back pain, No hand pain, No leg pain, No foot pain Skin: No Rash, No Lesions, No Jaundice, No Bruising, No Other Objective Vitals Vital Signs Date Time Temp Pulse Resp B/P (MAP) Pulse Ox O2 Delivery O2 Flow Rate FiO2 09/07/24 12:09 84 17 112/45 09/07/24 09:00 97.8 99 97.8 09/07/24 08:19 Nasal Cannula* 3 32 Intake/Output Intake and Output 09/07/24 07:00 Intake Total 1584 ml Output Total 1675 ml Balance -91 ml Intake Oral 1534 ml IV Total 50 ml Output Urine Total 1675 ml General Appearance: Alert, Oriented X3, Cooperative, mild distress HEENT: Atraumatic, PERRLA Cardiovascular: Normal S1, Normal S2 Abdomen: Normal bowel sounds, Soft, No tenderness Genitourinary: Other (Left nephrostomy tube now with pink tinged urine.) Musculoskeletal: Normal sensory function, Normal motor function Neuro: Sensation intact, Cranial nerves 3-12 NL Skin: Dry, Intact, Warm Psych/Mental Status: Mental status NL, Mood NL Medications Current Medications Medications Dose Ordered Sig/Pat Route Start Time Stop Time Status Last Admin Dose Admin Acetaminophen/ Hydrocodone Bitart 1 tab Q4HP PRN PO 09/01/24 10:15 09/07/24 02:20 1 TAB Ondansetron HCl 4 mg Q4HP PRN IV 09/01/24 10:15 Docusate Sodium 100 mg BIDPRN PRN PO 09/01/24 10:15 09/04/24 09:57 100 MG Acetaminophen 650 mg Q6HP PRN PO 09/01/24 10:15 09/02/24 00:19 650 MG Tamsulosin HCl 0.4 mg QPM PO 09/02/24 18:00 09/06/24 17:32 0.4 MG Levothyroxine Sodium 88 mcg DAILY PO 09/02/24 10:00 09/07/24 08:57 88 MCG Pravastatin Sodium 20 mg DAILY PO 09/02/24 10:00 09/07/24 08:56 20 MG Celecoxib 200 mg DAILY PO 09/02/24 10:00 Hold Topiramate 50 mg BID PO 09/01/24 22:00 09/07/24 08:57 50 MG Ipratropium [place] 0.5 mg Q4HPRN PRN NEB 09/02/24 09:30 09/06/24 20:11 0.5 MG Albuterol 2.5 mg Q4HPRN PRN NEB 09/02/24 09:30 09/07/24 08:19 2.5 MG Morphine Sulfate 2 mg Q4HPRN PRN IV 09/03/24 09:30 09/07/24 12:09 2 MG Meropenem 50 ml @ 17 mls/hr Q12H IV 09/04/24 02:00 09/07/24 01:34 17 MLS/HR Labetalol HCl 100 mg Q12HR PO 09/04/24 10:00 09/07/24 08:59 100 MG Albuterol 180 mcg Q6HP PRN IN 09/04/24 18:15 Cancel Pantoprazole Sodium 40 mg DAILY@0600 PO 09/06/24 16:30 09/07/24 05:50 40 MG Calcium Carbonate 500 mg TIDWM PO 09/06/24 18:00 09/07/24 08:56 500 MG Laboratory Results Laboratory Tests 09/06/24 06:13 Urinalysis Test 09/01/24 08:33 09/05/24 10:50 Urine WBC Clumps Present /hpf (None Seen) Urine Sodium 49 mmol/L (40-220) Urine Color Colorless (Yellow) Urine Clarity Clear (Clear) Urine pH 7.0 (5.0-9.0) Urine Specific [place] 1.004 (1.001-1.035) Urine Protein 1+ (Negative) H Urine Ketones Negative (Negative) Urine Blood 3+ /uL (Negative) H Urine Nitrite Negative (Negative) Urine Bilirubin Negative (Negative) Urine Urobilinogen Normal mg/dL (Negative) Urine Leukocyte Esterase 3+ /uL (Negative) Urine RBC 20 /hpf (0 - 4) Urine Microscopic WBC 8 /HPF (0-5) H Urine Squamous Epithelial Cells None seen /hpf (<5) Urine Bacteria Few /hpf (None Seen) H Urine Glucose Normal mg/dL (Normal) Microbiology Microbiology Date/Time Source Procedure Growth Status 09/03/24 16:38 Urine - [place] Urine Culture - Final Complete 09/02/24 22:32 Nose MRSA Screen - Final Complete 09/02/24 18:50 Blood Blood Culture - Preliminary NO GROWTH AFTER 72 HOURS OF INCUBATION. Resulted 09/02/24 10:25 Aspirate Gram Stain - Final Complete 09/02/24 10:25 Body Fluid Culture - Final Escherichia coli Complete Labs and/or images reviewed: Labs reviewed by me, Image(s) reviewed by me Assessment/Plan Assessment/Plan Impression: -septic shock -complicated cystitis -hypothyroidism -chronic systolic heart failure -acute hypoxic respiratory failure -questionable renal abscess -primary hypertension -acute kidney injury, vasomotor nephropathy Plan: Events: Patient discharged yesterday. Pending transfer to sn[facility] facility. -stop meropenem, continue IV Rocephin -continue antihypertensives -Urology consult: Discussed case with Gela Gilliam NP. Patient will have plans for outpatient lithotripsy on Sunday from snf facility. -Physical therapy -Pain management Total time spent with patient discussing and formulating plan of care: 35 minutes. This medical document was created using an electronic medical record system with [employer] system. Although this document has been carefully reviewed, there may still be some phonetic and typographical errors. These areas are purely typographical due to imperfections of the software programs, and do not reflect any compromise in the patient's medical care. Plan discussed with: Patient, Other (RN) My Orders Orders - CJ HOUGH NP Procedure Category Date Status Time * Lens Polisher Hand CONS 09/06/24 Transmitted Consult Discharge DISCHARGE 09/06/24 Transmitted 16:10 Pantoprazole Tablet PHA 09/06/24 In Process (Protonix Tablet) 16:30 Calcium Carbonate PHA 09/06/24 In Process (Tums) 18:00 Ceftriaxone Ivpb PHA 09/07/24 Transmitted Rocephin 16:00 Date of Service: Sep 07, 2024 Billing Provider: CJ HOUGH NP Common Visit Codes: [id number] INP/OBS CARE(HIGH) CJ HOUGH NP Sep 07, 2024 13:08
[2024-09-07] MEDS: cefTRIAXone 1GM/50ML D5W 50 ML IV SCH (17:18)
[2024-09-08] VITALS (7 sets, daily range): BP systolic 120–138; BP diastolic 46–56; PULSE 82–87; RESP 12–20; TEMP 97.7–98.8; O2SAT 97–100
--- NOTE | 2024-09-08 14:32 | CODING ---
Date of Service: Sep 08, 2024 Billing Provider: CJ HOUGH NP Common Visit Codes: [id number] INP/OBS CARE(HIGH) CJ HOUGH NP Sep 08, 2024 14:32
== END 2024-09-08 15:38 | DRG 871 ==
LOC: ER 19:50 → EDBD 19:50 → OVERFLOW 09-01 10:13 → ICU WEST 09-02 19:50 → TELE-WESTW 09-04 17:22 → WEST WING 09-05 06:03
PROVIDERS: ADMIT Nurse Practitioner Acute Care; ATTEND Nurse Practitioner Acute Care
PROC: 0T9430Z Drainage of Left Kidney Pelvis with Drainage Device, Percutaneous Approach (ICD-10-PCS; principal; 2024-09-02)
PROC: BT121ZZ Fluoroscopy of Left Kidney using Low Osmolar Contrast (ICD-10-PCS; 2024-09-02)
PROC: 02HV33Z Insertion of Infusion Device into Superior Vena Cava, Percutaneous Approach (ICD-10-PCS; 2024-09-02)
PROC: B548ZZA Ultrasonography of Superior Vena Cava, Guidance (ICD-10-PCS; 2024-09-02)
DX: A41.9 Sepsis, unspecified organism (principal); J96.01 Acute respiratory failure with hypoxia; N17.0 Acute kidney failure with tubular necrosis; R65.21 Severe sepsis with septic shock; N13.6 Pyonephrosis; N20.2 Calculus of kidney with calculus of ureter; I50.22 Chronic systolic (congestive) heart failure; E87.1 Hypo-osmolality and hyponatremia; Z20.822 Contact with and (suspected) exposure to COVID-19; I11.0 Hypertensive heart disease with heart failure; J44.89 Other specified chronic obstructive pulmonary disease; E78.5 Hyperlipidemia, unspecified; E03.9 Hypothyroidism, unspecified; M19.09 Primary osteoarthritis, other specified site; I48.91 Unspecified atrial fibrillation; M81.0 Age-related osteoporosis without current pathological fracture; G89.29 Other chronic pain; Z85.3 Personal history of malignant neoplasm of breast; Z96.641 Presence of right artificial hip joint; Z88.6 Allergy status to analgesic agent; Z79.1 Long term (current) use of non-steroidal anti-inflammatories (NSAID); Z79.82 Long term (current) use of aspirin; Z79.899 Other long term (current) drug therapy; Z90.12 Acquired absence of left breast and nipple; Z82.49 Family history of ischemic heart disease and other diseases of the circulatory system; Z80.1 Family history of malignant neoplasm of trachea, bronchus and lung
CPT/HCPCS: 36415; 36556; 36600; 50430; 50432; 70450; 71045; 72125; 72131; 74176; 74425; 76942; 80048; 80053; 81001; 82805; 82962; 84300; 84443; 84484; 85007; 85025; 85027; 85610; 87040; 87077; 87081; 87086; 87186; 87205; 87426; 87804; 93306; 94640; 96360; 97110; 97116; 97163; 97530; 99152; G0378; J1885; J2185; J3480; J7060; Q9967

== ENCOUNTER → 2024-10-28 | Outpatient (CLI) | payer MEDICARE, MEDICAID ==
[2024-10-28 12:33] LABS: Urine Bacteria None Seen /hpf (None Seen)
[2024-10-28 12:43] LABS: Basophils # (auto) 0 10 ^3/uL (0-0.2); Basophils % (auto) 0.3 % (0.0-2.0); Eosinophils # (auto) 0.2 10 ^3/uL (0-0.8); Eosinophils % (auto) 1.5 % (0.0-7.0); Hematocrit 28.3 % (36.0-46.0); Hemoglobin 9.4 g/dL (12.2-16.2); Lymphocytes # (auto) 1.3 10 ^3/uL (0.4-5.4); Lymphocytes % (auto) 12.2 % (10.0-50.0); Mean Corpuscular Hemoglobin 27.9 pg (28.0-32.0); Mean Corpuscular Hgb Conc. 33.2 g/dL (32.0-36.0); Mean Corpuscular Volume 84.2 fL (80.0-100.0); Monocytes # (auto) 0.6 10 ^3/uL (0-1.3); Monocytes % (auto) 5.6 % (0.0-12.0); Neutrophils # (auto) 8.4 10 ^3/uL (1.6-8.6); Neutrophils % (auto) 80.4 % (37.0-80.0); Platelet Count (auto) 294 10^3/uL (140-450); Red Blood Cells 3.37 10^6/uL (4.0-5.20); Red Cell Distribution Width 15.1 % (11.8-14.3); White Blood Cell 10.5 10^3/uL (4.4-10.8)
[2024-10-28 13:05] LABS: Urine Blood 2+ /uL (Negative); Urine Budding Yeast OCCASIONAL /hpf (None Seen); Urine Clarity Ex.Turbid (Clear); Urine Color Orange (Yellow); Urine Protein, UAD 1+ (Negative); Urine Specific Gravity 1.023 (1.001-1.035); Urine Squamous Epithelial Cell FEW /hpf (<5); Urine Urobilinogen Normal (Negative); Urine WBC 3418 /HPF (0-5); Urine WBC Clumps PRESENT /hpf (None Seen); Urine pH 5.5 (5.0-9.0)
[2024-10-28 13:08] LABS: Alanine Aminotransferase 17 U/L (7-40); Albumin 4.1 g/dL (3.2-4.8); Alkaline Phosphatase 92 U/L (46-116); Anion Gap 12 (5-15); Aspartate Aminotransferase 15 U/L (13-40); BUN/Creatinine Ratio 22.2 (10.0-20.0); Calcium 10.2 mg/dL (8.7-10.4); Cholesterol 109 mg/dL (< 200); LDL Cholesterol 56 mg/dL (< 100); Potassium 4.2 mmol/L (3.5-5.1); Sodium 139 mmol/L (136-145); Total Protein 7.7 g/dL (5.7-8.2)
[2024-10-28 13:13] LABS: Bilirubin, Total 0.3 mg/dL (0.2-1.0); Blood Urea Nitrogen 30 mg/dL (9-23); Carbon Dioxide 18 mmol/L (20-31); Chloride 109 mmol/L (98-107); Glucose 123 mg/dL (74-106); HDL Cholesterol 27 mg/dL (40-59); Triglycerides 153 mg/dL (< 150)
== END | disposition home or self-care (01) ==
LOC: LAB 12:22
PROVIDERS: ATTEND Student in an Organized Health Care Education/Training Program
DX: I11.0 Hypertensive heart disease with heart failure (principal); I50.9 Heart failure, unspecified; R73.9 Hyperglycemia, unspecified
CPT/HCPCS: 36415; 80053; 80061; 81001; 83036; 84443; 85025

== ENCOUNTER 2024-12-04 12:11 | Outpatient (CLI) | payer MEDICARE, MEDICAID ==
[2024-12-04 13:00] LABS: % Iron Saturation 24.1 % (15-50)
[2024-12-04 13:01] LABS: Alanine Aminotransferase 14 U/L (7-40); Albumin 4.7 g/dL (3.2-4.8); Alkaline Phosphatase 116 U/L (46-116); Anion Gap 11 (5-15); Aspartate Aminotransferase 27 U/L (0-34); BUN/Creatinine Ratio 11.2 (10.0-20.0); Bilirubin, Total 0.3 mg/dL (0.2-1.0); Blood Urea Nitrogen 13 mg/dL (9-23); Carbon Dioxide 23 mmol/L (20-31); Chloride 106 mmol/L (98-107); Glucose 109 mg/dL (74-106); Potassium 4.2 mmol/L (3.5-5.1); Sodium 140 mmol/L (136-145); Total Protein 8.4 g/dL (5.7-8.2)
[2024-12-04 13:03] LABS: Free T3 2.44 pg/mL (2.3-4.2); Free T4 (Free Thyroxine) 1.45 ng/dL (0.89-1.76); T3 Total 0.99 ng/mL (0.60-1.81)
[2024-12-04 13:04] LABS: Ferritin 42.4 ng/mL (10-291)
== END 2024-12-04 17:00 | disposition home or self-care (01) ==
LOC: LAB 12:11
PROVIDERS: ATTEND Student in an Organized Health Care Education/Training Program
DX: N17.9 Acute kidney failure, unspecified (principal); D64.9 Anemia, unspecified; E03.9 Hypothyroidism, unspecified
CPT/HCPCS: 36415; 80053; 82728; 83540; 83550; 84439; 84443; 84480; 84481

== ENCOUNTER 2024-12-16 15:16 | Outpatient (CLI) | payer MEDICARE, MEDICAID ==
[2024-12-16 16:38] LABS: Alanine Aminotransferase 13 U/L (7-40); Albumin 4.4 g/dL (3.2-4.8); Alkaline Phosphatase 116 U/L (46-116); Anion Gap 10 (5-15); Aspartate Aminotransferase 24 U/L (<34); BUN/Creatinine Ratio 11.2 (10.0-20.0); Blood Urea Nitrogen 13 mg/dL (9-23); Calcium 9.4 mg/dL (8.7-10.4); Carbon Dioxide 22 mmol/L (20-31); Glucose 99 mg/dL (74-106); Potassium 4.5 mmol/L (3.5-5.1); Sodium 140 mmol/L (136-145)
[2024-12-16 16:40] LABS: Bilirubin, Total 0.2 mg/dL (0.2-1.0); Chloride 108 mmol/L (98-107)
== END 2024-12-16 17:00 | disposition home or self-care (01) ==
LOC: LAB 15:16
PROVIDERS: ATTEND Urology
DX: N20.0 Calculus of kidney (principal)
CPT/HCPCS: 36415; 80053